=== PATIENT | female | born 1950 | race Caucasian/White ===

== ENCOUNTER → 2016-07-13 | Outpatient (CLI) | payer MEDICARE ==
--- NOTE | 2016-07-13 12:05 | REPMRS ---
Patient History The patient states she has not had a clinical breast exam in over a year. Patient is postmenopausal. Family history of premenopausal breast cancer in mother at age 50. Taking unspecified hormones for 32 years. Digital Woman Screen Mammo: July 13, 2016 - Exam #: [id number] Bilateral CC and MLO view(s) were taken. Technologist: Belia Jolley, Technologist Prior study comparison: July 14, 2015, digital woman screen mammo performed at [facility]. December 15, 2013, digital woman screen mammo performed at [facility]. December 11, 2012, digital woman screen mammo performed at [facility]. FINDINGS: There are scattered fibroglandular densities. There has been no change in the appearance of the mammogram from the prior studies. There is a mild amount of scattered fibroglandular density which is fairly symmetric. There is no interval development of dominant mass, architectural distortion, or clustered microcalcification suggestive of malignancy. ASSESSMENT: BI-RADS/ACR category 1 mammogram. Negative. Recommendation Routine screening mammogram in 1 year (for women over age 40). This mammogram was interpreted with the aid of an FDA-approved computer-aided dectection system. Electronically Signed By: Noe Burnett MD 07/13/16 [id number]
== END ==
LOC: M WHC 11:08
PROVIDERS: ATTEND Family Medicine
DX: Z12.31 Encounter for screening mammogram for malignant neoplasm of breast (principal); Z80.3 Family history of malignant neoplasm of breast; Z78.0 Asymptomatic menopausal state

== ENCOUNTER → 2016-08-15 | Outpatient (REF) | payer MEDICARE | LOC: M LAB REF 17:20 | PROVIDERS: ATTEND Family Medicine | DX: Z01.89 Encounter for other specified special examinations (principal) ==

== ENCOUNTER → 2016-12-18 | Outpatient (REF) | payer MEDICARE | LOC: M LAB REF 13:52 | PROVIDERS: ATTEND Family Medicine | DX: E78.5 Hyperlipidemia, unspecified (principal) ==

== ENCOUNTER → 2017-11-01 | Outpatient (REF) | payer MEDICARE ==
[2017-11-02 08:06] LABS: LDL DIRECT 111 mg/dL (0-99)
== END ==
LOC: M LAB REF 14:16
DX: E78.5 Hyperlipidemia, unspecified (principal)
CPT/HCPCS: 83721

== ENCOUNTER → 2018-03-07 | Outpatient (REF) | payer MEDICARE ==
[2018-03-07 14:45] LABS: URIC ACID 4.1 MG/DL (2.6-6.0)
== END ==
LOC: M LAB REF 13:48
DX: M10.9 Gout, unspecified (principal)
CPT/HCPCS: 84550

== ENCOUNTER → 2018-04-18 | Outpatient (CLI) | payer MEDICARE | LOC: M WHC 14:11 | DX: Z13.820 Encounter for screening for osteoporosis (principal); Z12.31 Encounter for screening mammogram for malignant neoplasm of breast; Z80.3 Family history of malignant neoplasm of breast; Z78.0 Asymptomatic menopausal state | CPT/HCPCS: 77067 ==

== ENCOUNTER → 2018-07-31 | Outpatient (REF) | payer MEDICARE ==
[2018-08-01 08:07] LABS: LDL DIRECT 132 mg/dL (0-99)
== END ==
LOC: M LAB REF 12:01
PROVIDERS: ATTEND Family Medicine
DX: E11.65 Type 2 diabetes mellitus with hyperglycemia (principal); E11.51 Type 2 diabetes mellitus with diabetic peripheral angiopathy without gangrene; E78.5 Hyperlipidemia, unspecified

== ENCOUNTER 2018-10-17 09:17 | Day surgery (SDC) | payer MEDICARE ==
[~2018-10-17] VITALS: Ht 154.9 cm; Wt 87.1 kg
[~2018-10-17 09:17] MED LIST: ALBU17IN2 INH; BUPR15TA PO; CLAR10CA3 PO; ESTR625TA PO; FLUT22IN INH; FURO20TA2 PO; HUMA100I3 SC; HYDR-2807 PO; INDO50CA PO; KLOR10TA76 PO; LANTINJ4 SC; LIDO5DIS41 TD; LISI10TA4 PO; MAGN64TASA PO; METO1TAB33 PO; MOME50SP; NS 1,000 ML IV ONE; SLOWTAB2 PO; SPIR1CAP INH; VITA50005 PO; VITA500T17 PO; XALA0.007 OU; ZETI10TA30 PO
[2018-10-17] MEDS ORDERED: PROPOFOL 200 MG/20 ML VIAL As Ordered ONE ×2 (10:21→10:23)
--- NOTE | 2018-10-17 10:30 | ROOR ---
Patient Name: Michelle Landon Procedure Date: 10/17/2018 9:57 AM Date of : 1950 Age: 68 Room: [facility] Gender: Female Note Status: Finalized Procedure: Colonoscopy Indications: Screening for colorectal malignant neoplasm Providers: Shayne BILLINGS MD Referring MD: Mike Montiel MD Requesting Provider: Medicines: Monitored Anesthesia Care Complications: No immediate complications. Procedure: Pre-Anesthesia Assessment: - The heart rate, respiratory rate, oxygen saturations, blood pressure, adequacy of pulmonary ventilation, and response to care were monitored throughout the procedure. The Colonoscope was introduced through the anus and advanced to the terminal ileum, with identification of the appendiceal orifice and IC valve. The colonoscopy was performed without difficulty. The patient tolerated the procedure well. The quality of the bowel preparation was good. Findings: The perianal and digital rectal examinations were normal. A 4 mm polyp was found in the sigmoid colon. The polyp was sessile. The polyp was removed with a cold snare. Resection and retrieval were complete. Multiple medium-mouthed diverticula were found in the sigmoid colon. There was evidence of diverticular spasm. Small Internal Hemorrhoids. The exam was otherwise without abnormality on direct and retroflexion views. Impression: - One 4 mm polyp in the sigmoid colon, removed with a cold snare. Resected and retrieved. - Diverticulosis in the sigmoid colon. There was evidence of diverticular spasm. - Small Internal Hemorrhoids. - The examination was otherwise normal on direct and retroflexion views. Recommendation: - Repeat colonoscopy in 5 years for surveillance. Shayne Billings MD Shayne BILLINGS MD 10/17/2018 10:30:21 AM Electronically signed by Shayne BILLINGS MD Number of Addenda: 0 Note Initiated On: 10/17/2018 9:57 AM Estimated Blood Loss: Estimated blood loss: none.
[2018-10-17 10:50] VITALS: BP 136/79
== END 2018-10-17 11:45 | disposition home or self-care (01) ==
LOC: M OPP 09:17
PROVIDERS: ATTEND Internal Medicine Gastroenterology
DX: D12.5 Benign neoplasm of sigmoid colon (principal); K57.30 Diverticulosis of large intestine without perforation or abscess without bleeding; K64.8 Other hemorrhoids; Z12.11 Encounter for screening for malignant neoplasm of colon

== ENCOUNTER → 2019-11-27 | Outpatient (REF) | payer MEDICARE ==
[~2019-11-27] MED LIST changes: -ALBU17IN2 INH; -INDO50CA PO; +INDO50CA91 PO; -NS 1,000 ML IV ONE; +PROV108A INH; +ZETI10TA16 PO; -ZETI10TA30 PO
== END ==
LOC: M LAB REF 12:22
PROVIDERS: ATTEND Family Medicine
DX: R10.9 Unspecified abdominal pain (principal); I12.9 Hypertensive chronic kidney disease with stage 1 through stage 4 chronic kidney disease, or unspecified chronic kidney disease

== ENCOUNTER → 2019-12-11 | Outpatient (REF) | payer MEDICARE ==
[~2019-12-11] MED LIST changes: +MAGN400T3 PO; +OMEG10002 PO; +POTA1TAB21; +ZYLO300T6
[2019-12-11 16:50] LABS: APPEARANCE, URINE CLOUDY (CLEAR); BACTERIA, URINE AUTO 1+ (NEGATIVE); BILIRUBIN, URINE AUTO NEGATIVE (NEGATIVE); BLOOD, URINE BLOOD 1+ (NEGATIVE); COLOR, URINE YELLOW (YELLOW); GLUCOSE, URINE (UA) AUTO NEGATIVE (NEGATIVE); KETONE, URINE AUTO NEGATIVE (NEGATIVE); LEUKOCYTE ESTERASE, URINE AUTO 3+ (NEGATIVE); MUCUS, URINE SMALL (NEGATIVE); NITRITE, URINE AUTO NEGATIVE (NEGATIVE); PROTEIN, URINE AUTO NEGATIVE (NEGATIVE); RBC, URINE AUTO 6 /HPF (0-3); SPECIFIC GRAVITY URINE AUTO 1.014 (1.002-1.035); SQUAMOUS EPITHELIAL CELL UR AU 5 /HPF (0-6); UROBILINOGEN, URINE AUTO 0.2 mg/dL (0.0-2.0); WBC, URINE AUTO TNTC /HPF (0-3)
== END ==
LOC: M LAB REF 16:07
PROVIDERS: ATTEND Family Medicine
DX: N18.4 Chronic kidney disease, stage 4 (severe) (principal); R60.9 Edema, unspecified

== ENCOUNTER 2019-12-16 13:40 | Emergency (ER) | payer MEDICARE ==
[~2019-12-16] VITALS: Ht 154.9 cm; Wt 86.0 kg
[~2019-12-16 13:40] MED LIST changes: -MAGN400T3 PO; -OMEG10002 PO; -POTA1TAB21; -ZYLO300T6
[2019-12-16] MEDS ORDERED: OMEG10002 PO (13:56)
[2019-12-16] MEDS ORDERED: ZYLO300T6 (13:56)
[2019-12-16] MEDS ORDERED: MAGN400T3 PO (13:56)
[2019-12-16] MEDS ORDERED: POTA1TAB21 (13:56)
[2019-12-16 14:35] LABS: BASO # 0.1 10^3/uL (0.0-0.2); BASO % 0.8 % (0.0-1.0); EOS # 0.3 10^3/uL (0.0-0.5); EOS % 2.9 % (0.0-3.0); HEMATOCRIT 40.2 % (36.0-47.0); HEMOGLOBIN 13.3 g/dl (12.0-15.5); LYMPH # 2.9 10^3/uL (1.5-5.0); LYMPH % 32.9 % (24.0-44.0); MEAN CORPUSCULAR HEMOGLOBIN 30.9 pg (27.0-33.0); MEAN CORPUSCULAR HGB CONC 33.1 g/dl (32.0-36.5); MEAN CORPUSCULAR VOLUME 93.5 fl (80.0-96.0); MONO # 0.7 10^3/uL (0.0-0.8); MONO % 8.2 % (0.0-5.0); NEUTROPHILS # 4.9 10^3/uL (1.5-8.5); NEUTROPHILS % 55.1 % (36.0-66.0); PLATELET COUNT, AUTOMATED 203 10^3/uL (150-450); WHITE BLOOD COUNT 8.8 10^3/uL (4.0-10.0)
--- NOTE | 2019-12-16 15:41 | REP ---
CT ABDOMEN PELVIS WITHOUT IV OR ORAL CONTRAST: HISTORY: Lap band surgical history. Abdominal wall erosion. Comparison CT study June 05, 2008. 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 Bowel gas pattern is unremarkable. On axial CT images, the lung bases are essentially clear with minimal linear fibrosis on the right. A lap band is seen in place in the left upper quadrant. No hepatic or splenic focal lesion is seen. No abnormalities noted in the gallbladder or the pancreas. Normal adrenal glands are seen bilaterally. There is mild subcutaneous edema in the anterior abdominal wall predominately to the left of midline. The lap band reservoir access device is in the anterior abdominal subcutaneous fat just to the right of midline. There is no evidence of free intraperitoneal air or fluid. No abnormal fluid collection is seen. Small and large bowel loops are unremarkable the appendix is not well seen but there is no inflammatory change to suggest appendicitis. Uterus is surgically absent. IMPRESSION: Lap band device left upper quadrant appears in good position. There is no evidence of free air or abnormal fluid collection. No acute intra-abdominal abnormality. There is some edema of the anterior abdominal wall. Electronically Signed by Ramy Burnett MD 12/17/2019 08:10 A
[2019-12-16 16:12] VITALS: BP 158/70
== END 2019-12-16 16:19 | disposition home or self-care (01) ==
LOC: M ED 13:40
DX: S31.109A Unspecified open wound of abdominal wall, unspecified quadrant without penetration into peritoneal cavity, initial encounter (principal); K95.09 Other complications of gastric band procedure; Z79.4 Long term (current) use of insulin; Z79.51 Long term (current) use of inhaled steroids; Z79.899 Other long term (current) drug therapy; Z88.2 Allergy status to sulfonamides; Z88.8 Allergy status to other drugs, medicaments and biological substances

== ENCOUNTER 2019-12-26 14:52 | Emergency (ER) | payer MEDICARE ==
[~2019-12-26] VITALS: Ht 154.9 cm; Wt 85.3 kg
[~2019-12-26 14:52] MED LIST changes: +MAGN400T3 PO; +OMEG10002 PO; +POTA1TAB21; +ZYLO300T6
[2019-12-26] MEDS ORDERED: GASTROGRAFIN SOLUTION 30ML (Q9963) As Ordered ONE (15:27)
[2019-12-26] MEDS: GASTROGRAFIN SOLUTION 30ML PO SCH ×2 (15:48→16:17)
[2019-12-26 16:09] LABS: BASO # 0.1 10^3/uL (0.0-0.2); BASO % 0.9 % (0.0-1.0); EOS # 0.3 10^3/uL (0.0-0.5); EOS % 2.9 % (0.0-3.0); HEMATOCRIT 40.7 % (36.0-47.0); LYMPH # 3.3 10^3/uL (1.5-5.0); LYMPH % 36.7 % (24.0-44.0); MEAN CORPUSCULAR HEMOGLOBIN 31.1 pg (27.0-33.0); MEAN CORPUSCULAR HGB CONC 34.4 g/dl (32.0-36.5); MEAN CORPUSCULAR VOLUME 90.4 fl (80.0-96.0); MONO # 0.6 10^3/uL (0.0-0.8); MONO % 6.1 % (0.0-5.0); NEUTROPHILS # 4.8 10^3/uL (1.5-8.5); NEUTROPHILS % 53.1 % (36.0-66.0); PLATELET COUNT, AUTOMATED 187 10^3/uL (150-450)
[2019-12-26 16:20] LABS: ALBUMIN 3.7 GM/DL (3.2-5.2); ALT/SGPT 68 U/L (12-78); BILIRUBIN,DIRECT < 0.1 MG/DL (0.0-0.2); BILIRUBIN,TOTAL 0.3 MG/DL (0.2-1.0); BLOOD UREA NITROGEN 40 MG/DL (7-18); CALCIUM LEVEL 9.9 MG/DL (8.8-10.2); CARBON DIOXIDE LEVEL 26 MEQ/L (21-32); CHLORIDE LEVEL 100 MEQ/L (98-107); CK-MB VALUE MASS 10.1 NG/ML (<3.6); CPK CREATINE PHOSPHOKINASE 349 U/L (26-192); CREATININE FOR GFR 1.52 MG/DL (0.55-1.30); GLOMERULAR FILTRATION RATE 35.9 (>39); GLUCOSE, FASTING 300 MG/DL (70-100); LIPASE 359 U/L (73-393); MB/CK RELATIVE INDEX 2.89 (< OR =4); SODIUM LEVEL 134 MEQ/L (136-145); TOTAL PROTEIN 7.3 GM/DL (6.4-8.2); TROPONIN I < 0.02 NG/ML (< 0.10)
[2019-12-26 16:21] LABS: INR 1.1; PROTHROMBIN TIME 13.9 SECONDS (11.8-14.0)
[2019-12-26 16:22] LABS: PARTIAL THROMBOPLASTIN TIME 33.8 SECONDS (25.0-38.4)
[2019-12-26] MEDS ORDERED: NS 500 ML IV ONE (16:30)
[2019-12-26] MEDS ORDERED: ISOVUE-370 76% 100ML VIAL As Ordered ONE (17:25)
--- NOTE | 2019-12-26 18:05 | REPVR ---
PROCEDURE INFORMATION: Exam: CT Abdomen And Pelvis With Contrast Exam date and time: 12/26/2019 5:43 PM Age: 69 years old Clinical indication: Abdominal pain; Generalized; Additional info: S/P lap band with band coming through abdominal wall TECHNIQUE: Imaging protocol: Computed tomography of the abdomen and pelvis with intravenous contrast. Radiation optimization: All CT scans at this facility use at least one of these dose optimization techniques: automated exposure control; mA and/or kV adjustment per patient size (includes targeted exams where dose is matched to clinical indication); or iterative reconstruction. Contrast material: ISOVUE 370; Contrast volume: 100 ml; Contrast route: INTRAVENOUS (IV); COMPARISON: CT ABD PELVIS W/O CONTRAST 12/16/2019 2:55 PM FINDINGS: Lungs: Bilateral noncalcified pulmonary parenchymal nodules measuring up to 6 mm likely postinflammatory. Liver: Examination of the liver demonstrates a lobular surface contour, and enlargement of the left and caudate lobes, findings which may be consistent with cirrhosis in the appropriate clinical setting. Hepatic steatosis. Gallbladder and bile ducts: Normal. No calcified stones. No ductal dilation. Pancreas: Normal. No ductal dilation. Spleen: Normal. No splenomegaly. Adrenals: There is bilateral adrenal hyperplasia. Kidneys and ureters: Normal. No hydronephrosis. Stomach and bowel: Status post lap banding. There is increased feces throughout the colon consistent with constipation. Appendix: No evidence of appendicitis. Intraperitoneal space: Unremarkable. No free air. No significant fluid collection. Vasculature: The aorta demonstrates mild atherosclerotic calcification. Lymph nodes: Unremarkable. No enlarged lymph nodes. Bladder: Unremarkable as visualized. Reproductive: There has been a hysterectomy. Bones/joints: Moderate to severe central spinal stenosis at L2-L3, L3-L4, and L4-L5. Soft tissues: [place] device located in the right side of the abdomen within the subcutaneous fat of the anterior abdominal wall with tubing coursing through the right upper quadrant the to the lap band. Inflammatory changes demonstrated in the soft tissues of the anterior abdominal wall centered to the right of midline associated with skin thickening. Clinical correlation to exclude infection suggested. IMPRESSION: 1. Bilateral noncalcified pulmonary parenchymal nodules measuring up to 6 mm likely postinflammatory. For patients at low risk (minimal or absent history of smoking and of other known risk factors), no routine follow-up is indicated. For patients at high risk (history of smoking or of other known risk factors), consider optional CT at 12 months. (Matias et al., Fleischner Society, 2017) 2. Examination of the liver demonstrates a lobular surface contour, and enlargement of the left and caudate lobes, findings which may be consistent with cirrhosis in the appropriate clinical setting. Hepatic steatosis. 3. Status post lap banding. 4. There is bilateral adrenal hyperplasia. 5. Inflammatory changes demonstrated in the soft tissues of the anterior abdominal wall centered to the right of midline associated with skin thickening. Clinical correlation to exclude infection suggested. 6. There is increased feces throughout the colon consistent with constipation. 7. There has been a hysterectomy. Electronically signed by: Devon Conde On 12/26/2019 18:05:27 PM
[2019-12-26 19:04] LABS: NT-PRO BNP 63 PG/ML (<125)
[2019-12-26] MEDS ORDERED: AUGM875T28 PO (20:04)
[2019-12-26 21:23] VITALS: BP 136/73
[2019-12-26] MEDS ORDERED: COLA100C5 PO (21:36)
[2019-12-26] MEDS ORDERED: AUGMENTIN 875 MG TAB PO ONE (21:45)
--- NOTE | 2019-12-31 09:32 | ED PDOC ---
Post-Departure Follow-Up ct abd/p faxed to [facility] for fu Josseline Brown MD Dec 31, 2019 09:32
== END 2019-12-26 21:57 | disposition home or self-care (01) ==
LOC: M ED 14:52
DX: K95.89 Other complications of other bariatric procedure (principal); K76.0 Fatty (change of) liver, not elsewhere classified; R91.8 Other nonspecific abnormal finding of lung field; E27.8 Other specified disorders of adrenal gland; E11.9 Type 2 diabetes mellitus without complications; I10 Essential (primary) hypertension; E78.5 Hyperlipidemia, unspecified; K21.9 Gastro-esophageal reflux disease without esophagitis; Z79.4 Long term (current) use of insulin; Z79.51 Long term (current) use of inhaled steroids; Z79.899 Other long term (current) drug therapy; Z87.442 Personal history of urinary calculi; Z87.891 Personal history of nicotine dependence; Z88.2 Allergy status to sulfonamides; Z88.8 Allergy status to other drugs, medicaments and biological substances; Z98.84 Bariatric surgery status
CPT/HCPCS: 74177; 80048; 80076; 81001; 82550; 82553; 83605; 83690; 83880; 84484; 85025; 85610; 85730; 87040; 87088; 87186; 99284; Q9967

== ENCOUNTER → 2020-02-16 | Outpatient (REF) | payer MEDICARE ==
[~2020-02-16] MED LIST changes: +AUGM875T28 PO; +COLA100C5 PO; -HYDR-2807 PO; +HYDR-4433 PO
== END ==
LOC: M SFHCLUC 11:18
PROVIDERS: ATTEND Nurse Practitioner Family
DX: R30.0 Dysuria (principal)

== ENCOUNTER → 2020-03-17 | Outpatient (REF) | payer MEDICARE | LOC: M LAB REF 16:02 | PROVIDERS: ATTEND Family Medicine | DX: N39.0 Urinary tract infection, site not specified (principal) ==

== ENCOUNTER → 2020-06-07 | Outpatient (CLI) | payer MEDICARE | LOC: M LABSMTC 11:31 | PROVIDERS: ATTEND Pediatrics | DX: Z20.828 Contact with and (suspected) exposure to other viral communicable diseases (principal) ==

== ENCOUNTER 2020-09-19 15:20 | Inpatient (IN) | payer MEDICARE ==
[2020-09-19] VITALS (13 sets, daily range): BP systolic 153–184; BP diastolic 71–80
[~2020-09-19] VITALS: Ht 157.5 cm; Wt 84.4 kg
[2020-09-19] MEDS: HumaLOG INSULIN (NovoLOG) PER UNIT SC SCH ×4 (07:30→23:00)
[~2020-09-19 15:20] MED LIST changes: +LISI10TA22 PO; -LISI10TA4 PO; -MOME50SP; +MOME50SP NARES; -POTA1TAB21; +POTA1TAB21 PO; -ZYLO300T6; +ZYLO300T6 PO
[2020-09-19 16:02] LABS: BASO % 0.2 % (0.0-1.0); HEMATOCRIT 47.3 % (36.0-47.0); HEMOGLOBIN 15.7 g/dl (12.0-15.5); LYMPH # 1.8 10^3/uL (1.5-5.0); LYMPH % 8.7 % (24.0-44.0); MEAN CORPUSCULAR HEMOGLOBIN 29.3 pg (27.0-33.0); MEAN CORPUSCULAR HGB CONC 33.2 g/dl (32.0-36.5); MEAN CORPUSCULAR VOLUME 88.4 fl (80.0-96.0); MONO # 1.4 10^3/uL (0.0-0.8); MONO % 6.9 % (2.0-8.0); NEUTROPHILS # 17.3 10^3/uL (1.5-8.5); NEUTROPHILS % 83.3 % (36.0-66.0); PLATELET COUNT, AUTOMATED 255 10^3/uL (150-450); RED BLOOD COUNT 5.35 10^6/uL (4.00-5.40); WHITE BLOOD COUNT 20.7 10^3/uL (4.0-10.0)
[2020-09-19] MEDS ORDERED: NS 1,000 ML IV ONE ×2 (16:20→18:15)
[2020-09-19] MEDS: HYDROMORPHONE HCL 0.5 MG/ 0.5 ML SYRINGE (J1170 PER 1) IV PRN ×2 (16:24→17:00)
[2020-09-19] MEDS ORDERED: PANTOPRAZOLE 40MG VIAL (C9113 PER 1) IV ONE (16:30)
[2020-09-19] MEDS ORDERED: ISOVUE-370 76% 100ML VIAL As Ordered ONE (16:31)
--- NOTE | 2020-09-19 17:42 | REP ---
INDICATION: abdominal pain, coffee ground emesis. COMPARISON: Abdomen pelvis CT studies dated 12/26/2019 and 12/16/2019. TECHNIQUE: Abdomen and pelvis CT with IV and bowel contrast. FINDINGS: The visualized lung dawson are unremarkable. There is a lap band surrounding the gastroesophageal junction as previously. However, the subcutaneous reservoir this lab band that was present previously is no longer identified. The proximal tip of the lap band catheter is intraperitoneal along the right lateral abdominal wall just inferior to the tip of the liver. There is herniation of intraperitoneal fat through the previous lap band entrance site. The hernia measures 2.3 cm in diameter. The peritoneal defect measures 7 mm in diameter. There is a small volume of free fluid surrounding the lateral margin of the liver as an interval change. The stomach is distended with fluid and there is an air-fluid level in the stomach. There are no hepatic masses or nodules. There is no biliary duct dilatation. The gallbladder is distended but otherwise unremarkable. There is no pericholecystic fluid. No cholelithiasis. Up There is focal phlegmon medial to the descending duodenum and inferior to the pancreatic head. Within the zone of phlegmon there appears to be some of the opacified bowel contents and a few tiny air bubbles. This may represent duodenal perforation, possibly perforated ulcer. There is no pneumoperitoneum otherwise. There are a few distended small bowel loops, possibly focal ileus. There is no evidence of bowel obstruction. Is no colonic distention. There is wall thickening of the descending colon. This is compatible with inflammatory versus infectious colitis in the appropriate clinical setting. The spleen and pancreas are otherwise unremarkable. The adrenals and kidneys are unremarkable. The abdominal aorta is unremarkable except for calcified atheroma. There is no periaortic adenopathy or mass. Pelvis: There is no free fluid. The bladder is unremarkable. There is a hysterectomy. The vaginal cuff and adnexa are unremarkable. The bladder is unremarkable except for a tiny air bubble along the anterior wall. IMPRESSION: There is a large phlegmon measuring approximately 5.7 cm in diameter medial to the descending duodenum and inferior to the pancreatic head containing opacified bowel content and a few tiny air bubbles. This may represent duodenal perforation, possibly perforation of a duodenal ulcer. There is no pneumoperitoneum otherwise. There is a small volume of free fluid surrounding the lateral margin of the liver. The stomach is distended with fluid with and containing a large fluid level. There findings concerning the lap band as discussed in detail above. The reservoir is no longer identified. The proximal tip of the catheter is intraperitoneal along the lateral abdominal wall. There is a fat containing hernia through the original lap band ostomy site. There are a few dilated small bowel loops, possibly focal ileus. No evidence of bowel obstruction. There is a tiny air bubble long the anterior wall of the bladder, possibly from recent catheterization. <Electronically signed by Bear Leach > 09/19/20 [id number]
[2020-09-19 17:47] LABS: ALBUMIN 3.2 GM/DL (3.2-5.2); BILIRUBIN,DIRECT 0.2 MG/DL (0.0-0.2); BILIRUBIN,TOTAL 0.5 MG/DL (0.2-1.0); CALCIUM LEVEL 8.7 MG/DL (8.8-10.2); CREATININE FOR GFR 1.52 MG/DL (0.55-1.30); GLOMERULAR FILTRATION RATE 35.9 (>39); POTASSIUM SERUM 4.8 MEQ/L (3.5-5.1); TOTAL PROTEIN 6.2 GM/DL (6.4-8.2)
[2020-09-19] MEDS ORDERED: HYDROMORPHONE HCL 0.5 MG/ 0.5 ML SYRINGE (J1170 PER 1) IV PRN (18:15)
[2020-09-19] MEDS ORDERED: HumuLIN R (REGULAR) INSULIN (NovoLIN R) **100U/ML** PER UNIT IV ONE (18:20)
[2020-09-19] MEDS ORDERED: LIDO5DIS41 TD (18:46)
[2020-09-19] MEDS ORDERED: VITA50005 PO (18:46)
[2020-09-19] MEDS ORDERED: ESTR3TA PO (18:46)
[2020-09-19] MEDS ORDERED: propofoL 200 MG/20 ML VIAL As Ordered ONE (18:54)
[2020-09-19] MEDS ORDERED: ROCURONIUM BROMIDE 50 MG/5 ML VIAL As Ordered ONE (18:54)
[2020-09-19] MEDS ORDERED: LIDOCAINE 2% 100MG/5ML SDV (FOR ANES.) As Ordered ONE (18:54)
[2020-09-19] MEDS ORDERED: fentaNYL 250 MCG/5 ML INJECTION (J3010) As Ordered ONE (18:54)
[2020-09-19] MEDS ORDERED: MIDAZOLAM INJ 2MG/2ML VIAL (J2250 PER 1MG) As Ordered ONE (18:54)
[2020-09-19] MEDS ORDERED: BUPIVACAINE/EPIN 0.25% 30 ML VIAL As Ordered ONE (19:00)
[2020-09-19 19:02] LABS: RSV AMPLIFICATION NEGATIVE (NEGATIVE)
--- NOTE | 2020-09-19 19:37 | ECGEPIP ---
[facility] - ED Test Date: 2020-09-19 Pat Name: MARISOL COBOS Department: Room: - Gender: Female Presentation Manager: CARLA : 1950 Requested By: SHAYNE Lyons Order Number: [id number] Reading MD: Shayne Gomes Measurements Intervals [place] Rate: 111 P: 76 CO: 178 QRS: -57 QRSD: 120 T: 93 QT: 338 QTc: 459 Interpretive Statements Sinus tachycardia Left axis deviation Left ventricular hypertrophy with QRS widening and repolarization abnormality Possible Anteroseptal infarct , age undetermined Comparison tracing not on file Electronically Signed on 09-19-2020 19:37:32 EDT by Shayne Gomes
[2020-09-19] MEDS ORDERED: UNASYN 3 GM VIAL As Ordered ONE (19:41)
[2020-09-19] MEDS ORDERED: FLUTICASONE HFA 220 MCG 12 GM INHALER (FLOVENT) INH PRN (20:00)
--- NOTE | 2020-09-19 20:01 | REPVR ---
PROCEDURE INFORMATION: Exam: XR Chest Exam date and time: 09/19/2020 6:23 PM Age: 69 years old Clinical indication: Pre-operative exam; Respiratory screening exam; Additional info: Preop TECHNIQUE: Imaging protocol: XR of the chest Views: 1 view. COMPARISON: No relevant prior studies available. FINDINGS: Lungs: Unremarkable. No consolidation. Pleural spaces: Unremarkable. No pleural effusion. No pneumothorax. Heart/Mediastinum: Unremarkable. No cardiomegaly. Bones/joints: The spine demonstrates moderate degenerative changes. IMPRESSION: No acute findings. Electronically signed by: Devon Conde On 09/19/2020 20:01:29 PM
[2020-09-19] MEDS ORDERED: SUCCINYLCHOLINE 100 MG/5 ML SYRINGE (J0330) As Ordered ONE (20:14)
[2020-09-19] MEDS ORDERED: diphenhydrAMINE 50MG/ML VIAL (J1200) As Ordered ONE (20:15)
[2020-09-19] MEDS ORDERED: SUGAMMADEX SODIUM 500 MG/5 ML VIAL (BRIDION) As Ordered ONE (20:15)
[2020-09-19] MEDS ORDERED: KETOROLAC 60MG 2ML VIAL As Ordered ONE (20:15)
[2020-09-19] MEDS ORDERED: ACETAMINOPHEN 1000MG 100ML IV BTL (OFIRMEV) (J0131 PER 10MG) As Ordered ONE (20:15)
[2020-09-19] MEDS ORDERED: ONDANSETRON 4MG/2ML VIAL As Ordered ONE (20:15)
[2020-09-19] MEDS ORDERED: ESMOLOL INJ 100MG/10ML VIAL As Ordered ONE (20:21)
[2020-09-19] MEDS ORDERED: HumaLOG INSULIN (NovoLOG) PER UNIT SC SCH (21:00)
[2020-09-19] MEDS ORDERED: FUROSEMIDE 20 MG TAB PO SCH (21:00)
[2020-09-19] MEDS: buPROPion **SR TABLET** (ZYBAN) 150MG PO SCH (21:00)
[2020-09-19] MEDS: LABETALOL 100MG/20ML VIAL IV SCH ×13 (21:13→22:30)
[2020-09-19] MEDS ORDERED: ALBUTEROL 90 MCG/ACT 8GM HFA INHALER INH SCH (21:15)
[2020-09-19] MEDS ORDERED: DEXTROSE 50% 50 ML SYRINGE IV PRN ×2 (21:15→23:00)
[2020-09-19] MEDS ORDERED: PIPERACILLIN/TAZOBACTAM SOD 3.375 GM in D5W MINI-BAG PLUS 50 ML IV SCH (21:15)
[2020-09-19] MEDS ORDERED: GLUCOSE 4GM CHEW TABLET PO PRN ×2 (21:15→23:00)
[2020-09-19] MEDS ORDERED: GLUCAGON INJ 1MG VIAL SC PRN ×2 (21:15→23:00)
[2020-09-19] MEDS ORDERED: fentaNYL 100 MCG/2 ML INJECTION (J3010) As Ordered ONE (21:20)
[2020-09-19] MEDS ORDERED: LABETALOL 100MG/20ML VIAL As Ordered ONE (21:20)
[2020-09-19] MEDS ORDERED: METOPROLOL 5 MG/5 ML VIAL IV STA (21:21)
[2020-09-19] MEDS: fentaNYL 100 MCG/2 ML INJECTION (J3010) IV PRN ×4 (21:22→22:51)
[2020-09-19] MEDS ORDERED: LR 1,000 ML IV SCH (21:30)
[2020-09-19] MEDS ORDERED: fentaNYL 100 MCG/2 ML INJECTION (J3010) IV PRN (21:30)
[2020-09-19] MEDS ORDERED: oxyCODONE 5MG TAB PO PRN (21:30)
[2020-09-19] MEDS ORDERED: METOPROLOL 5 MG/5 ML VIAL IV PRN (22:40)
--- NOTE | 2020-09-19 22:53 | HPE ---
HISTORY AND PHYSICAL DATE OF ADMISSION: 09/19/2020 ADMITTING DIAGNOSIS: Abdomen pain. HISTORY OF PRESENT ILLNESS: This is a 70-year-old female, who presented with history of abdominal pain that started yesterday afternoon. Pain got progressively worse overnight into this morning. She came into the emergency room for evaluation. She was having some slight nausea, no emesis. No bowel movements in a couple of days. On examination, she had an elevated white count, as well as CT findings consistent with phlegmon surrounding the duodenum with a couple of small air bubbles within it, questionable perforated duodenal ulcer. Because of this, I was called to evaluate. She denied ever having any problems like this in the past. She has had a history of a lap band that was dislodged a few years ago and the subcu port had been removed, but all the rest of the band of the tubing had been left in place. She has not had any other problems since that procedure. She denies any other changes. No changes to diet or medications recently. No changes in activity. She has never had problems with acid reflux or heartburn in the past, but says that she did have some last evening for the first time ever. She denies being on any medications for those, other than she used to take occasional Zantac. She denies drug, alcohol or tobacco usage. No caffeine. No [id number] medications. PAST MEDICAL HISTORY: 1. Hypertension. 2. Diabetes. 3. Chronic obstructive pulmonary disease (COPD). PAST SURGICAL HISTORY: Hysterectomy, lap band procedure, removal of lap band subcutaneous port, carpal tunnel. ALLERGIES: SULFA, FENOFIBRATE, PHENAZOPYRIDINE, PSEUDOPHEDRINE, ROSUVASTATIN HOME MEDICATIONS: Please see med rec REVIEW OF SYSTEMS: For positives and negatives, as stated in history of present illness. SOCIAL HISTORY: Denies drugs, alcohol or tobacco abuse. FAMILY HISTORY: Noncontributory. PHYSICAL EXAMINATION: Alert and oriented times 3, in no acute distress. Vitals: Temperature 98.6, pulse 112, respirations 26, blood pressure 135/92, pulse oximetry 98% on room air. HEENT: Pupils equal, round and reactive to light and accommodation. Heart: S1, S2 regular rate and rhythm. Lungs: Clear to auscultation bilaterally. Abdomen: Soft, tender to palpation in the upper abdomen with low, guarding and rigidity. Extremities: No clubbing, cyanosis or edema. LABORATORY: White count 20.7, hemoglobin 15.7, platelets 255. Lactic acid 3.5. Glucose 439. IMAGING: CT abdomen and pelvis shows a large phlegmon measuring approximately 5.7 cm in diameter medial to the descending duodenum and inferior to the pancreatic head containing opacified bowel content and a few tiny air bubbles; it may represent duodenal perforation, possibly perforation of duodenal ulcer. There is no pneumoperitoneum otherwise. There is small bowel and free fluid surrounding the lateral margin of the liver. The stomach is distended with fluid containing a large fluid bubble. ASSESSMENT AND PLAN: The patient is a 69-year-old female with a history of a lap band procedure, as well as what sounds to be an infected subcutaneous port that was subsequently removed. She presents today with severe abdominal pain with signs of phlegmon next to the duodenum and the pancreas, a couple of air bubbles concerning for contained perforation versus perforated duodenal ulcer. Recommendation at this time is to proceed with exploratory laparoscopy done robotically with washout of the abdomen and possible oversewing over this duodenal ulcer. Risks and benefits of the procedure are not limited to, but included bleeding, infection, hernias, damage to surrounding structures and need for further surgery were discussed in detail with the patient. Informed consent was obtained and procedure was planned. Postoperative, she will be kept in the hospital on IV fluids and antibiotics, strict NPO with NG tube in place until this process resolves. I warned her that due to the severe inflammation in the area she may be at high risk, greater than 50% chance of needing a second surgery during her hospitalization. She understands and signed consent and procedure was planned urgently.
[2020-09-19] MEDS ORDERED: niCARdipine 40MG IN 200ML NACL IV BAG As Ordered ONE (22:55)
[2020-09-19] MEDS ORDERED: LEVEMIR (INSULIN DETEMIR) 1 UNITS/0.01ML SC SCH (23:00)
--- NOTE | 2020-09-19 23:31 | HPEPDOC ---
[facility] Medical History & Physical Date of Admission Sep 19, 2020 Date of Service: Sep 19, 2020 Primary Care Physician: NICOLE TINAJERO M.D. Attending Physician: LOGAN RAI DO History and Physical TIME OF SERVICE: 1045pm REASON FOR CONSULT: Medical co-management CC: vomiting blood HISTORY OF PRESENT ILLNESS: This 69 yr old F had a lap gastric bypass 8 yrs ago with revision to remove an infected port about 8 months ago. Today she presented w c/o vomiting blood and 10/10 in severity sharp constant abdominal pain; due to suspicion that she may have a perforated duodenal ulcer she underwent ex robotic laparoscopy and was found to have an intra-abdominal abscess surrounding lap band procedure materials along with adhesions. Post-operatively she was found to have accele rated HTN with an SBP in the 200s. At the time of my evaluation the patient was lucid, and c/o some abdominal pain. She denied having any chest pain, dyspnea, dizziness or back pain. She last took her medications yesterday. PACU staff reported that the pt had previously been confused and had asked them to move the roof. REVIEW OF SYSTEMS: 12-point review of systems negative except as listed in HPI PAST MEDICAL/ SURGICAL HISTORY: IDDM CKD3 Essential HTN DLP COPD/Asthma Glaucoma KAREN not complaint w CPAP Vision impairment uses glasses OA / Debility uses cane/ walker Gout Class 2 obestiy s/p lap gastric bypass 8 yrs ago w revision 8 months ago Vitamin D deficiency Bilateral carpel tunnel surgery Hysterectomy SOCIAL HISTORY: She is a former smoker, from her , lives alone and has meals on wheels FAMILY HISTORY: Father of PNA, mother as a result of breast cancer, sister had laryngeal cancer, brother had stomach cancer, daughter has anorexia/bulimia ALLERGIES: Please see below. HOME MEDICATIONS: Please see below. PHYSICAL EXAMINATION: Vital Signs Date Time Temp Pulse Resp B/P (MAP) Pulse Ox O2 Delivery O2 Flow Rate FiO2 09/19/20 15:29 135/92 (106) 09/19/20 15:35 113 98 09/19/20 15:37 98.6 26 Room Air 09/19/20 21:20 4 .GENERAL APPEARANCE: well nourished well developed/ NAD HEENT: EOMI / NC in place CARDIOVASCULAR: RRR/NMRG LUNGS: CTAB on RA ABDOMEN: obese / post surgical drains w serrosanginous fluid in place NEUROLOGICAL: speech not dysarthric PSYCHIATRIC: alert, able to answer questions and follow simple commands LABORATORY DATA: 09/19/20 15:39 09/19/20 16:57 Immature Granulocyte % (Auto) 0.9, Neutrophils (%) (Auto) 83.3H, Lymphocytes (%) (Auto) 8.7L, Monocytes (%) (Auto) 6.9, Eosinophils (%) (Auto) 0.0, Basophils (%) (Auto) 0.2, Neutrophils # (Auto) 17.3H, Lymphocytes # (Auto) 1.8, Monocytes # (Auto) 1.4H, Eosinophils # (Auto) 0.0, Basophils # (Auto) 0.0, Nucleated Red Blood Cells % (auto) 0.0, Lactic Acid Level 3.5*H 09/19/20 15:45: POC Glucose (Misc Panel) 481H, POC Sodium (Misc Panel) 133L, POC Potassium (Misc Panel) 4.8, POC Chloride (Misc Panel) 94L, POC Total CO2 (Misc Panel) 30.0H, POC Blood Urea Nitrogen (Misc Panel 39H, POC Ionized Calcium (Misc Panel) 4.5, POC Creatinine (Misc Panel) 1.4H, POC Hematocrit (Misc Panel) 50.0 09/19/20 16:57: Anion Gap 9, Glomerular Filtration Rate 35.9L, Calcium Level 8.7L, Total Bilirubin 0.5, Direct Bilirubin 0.2, Aspartate Amino Transf (AST/SGOT) 43H, Alanine Aminotransferase (ALT/SGPT) 51, Alkaline Phosphatase 89, Total Protein 6.2L, Albumin 3.2, Albumin/Globulin Ratio 1.1L, Lipase 5612H 09/19/20 18:29: Bedside Glucose (Misc Panel) 372H 09/19/20 21:10: Bedside Glucose (Misc Panel) 302H 09/19/20 22:54: Bedside Glucose (Misc Panel) 264H IMAGING: CT abd/pelvis IMPRESSION: There is a large phlegmon measuring approximately 5.7 cm in diameter medial to the descending duodenum and inferior to the pancreatic head containing opacified bowel content and a few tiny air bubbles. This may represent duodenal perforation, possibly perforation of a duodenal ulcer. There is no pneumoperitoneum otherwise. There is a small volume of free fluid surroun ding the lateral margin of the liver.The stomach is distended with fluid with and containing a large fluid level. There findings concerning the lap band as discussed in detail above. The reservoir is no longer identified. The proximal tip of the catheter is intraperitoneal along the lateral abdominal wall. There is a fat containing hernia through the original lap band ostomy site. There are a few dilated small bowel loops, possibly focal ileus. No evidence of bowel obstruction. There is a tiny air bubble long the anterior wall of the bladder, possibly from recent catheterization. Chest xray IMPRESSION: No acute findings. MICROBIOLOGY: Coronavirus (COVID-19)(PCR) NEGATIVE, Influenza Type A (RT-PCR) NEGATIVE, Influenza Type B (RT-PCR) NEGATIVE, Respiratory Syncytial Virus (PCR) NEGATIVE ASSESSMENT: is a 69 yr old w a hx of lap band procedure that was revised 8 months ago, IDDM, CKD3, HTN, COPD/Asthma, Gout, & obesity who underwent ex robotic laparoscopy and was found to have an intra-abdominal abscess surrounding lap band procedure materials; we were consulted for medical co-management. PLAN: 1. Sepsis 2/2 Intraabdominal abscess Abx and IVF per 2 Acute pancreatitis NPO & pain meds per 3 Hypertensive Urgency Her BP didnt improve despite IV Nicardipine, IV metoprolol and pain meds Will transfer to ICU for Nicardipine drip / agree w continuing Lisinopril for now & will f/u BMP in the morning / check troponin 4 Uncontrolled IDDM Agree w SSI, FSBS and holding long acting insulin until she is able to eat / f/u A1C 5 Encephalopathy Had resolved at the time of my visit. May have been due sedatives, pain or HTN encephalopathy Will order neurochecks, c/w pain meds & treat HTN 6 COPD/Asthma Agree w albuterol PRN 7 CKD3 f/u BMP DVT px per Primary team Thank you for consulting us, we will continue to follow the patient with you Dispo: home after at least 2 midnights stay Late entry 300am 8 Elevated troponin likely 2/2 accelerated HTN We will order telemetry, continue to trend troponins, repeat an EKG, check lipids and an Echo Home Medications Scheduled Albuterol Sulfate (Proventil Hfa) 108 Mcg/Act Aer, 2 MCG INH Q4DP Allopurinol (Zyloprim) 300 Mg Tablet, 300 MG PO DAILY Amoxicillin/Potassium Clav (Augmentin 875-125 Tablet) 1 Each Tablet, 1 TAB PO BID Bupropion HCl (Wellbutrin Sr) 150 Mg Tabcr, 150 MG PO BID Conjugated Estrogens (Premarin) 0.3 Mg Tablet, 0.3 MG PO Q3RD Cyanocobalamin (Vitamin B-12) (Vitamin B-12) 500 Mcg Tab, 500 MCG PO DAILY Ergocalciferol (Vitamin D2) (Vitamin D2) 50,000 Units Cap, 50,000 UNITS PO 1XWK SUNDAYS Ezetimibe (Zetia) 10 Mg Tab, 10 MG PO DAILY Furosemide (Furosemide) 20 Mg Tab, 40 MG PO BID Hydrocodone/Acetaminophen (Hydrocodone-Acetamin 10-300 mg) 1 Tab Tab, 1 TAB PO Q6HP Insulin Glargine,Hum.rec.anlog (Lantus Solostar) 100 Unit/Ml Inj, 60 UNITS SC BID Insulin Lispro (Humalog) 100 Unit/Ml Inj, 1 DOSE SC TID sliding scale with meals L.acidoph/L.bulg/B.bif/S.therm (Elizabeth-Bid Caplet) 1 Each Tablet, 1 EA PO BIDWM Lisinopril (Lisinopril) 10 Mg Tab, 10 MG PO DAILY Lisinopril (Lisinopril) 10 Mg Tablet, 10 MG PO BID Loratadine (Claritin) 10 Mg Cap, 10 MG PO DAILY Mometasone Furoate Monohydrate (Nasonex) 120 [place]/17 Gm Naspr, 2 SPRAY NARES DAILY [place]-3/Dha/Epa/Fish Oil (Fish Oil 1,000 mg Softgel) 1 Each Capsule, 1 GM PO BID Potassium Chloride (Potassium Chloride) 8 Meq Tablet.er, 8 MEQ PO DAILY Scheduled PRN Fluticasone Propionate (Flovent Hfa) 220 Mcg/Act Aer, 2 PUFFS INH BID PRN for SHORTNESS OF BREATH Lidocaine (Lidoderm) 5% Adh..patch, 1 PATCH TD DAILY PRN for PAIN APPLY TO RIGHT KNEE Allergies Coded Allergies: phenazopyridine (Verified Allergy, Unknown, hives, 10/03/18) Sulfa (Sulfonamide Antibiotics) (Verified Adverse Reaction, Unknown, nausea/vomiting, 10/17/18) fenofibrate (Verified Adverse Reaction, Unknown, myalgia, 10/17/18) pseudoephedrine (Verified Adverse Reaction, Unknown, nausea/vomiting, 10/17/18) rosuvastatin (Verified Adverse Reaction, Unknown, myalgia, 10/17/18) A-FIB/CHADSVASC A-FIB History Current/History of A-Fib/PAF?: No Current PO Anticoag Therapy: No RICHARD WHITE MD Sep 19, 2020 23:31
[2020-09-20] VITALS (62 sets, daily range): BP systolic 127–200; BP diastolic 57–81
[2020-09-20] MEDS: PIPERACILLIN/TAZOBACTAM SOD 2.25 GM in D5W MINI-BAG PLUS 50 ML IV SCH ×5 (00:52→22:52)
[2020-09-20] MEDS: NS 1,000 ML IV SCH ×4 (00:53→20:41)
[2020-09-20] MEDS: niCARdipine IV 40 MG in IV 1 EA IV SCH ×3 (01:00→17:00)
[2020-09-20] MEDS: FLUCONAZOLE 200 MG in IV 1 EA IV SCH ×2 (02:04→23:58)
[2020-09-20] MEDS: HumaLOG INSULIN (NovoLOG) PER UNIT SC SCH ×6 (03:10→23:58)
[2020-09-20] MEDS: ONDANSETRON 4MG/2ML VIAL IV PRN ×3 (03:25→22:11)
[2020-09-20] MEDS: MORPHINE 2 MG/ML 1ML VIAL (J2270) IV PRN ×5 (03:54→22:14)
[2020-09-20 05:11] LABS: HEMATOCRIT 42.1 % (36.0-47.0); HEMOGLOBIN 13.8 g/dl (12.0-15.5); MEAN CORPUSCULAR HEMOGLOBIN 29.6 pg (27.0-33.0); MEAN CORPUSCULAR HGB CONC 32.8 g/dl (32.0-36.5); MEAN CORPUSCULAR VOLUME 90.1 fl (80.0-96.0); PLATELET COUNT, AUTOMATED 161 10^3/uL (150-450); RED BLOOD COUNT 4.67 10^6/uL (4.00-5.40); WHITE BLOOD COUNT 14.2 10^3/uL (4.0-10.0)
[2020-09-20 05:33] LABS: ALBUMIN 2.7 GM/DL (3.2-5.2); BILIRUBIN,TOTAL 0.6 MG/DL (0.2-1.0); CHOLESTEROL RISK RATIO 2.4 (<5); CREATININE FOR GFR 1.3 MG/DL (0.55-1.30); POTASSIUM SERUM 4.2 MEQ/L (3.5-5.1); TOTAL PROTEIN 6.2 GM/DL (6.4-8.2); TROPONIN I 0.1 NG/ML (< 0.10)
[2020-09-20 05:55] LABS: HEMOGLOBIN A1c 7.4 %
[2020-09-20] MEDS ORDERED: HumaLOG INSULIN (NovoLOG) PER UNIT SC SCH ×2 (07:30→21:00)
[2020-09-20] MEDS: KETOROLAC 30 MG/ML 1ML VIAL IV PRN ×2 (07:43→17:14)
--- NOTE | 2020-09-20 07:46 | RO ---
OPERATIVE NOTE DATE OF OPERATION: 09/19/2020 PREOPERATIVE DIAGNOSIS: Perforated duodenal ulcer. POSTOPERATIVE DIAGNOSIS: Perforated duodenal ulcer that is contained along with phlegmon surrounding tubing from previous Lap-Band. PROCEDURE: Robotic-assisted exploratory laparoscopy with abdominal washout, takedown of adhesions, evacuation of phlegmon along with removal of large portion of Lap-Band tubing. SURGEON: Bear Garcia DO PIE BAKER: None. ANESTHESIA: General. EBL: 15. COMPLICATIONS: None. INDICATIONS FOR PROCEDURE: The patient is a 69-year-old female with history of Lap-Band, presents with severe abdominal pain, found to have what appears to be either a contained versus open perforation of a duodenal ulcer with large phlegmon. Recommendation made to proceed with robotic washout and possible repair. Risks, benefits of the procedure not limited to but including bleeding, infection, hernia formation, damage to surrounding structures, need for further surgery discussed in detail with the patient, informed consent was obtained, procedure was planned. DESCRIPTION OF PROCEDURE: The patient was brought back to operating room 7, after sedation the patient's abdomen was sterilely prepped and draped with Chlorhexidine. Time out was done to confirm proper patient, proper procedure. Following that an 8 mm incision was made in left upper quadrant, Veress needle inserted and the abdomen was insufflated with 15 mmHg. Veress needle was removed and 8 mm Optiview port was used to gain access to the abdomen. Once the abdomen was entered there was a ventral hernia identified in upper midline as well as adhesions surrounding this area. Three more ports were placed across the abdomen horizontally just above the umbilicus. Robot was then connected to the ports and docked. From the console I was able to reduce the hernia and then dissect through the adhesions along the anterior abdominal wall. Once that was completed I was able to identify a small phlegmon with the tubing from the Lap-Band within it. Large amount of purulent fluid was drained from this area. Once I drained it out I removed about 6 cm segment of the Lap-Band tubing that was within this cavity. Once that was completed I examined the liver edge, followed the stomach back underneath the liver medially. The entire area encompassing the duodenum, pylorus, gallbladder and subhepatic space was all heavily scarred together and all contained. There were no signs of purulent fluid or gastric contents anywhere inside the abdomen. Because of that I decided to washout the rest of the abdomen and washout the cavity where this purulent fluid was. I left in a 19-[place] Shaw drain underneath this area brought out through the right lateral port site and decided to leave the rest of the scar tissue and adhesions in place for now. Once that was completed the abdomen was desufflated, ports were removed. Skin incisions were closed with 4-0 Vicryl subcuticular sutures. Drain was sutured in place with 2-0 silk. The abdomen was cleaned and dried. Steri-Strips and 4 x 4 tape applied. This ended the procedure. The patient will return to recovery room and will monitor in the hospital for the next couple of days with strict NG tube output. If she continues to have pain will repeat CT in a couple days and possibly undergo EGD as well to see if she would benefit from IR drain placement into this phlegmon versus needing reoperation. However, since her perforation appears to be well contained at this time I did not feel it was necessary to dissect any further at this time.
--- NOTE | 2020-09-20 08:45 | IPN ---
PROGRESS NOTE DATE: 09/20/2020 SUBJECTIVE: Michelle is seen in the ICU. The Hospitalist group is in consultation. The patient has a large intraabdominal abscess, had a perforated duodenal ulcer, contained along with a phlegmon surrounding tubing from previous lap band. Currently in the ICU, blood pressure has been elevated and they have been addressing this overnight. She has Type 2 diabetes which looks like it is actually under fairly good control. Hemoglobin A1c is 7.4%. She denies any chest pain or shortness of breath. She just has abdominal pain. OBJECTIVE: VITAL SIGNS: Blood pressure 167/72, pulse 81, 93% O2 saturation. HEENT: Unremarkable. LUNGS: Clear. HEART: Regular rate and rhythm. There is a 1/6 systolic ejection murmur. ABDOMEN: Tender and dressed. EXTREMITIES: There is trace peripheral edema. LABORATORY DATA: Sodium 140, potassium 4.2, BUN 35, creatinine 1.3. Glucose 224. Troponin was 0.16, repeat was 0.1. White count 14.2, down from 20.7 on admission, hemoglobin 13.8, platelets 161,000. Blood sugars are in the 200 range. IMPRESSION: 1. Intraabdominal abscess, postop day #1. Dr. Garcia is the surgeon. 2. Diabetes, continue sliding scale insulin, will do this q. 6 hours. Her blood sugar control as an outpatient is considered to be acceptable with a hemoglobin A1c of 7.4%. She is not on any basal insulin, this could be restarted once she has some p.o. intake. 3. Hyperlipidemia, patient is on Zetia as an outpatient which could be restarted on discharge. 4. History of gout, on allopurinol 300 mg daily, which could be restarted on discharge. 5. History of depression. She is on Wellbutrin SR 150 mg b.i.d. This was less likely to cause abstinence syndrome with SSRI or SNRI but would restart that as soon as possible when she is taking p.o. 6. Hypertension. This is her major medical problem at this point. He is currently on a Nicardipine drip. Will order some p.r.n. hydralazine. Goal of systolic blood pressure is less than 160. 7. Chronic kidney disease. Her GFR is at baseline, it looks like a baseline creatinine back 12/19 is around 1.5. She is currently receiving both normal saline and Lasix which is counterproductive. Will stop the Lasix. Continue the normal saline. She is also receiving Ketorolac for pain control and I would use further doses of this with caution and will need to keep a close eye on her renal function. I am increasing her Lisinopril to 10 mg b.i.d. and adding hydralazine for control of her blood pressure.
[2020-09-20] MEDS ORDERED: allopurinoL 300 MG TAB PO SCH (09:00)
[2020-09-20] MEDS ORDERED: EZETIMIBE 10 MG TAB (ZETIA) PO SCH (09:00)
[2020-09-20] MEDS ORDERED: LEVEMIR (INSULIN DETEMIR) 1 UNITS/0.01ML SC SCH (09:00)
[2020-09-20] MEDS ORDERED: LIDOCAINE 5% (LIDODERM) PATCH TD PRN (09:00)
[2020-09-20] MEDS: hydrALAZINE 20MG/ML 1ML VIAL (J0360 PER 20MG) IV SCH ×3 (09:08→20:06)
[2020-09-20] MEDS: ENOXAPARIN 40MG/0.4ML SYRINGE (J1650 PER 10MG) SC SCH (09:12)
[2020-09-20] MEDS: PANTOPRAZOLE 40MG VIAL (C9113 PER 1) IV SCH ×2 (09:12→20:41)
[2020-09-20] MEDS: FLUTICASONE PROP 0.05% NASAL SPRAY 16 GM (FLONASE) NARES SCH (09:13)
--- NOTE | 2020-09-20 11:07 | IPNPDOC ---
Text Note Date of Service The patient was seen on 09/20/20. NOTE Gen. surgery. Dr. Garcia The patient is a 69-year-old female with history of lap band procedure and history of infected subcutaneous port which was subsequently removed, presented with severe abdominal pain and signs of phlegmon next to the duodenum and the pancreas, now status post robotic exploratory laparoscopy with abdominal washout, takedown of adhesions, evacuation of phlegmon and removal of large portion of lap band tubing as per Dr. Garcia 09/19/20. This morning, the patient is resting in bed currently having echocardiogram completed. He does report some improvement in abdominal discomfort compared with yesterday but states she is still having pain in the upper part of the abdomen. NG tube is in place. Afebrile. Heart rate 78, blood pressure 174/71, 92% on room air. General. Awake and alert, no acute distress. S1-S2 regular rate and rhythm Lungs are clear to auscultation anteriorly Abdomen mildly distended but soft, tenderness is noted upper abdomen, surgical incisions C/D/I, VAMSI drain with serosanguineous drainage noted. NGT 125ml today. VAMSI drain 20o ml 09/19. White blood cell count 14.2 which is decreased from 20.7. Lipase 3298, decreased from 5612 on admission. Hgb 13.8. A/P Perforated ulcer contained along with phlegmon surrounding tubing from previous lap band, status post robotic-assisted exploratory laparoscopy with abdominal washout and evacuation of phlegmon with removal of lap band tubing as per Dr. Garcia 09/19/20. The patient is afebrile, Leukocytosis downtrending. NPO/NGT in place. IVF 125cc/hr IV Zosyn/Fluconazole. Incisions clean dry and intact. VAMSI drain in place. Monitor VS,Fishbone, I+O VS, Fishbone, I+O Laboratory Tests 09/19/20 15:39 09/19/20 16:57 09/20/20 04:51 Vital Signs Date Time Temp Pulse Resp B/P (MAP) Pulse Ox O2 Delivery O2 Flow Rate FiO2 09/20/20 10:00 77 20 94 Room Air 09/20/20 09:50 154/67 09/20/20 08:00 99.1 09/19/20 23:40 2 I&O- Last 24 Hours up to 6 AM 09/20/20 06:00 Intake Total 4241 ml Output Total 1170 ml Balance 3071 ml Dunia Baker Sep 20, 2020 11:07
[2020-09-20] MEDS: buPROPion **SR TABLET** (ZYBAN) 150MG PO SCH ×2 (11:20→20:07)
--- NOTE | 2020-09-20 19:18 | ECGEPIP ---
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
[2020-09-20] MEDS: **NOTE PATIENT COMMENT** MISC XX SCH (21:24)
[2020-09-21] VITALS (29 sets, daily range): BP systolic 120–204; BP diastolic 56–80
[2020-09-21] MEDS: niCARdipine IV 40 MG in IV 1 EA IV SCH ×2 (00:59→09:00)
[2020-09-21] MEDS: hydrALAZINE 20MG/ML 1ML VIAL (J0360 PER 20MG) IV SCH ×4 (02:13→20:39)
[2020-09-21 04:25] LABS: HEMATOCRIT 38.7 % (36.0-47.0); HEMOGLOBIN 12.8 g/dl (12.0-15.5); MEAN CORPUSCULAR HEMOGLOBIN 29.9 pg (27.0-33.0); MEAN CORPUSCULAR HGB CONC 33.1 g/dl (32.0-36.5); MEAN CORPUSCULAR VOLUME 90.4 fl (80.0-96.0); PLATELET COUNT, AUTOMATED 140 10^3/uL (150-450); RED BLOOD COUNT 4.28 10^6/uL (4.00-5.40)
[2020-09-21 04:53] LABS: ALBUMIN 2.4 GM/DL (3.2-5.2); BILIRUBIN,TOTAL 0.7 MG/DL (0.2-1.0); CALCIUM LEVEL 7.8 MG/DL (8.8-10.2); CREATININE FOR GFR 1.17 MG/DL (0.55-1.30); GLOMERULAR FILTRATION RATE 48.5 (>39); MAGNESIUM LEVEL 2.2 MG/DL (1.8-2.4); POTASSIUM SERUM 3.7 MEQ/L (3.5-5.1); TOTAL PROTEIN 5.4 GM/DL (6.4-8.2)
[2020-09-21] MEDS: MORPHINE 2 MG/ML 1ML VIAL (J2270) IV PRN ×4 (05:07→20:39)
[2020-09-21] MEDS: PIPERACILLIN/TAZOBACTAM SOD 2.25 GM in D5W MINI-BAG PLUS 50 ML IV SCH ×4 (05:38→23:11)
[2020-09-21] MEDS: HumaLOG INSULIN (NovoLOG) PER UNIT SC SCH ×3 (05:46→17:50)
[2020-09-21] MEDS: NS 1,000 ML IV SCH (07:18)
[2020-09-21 07:40] LABS: C REACTIVE PROTEIN QUANTITATIV 27.7 MG/DL (0.00-0.30)
[2020-09-21] MEDS: KETOROLAC 30 MG/ML 1ML VIAL IV PRN ×2 (07:42→18:08)
[2020-09-21] MEDS: buPROPion **SR TABLET** (ZYBAN) 150MG PO SCH ×2 (09:00→20:40)
[2020-09-21 09:18] LABS: C REACTIVE PROTEIN QUANTITATIV 4.82 MG/DL (0.00-0.30)
[2020-09-21] MEDS: FLUTICASONE PROP 0.05% NASAL SPRAY 16 GM (FLONASE) NARES SCH (09:26)
[2020-09-21] MEDS: PANTOPRAZOLE 40MG VIAL (C9113 PER 1) IV SCH ×2 (09:26→20:40)
[2020-09-21] MEDS: ENOXAPARIN 40MG/0.4ML SYRINGE (J1650 PER 10MG) SC SCH (09:27)
[2020-09-21] MEDS: GASTROGRAFIN SOLUTION 30ML PO SCH ×2 (10:49→11:29)
--- NOTE | 2020-09-21 11:12 | ECHO ---
DATE OF PROCEDURE: 09/20/2020 Age: 69 Gender: Female Height: 155 cm Weight: 94 kg REFERRING PHYSICIAN: Nicole Ochoa MD. INDICATION: Sepsis. MEASUREMENTS: IVS 1.3 cm LV 3.8 cm LVPW 1.3 cm LA 3.8 cm Aorta 2.6 cm RV 3.1 cm IVC 1.0 cm Mitral E wave velocity 84 A wave 115 E prime septal 6.0 E prime lateral 7.4 FINDINGS: This study is of rather poor technical quality. Patient is in sinus rhythm with wide QRS complex. Left ventricle is normal size and overall probably has normal contractility based on very limited views. I cannot estimate the actual ejection fraction, but it is probably going to be normal or near normal. Right ventricle appears to have normal size. Both atria appear normal. Aortic valve was poorly visualized, but based on limited views, I do not appreciate any obvious abnormalities. Same applies for mitral and tricuspid valve. Pulmonic valve appears normal. No pericardial effusion is noted. Inferior vena cava is of normal size. Aortic root is normal. Aortic arch and abdominal aorta were not well seen. Doppler interrogation reveals no significant aortic disease. There is trace mitral and tricuspid insufficiency. Unfortunately quality of TR jet was not sufficient to estimate pulmonary artery pressure. Mitral inflow pattern and tissue Doppler imaging of mitral annulus revealed grade 1 diastolic dysfunction. CONCLUSIONS: 1. Study is of rather limited technical quality, underlying sinus rhythm with wide QRS complex. 2. Normal LV size with mild LVH and overall likely normal LV systolic function. Grade 1 diastolic dysfunction. 3. No significant valvular disease. 4. Likely normal or possibly even low central venous pressure. Unable to estimate pulmonary artery pressure. MTDD
[2020-09-21] MEDS ORDERED: LABETALOL 100MG/20ML VIAL IV STA (11:16)
--- NOTE | 2020-09-21 12:07 | IPNPDOC ---
Text Note Date of Service The patient was seen on 09/21/20. NOTE Subjective: Patient is a 69-year-old female with a PMHx of Gastric bypass (8 years ago; s/p Revision to remove infected port 8 months ago), who presented to the emergency room with complaints of vomiting blood and 10 out of 10 in severity, sharp, consistent abdominal pain. There is a suspicion of a perforated duodenal ulcer and patient underwent exploratory robotic laparoscopy and was found to have an intra-abdominal abscess surrounding her lap band procedure. Postoperatively, patient was found to have significantly elevated blood pressure and hospitalist service was consulted for assistance in the management of her BP. Patient was seen and examined at the bedside. Patient denies any nausea or vomiting. He has an NG tube that is still in place. Denies any chest pain, shortness breath or palpitations. Reports some abdominal discomfort. Has not had any bowel movements. Has a Leon catheter in place. Objective: Vitals (See below) General: Lying in bed, appears comfortable, AAOx3 HEENT: NC, AT CVS: +S1S2 Lungs: Fair air entry b/l, mild crackles appreciated at bases Abdomen: Soft, ND, tenderness appreciated epigastrium. Hypoactive bowel sounds Extremities: - Edema, - Calf tenderness Imaging: CT abdomen / pelvis 09/19: There is a large phlegmon measuring approximately 5.7 cm in diameter medial to the descending duodenum and inferior to the pancreatic head containing opacified bowel content and a few tiny air bubbles. This may represent duodenal perforation, possibly perforation of a duodenal ulcer. There is no pneumoperitoneum otherwise. There is a small volume of free fluid surrounding the lateral margin of the liver. The stomach is distended with fluid with and containing a large fluid level. There findings concerning the lap band as discussed in detail above. The reservoir is no longer identified. The proximal tip of the catheter is intraperitoneal along the lateral abdominal wall. There is a fat containing hernia through the original lap band ostomy site. There are a few dilated small bowel loops, possibly focal ileus. No evidence of bowel obstruction. There is a tiny air bubble long the anterior wall of the bladder, possibly from recent catheterization. CXR 09/19: No acute findings. Assessment and plan: Intra-abdominal abscess - Currently patient still reported some epigastric tenderness - Patient is hemodynamically stable and afebrile - Leukocytosis and CRPs have worsened today - s/p drainage (POD#2) - c/w Fluconazole / Zosyn - Currently being managed by primary surgical team HTN - BP remains elevated - s/p Nicardipine drip - c/w Hydralazine and Lisinopril - Will start Labetalol - Will stop IV fluids DM2 - c/w ISS DLP - Zetia on hold (re: NPO) Gout - Allopurinol on hold Depression - c/w Bupropion CKD3 - Renal function is currently better than baseline - Will avoid nephrotoxic medications; will stop Ketorolac - Lasix was discontinued initially - Will stop IV fluids Chronic back pain - c/w Lidocaine patch GI prophylaxis - c/w Protonix DVT prophylaxis - c/w Lovenox Disposition: - Awaiting clinical improvement Griselda LUZ I+O Griselda LUZ I+O Laboratory Tests 09/21/20 04:13 Vital Signs Date Time Temp Pulse Resp B/P (MAP) Pulse Ox O2 Delivery O2 Flow Rate FiO2 09/21/20 11:31 175/74 09/21/20 06:00 97 18 Room Air 09/21/20 04:00 98.8 09/21/20 00:00 97 09/19/20 23:40 2 I&O- Last 24 Hours up to 6 AM 09/21/20 06:00 Intake Total 3070 ml Output Total 2875 ml Balance 195 ml KALPANA GUO MD Sep 21, 2020 12:07
[2020-09-21] MEDS ORDERED: ISOVUE-370 76% 100ML VIAL As Ordered ONE (12:46)
--- NOTE | 2020-09-21 13:24 | IPNPDOC ---
Text Note Date of Service The patient was seen on 09/21/20. NOTE No acute events overnight. She is still in the same pain. NG output has decre ased and no changes to the drain output. She is no longer requiring IF drip for her HTN. VSSAF NAD abd - soft, distended, slight tenderness epigastric only, no rebound or guarding labs - below A) 69y/o female s/p RA abd washout with evacuation of an abscess and portion of her lap band tubing. P) NGT to LIS IVF abx ambulate d/c albrecht repeat CT encourage IS Mykel Garcia DO VS,Jasonbone, I+O VS, Jonge, I+O Laboratory Tests 09/21/20 04:13 Vital Signs Date Time Temp Pulse Resp B/P (MAP) Pulse Ox O2 Delivery O2 Flow Rate FiO2 09/21/20 11:31 175/74 09/21/20 06:00 97 18 Room Air 09/21/20 04:00 98.8 09/21/20 00:00 97 09/19/20 23:40 2 I&O- Last 24 Hours up to 6 AM 09/21/20 06:00 Intake Total 3070 ml Output Total 2875 ml Balance 195 ml LOGAN GARCIA DO Sep 21, 2020 13:24
--- NOTE | 2020-09-21 14:30 | REP ---
INDICATION: evaluate for duodenal obstruction vs. perforation. COMPARISON: Abdomen and pelvis CT dated 09/19/[address] dated 12/26/2019. TECHNIQUE: Abdomen pelvis CT with IV and bowel contrast. FINDINGS: There has been interim placement of an upper abdominal drainage 2 lateral to the liver and extending along the anterior peritoneal wall. The known lap band and tubing are again identified unchanged from the previous study. Additionally, there is now a nasogastric tube with the tip in the stomach in satisfactory position. The large amount of fluid noted in the stomach previously is no longer present. There is now intraluminal contrast in the stomach and the stomach is relatively collapsed. Intraluminal contrast scan be seen in the duodenal loop. There is significant wall thickening of the 2nd 3rd and 4th portions of the duodenal loop compatible with inflammation. There is phlegmon medial to the duodenal loop interposed between the loop and pancreatic head. There is opaque material within the area of phlegmon suggestive of duodenal perforation, possibly micro perforation. No focal fluid collection is identified to suggest abscess. Intraluminal bowel contrast can be seen within the duodenal loop although the lumen is narrowed as a consequence of wall thickening, however, the contrast passes through the duodenal loop into small bowel loops indicating there is no duodenal obstruction. There is no pneumoperitoneum. The ascites identified lateral to the liver previously is decreased in volume likely a consequence of the drainage tube There is no small bowel or large bowel distention to suggest obstruction. The visualized lung dawson not demonstrate small bilateral pleural effusions versus pleural thickening as an interval change. The liver, gallbladder, pancreas and spleen are unchanged. The adrenals, kidneys and abdominal aorta are unchanged. Pelvis: The min the bladder appears to have decreased urine volume. There again is an air bubble anteriorly in the bladder, possibly from catheterization. There is a small volume of ascites in the pelvis that was not present previously. IMPRESSION: Phlegmon is again identified interposed between the duodenal loop and pancreas. I suspect there is a small volume of bowel contrast within the phlegmon suggestive of perforation or microperforation. There is no fluid collection within the phlegmon to suggest abscess. There is marked wall thickening of the entire duodenal loop with consequent luminal narrowing. However, the bowel contrast can be seen traversing the duodenum into more distal small bowel loops indicating there is no duodenal obstruction. There is a nasogastric tube and upper abdominal surgical drainage tube as changes from the prior study of 09/19/2020. There is no change in the lap band from the prior study. <Electronically signed by Bear Leach > 09/21/20 [id number]
[2020-09-21] MEDS ORDERED: LIDOCAINE 1% MDV 20ML VIAL As Ordered ONE (15:34)
[2020-09-21] MEDS: ONDANSETRON 4MG/2ML VIAL IV PRN (16:46)
[2020-09-21] MEDS ORDERED: SODIUM CHLORIDE 0.9% INJ 10 ML SYR IV PRN (17:55)
[2020-09-21] MEDS ORDERED: AMINO AC/ELECTROLYTE/DEX/CALC 2,000 ML IV SCH (18:00)
[2020-09-21] MEDS ORDERED: FAT EMULSION IV 20% 500 ML IV SCH (18:00)
[2020-09-21] MEDS: SODIUM CHLORIDE 0.9% INJ 10 ML SYR IV SCH (18:08)
--- NOTE | 2020-09-21 18:13 | REP ---
INDICATION: TPN. COMPARISON: None. TECHNIQUE: The procedure was performed under the direct supervision of Dr. Morin. The risks and benefits of the procedure were explained to the patient and informed consent was obtained. The left basilic vein was localized using ultrasound guidance. The skin was prepped and draped in a sterile fashion. 2% lidocaine was used as a local anesthetic. Using ultrasound guidance the basilic vein was cannulated and a 0.018 guidewire was inserted and advanced to the SVC using fluoroscopic guidance. The needle was removed and a 4.5 Cypriot dilator and peel-away sheath was inserted over the guide wire. A 4.5 Cypriot dual lumen catheter was cut to length of 46 cm. The dilator was removed and the catheter was inserted over the guide wire with the tip ending in the SVC. The peel-away sheath was removed and the catheter was flushed with heparinized saline as per Hospital protocol. The catheter was affixed to the skin and a sterile dressing was applied. The patient tolerated the procedure well and there were no immediate complications. 0.4 minutes of fluoro time was utilized for this procedure. FINDINGS: None IMPRESSION: PICC line insertion left basilic vein with the tip ending in the SVC. <Electronically signed by Yousif Cooper > 09/21/20 [id number] <Electronically signed by Bear Morin > 09/21/20 1815
[2020-09-21] MEDS: LABETALOL 100MG/20ML VIAL IV SCH (20:38)
[2020-09-21] MEDS: **NOTE PATIENT COMMENT** MISC XX SCH (21:19)
[2020-09-22] VITALS (13 sets, daily range): BP systolic 124–187; BP diastolic 56–84
[2020-09-22] MEDS: HumaLOG INSULIN (NovoLOG) PER UNIT SC SCH ×4 (00:01→18:23)
[2020-09-22] MEDS: FLUCONAZOLE 200 MG in IV 1 EA IV SCH (00:01)
[2020-09-22] MEDS: hydrALAZINE 20MG/ML 1ML VIAL (J0360 PER 20MG) IV SCH ×4 (01:13→21:34)
[2020-09-22] MEDS: MORPHINE 2 MG/ML 1ML VIAL (J2270) IV PRN ×3 (01:13→16:58)
[2020-09-22] MEDS: PIPERACILLIN/TAZOBACTAM SOD 2.25 GM in D5W MINI-BAG PLUS 50 ML IV SCH ×4 (05:04→22:36)
[2020-09-22 05:31] LABS: HEMATOCRIT 36.8 % (36.0-47.0); HEMOGLOBIN 11.9 g/dl (12.0-15.5); MEAN CORPUSCULAR HGB CONC 32.3 g/dl (32.0-36.5); MEAN CORPUSCULAR VOLUME 92.7 fl (80.0-96.0); PLATELET COUNT, AUTOMATED 161 10^3/uL (150-450); RED BLOOD COUNT 3.97 10^6/uL (4.00-5.40); WHITE BLOOD COUNT 17.3 10^3/uL (4.0-10.0)
[2020-09-22] MEDS: SODIUM CHLORIDE 0.9% INJ 10 ML SYR IV SCH ×2 (06:00→18:49)
[2020-09-22 06:03] LABS: ALBUMIN 2.1 GM/DL (3.2-5.2); BILIRUBIN,TOTAL 0.5 MG/DL (0.2-1.0); CALCIUM LEVEL 8.1 MG/DL (8.8-10.2); CREATININE FOR GFR 1.2 MG/DL (0.55-1.30); GLOMERULAR FILTRATION RATE 47.1 (>39); MAGNESIUM LEVEL 2.5 MG/DL (1.8-2.4); POTASSIUM SERUM 3.6 MEQ/L (3.5-5.1); TOTAL PROTEIN 6.1 GM/DL (6.4-8.2)
[2020-09-22] MEDS: KETOROLAC 30 MG/ML 1ML VIAL IV PRN ×2 (06:08→21:32)
[2020-09-22 08:36] LABS: C REACTIVE PROTEIN QUANTITATIV 17.2 MG/DL (0.00-0.30)
[2020-09-22] MEDS: buPROPion **SR TABLET** (ZYBAN) 150MG PO SCH ×2 (08:39→21:45)
[2020-09-22] MEDS: PANTOPRAZOLE 40MG VIAL (C9113 PER 1) IV SCH ×2 (08:48→21:31)
[2020-09-22] MEDS: ENOXAPARIN 40MG/0.4ML SYRINGE (J1650 PER 10MG) SC SCH (08:49)
[2020-09-22] MEDS: FLUTICASONE PROP 0.05% NASAL SPRAY 16 GM (FLONASE) NARES SCH (09:10)
--- NOTE | 2020-09-22 10:00 | IPNPDOC ---
Text Note Date of Service The patient was seen on 09/22/20. NOTE Subjective: Patient is a 69-year-old female with a PMHx of Gastric bypass (8 years ago; s/p Revision to remove infected port 8 months ago), who presented to the emergency room with complaints of vomiting blood and 10 out of 10 in severity, sharp, consistent abdominal pain. There is a suspicion of a perforated duodenal ulcer and patient underwent exploratory robotic laparoscopy and was found to have an intra-abdominal abscess surrounding her lap band procedure. Postoperatively, patient was found to have significantly elevated blood pressure and hospitalist service was consulted for assistance in the management of her BP. Patient was seen and examined at the bedside. Patient reports that her abdominal pain better. NG tube is still in place. Denies any chest pain, shortness breath, palpitations, has not passed gas or had any bowel movements. Leon catheter is in place. Objective: Vitals (See below) General: Lying in bed, appears comfortable, AAOx3 HEENT: NC, AT CVS: +S1S2 Lungs: Fair air entry b/l, faint crackles appreciated at bases Abdomen: Abdomen remains soft, no distention, tenderness epigastrium is still appreciated. Bowel sounds are had some improvement this morning Extremities: Lower extremities do not reveal any significant pitting edema Imaging: CT abdomen / pelvis 09/19: There is a large phlegmon measuring approximately 5.7 cm in diameter medial to the descending duodenum and inferior to the pancreatic head containing opacified bowel content and a few tiny air bubbles. This may represent duodenal perforation, possibly perforation of a duodenal ulcer. There is no pneumoperitoneum otherwise. There is a small volume of free fluid surrounding the lateral margin of the liver. The stomach is distended with fluid with and containing a large fluid level. There findings concerning the lap band as discussed in detail above. The reservoir is no longer identified. The proximal tip of the catheter is intraperitoneal along the lateral abdominal wall. There is a fat containing hernia through the original lap band ostomy site. There are a few dilated small bowel loops, possibly focal ileus. No evidence of bowel obstruction. There is a tiny air bubble long the anterior wall of the bladder, possibly from recent catheterization. CXR 09/19: No acute findings. Assessment and plan: Intra-abdominal abscess - Currently patient still reported some epigastric tenderness - Patient is hemodynamically stable and afebrile - Leukocytosis and CRPs trending down - s/p drainage (POD#3) - c/w Fluconazole / Zosyn - c/w Adjusted pain medications - Currently being managed by primary surgical team HTN - possibly some component 2/2 pain - BP remains elevated; however improved - s/p Nicardipine drip - c/w Hydralazine, Labetalol and Lisinopril - c/w adjusted pain control medications - s/p IV fluids DM2 - c/w ISS DLP - Zetia on hold (re: NPO) Gout - Allopurinol on hold Depression - c/w Bupropion CKD3 - Renal function is currently better than baseline - Baseline of 1.2-1.3 - Will avoid nephrotoxic medications - Lasix was discontinued initially - s/p IV fluids Chronic back pain - c/w Lidocaine patch GI prophylaxis - c/w Protonix DVT prophylaxis - c/w Lovenox Disposition: - Awaiting clinical improvement - Downgrade to PCU VS,Griselda, I+O VS, Jonge, I+O Laboratory Tests 09/22/20 05:05 Vital Signs Date Time Temp Pulse Resp B/P (MAP) Pulse Ox O2 Delivery O2 Flow Rate FiO2 09/22/20 09:00 81 170/81 (110) 09/22/20 08:59 18 09/22/20 08:00 98.7 96 Room Air 09/19/20 23:40 2 I&O- Last 24 Hours up to 6 AM 09/22/20 05:59 Intake Total 2565 ml Output Total 2530 ml Balance 35 ml KALPANA GUO MD Sep 22, 2020 10:00
[2020-09-22] MEDS: LABETALOL 100MG/20ML VIAL IV SCH ×2 (10:53→22:37)
[2020-09-22] MEDS: LEVEMIR (INSULIN DETEMIR) 1 UNITS/0.01ML SC SCH ×2 (13:58→21:34)
[2020-09-22] MEDS ORDERED: FAT EMULSION IV 20% 500 ML IV SCH (18:00)
[2020-09-22] MEDS ORDERED: AMINO AC/ELECTROLYTE/DEX/CALC 2,000 ML IV SCH (18:00)
[2020-09-22] MEDS: **NOTE PATIENT COMMENT** MISC XX SCH (21:35)
--- NOTE | 2020-09-22 21:49 | IPNPDOC ---
Text Note Date of Service The patient was seen on 09/22/20. NOTE No acute events overnight. Pain is slightly improved. NG output has decreased and no changes to the drain output. She has good urine output and is up ambulating. VSSAF NAD abd - soft, distended, slight tenderness epigastric only, no rebound or guarding, drain is serosanguinous labs - below A) 69y/o female s/p RA abd washout with evacuation of an abscess and portion of her lap band tubing. infected lap band P) NGT to LIS IVF abx ambulate TPN encourage IS Mykel Garcia DO VS,Fishbone, I+O VS, Fishbone, I+O Laboratory Tests 09/22/20 05:05 Vital Signs Date Time Temp Pulse Resp B/P (MAP) Pulse Ox O2 Delivery O2 Flow Rate FiO2 09/22/20 17:08 18 09/22/20 16:58 Room Air 09/22/20 16:13 124/84 (97) 09/22/20 16:08 97.5 81 95 09/19/20 23:40 2 I&O- Last 24 Hours up to 6 AM 09/22/20 06:00 Intake Total 2325 ml Output Total 2060 ml Balance 265 ml LOGAN GARCIA DO Sep 22, 2020 21:49
[2020-09-23] VITALS (7 sets, daily range): BP systolic 144–192; BP diastolic 72–98
[2020-09-23] MEDS: FLUCONAZOLE 200 MG in IV 1 EA IV SCH (00:11)
[2020-09-23] MEDS: HumaLOG INSULIN (NovoLOG) PER UNIT SC SCH ×4 (00:11→18:29)
[2020-09-23] MEDS: hydrALAZINE 20MG/ML 1ML VIAL (J0360 PER 20MG) IV SCH ×4 (02:55→21:16)
[2020-09-23] MEDS: PIPERACILLIN/TAZOBACTAM SOD 2.25 GM in D5W MINI-BAG PLUS 50 ML IV SCH ×4 (05:42→23:13)
[2020-09-23] MEDS: SODIUM CHLORIDE 0.9% INJ 10 ML SYR IV SCH ×2 (05:42→17:39)
[2020-09-23] MEDS: MORPHINE 2 MG/ML 1ML VIAL (J2270) IV PRN ×3 (05:52→17:40)
[2020-09-23 05:57] LABS: HEMATOCRIT 36.8 % (36.0-47.0); HEMOGLOBIN 12.1 g/dl (12.0-15.5); MEAN CORPUSCULAR HEMOGLOBIN 29.7 pg (27.0-33.0); MEAN CORPUSCULAR HGB CONC 32.9 g/dl (32.0-36.5); MEAN CORPUSCULAR VOLUME 90.4 fl (80.0-96.0); PLATELET COUNT, AUTOMATED 157 10^3/uL (150-450); RED BLOOD COUNT 4.07 10^6/uL (4.00-5.40); WHITE BLOOD COUNT 13.1 10^3/uL (4.0-10.0)
[2020-09-23 06:20] LABS: ALBUMIN 2.1 GM/DL (3.2-5.2); ALT/SGPT 30 U/L (12-78); BILIRUBIN,TOTAL 0.8 MG/DL (0.2-1.0); BLOOD UREA NITROGEN 29 MG/DL (7-18); CALCIUM LEVEL 8.1 MG/DL (8.8-10.2); CARBON DIOXIDE LEVEL 28 MEQ/L (21-32); CHLORIDE LEVEL 107 MEQ/L (98-107); CREATININE FOR GFR 0.97 MG/DL (0.55-1.30); GLOMERULAR FILTRATION RATE > 60.0 (>39); GLUCOSE, FASTING 356 MG/DL (70-100); MAGNESIUM LEVEL 2.4 MG/DL (1.8-2.4); POTASSIUM SERUM 3.8 MEQ/L (3.5-5.1); SODIUM LEVEL 141 MEQ/L (136-145); TOTAL PROTEIN 5.4 GM/DL (6.4-8.2)
[2020-09-23] MEDS ORDERED: FUROSEMIDE 40MG/4ML VIAL (J1940) IV ONE (08:55)
[2020-09-23] MEDS: buPROPion **SR TABLET** (ZYBAN) 150MG PO SCH ×2 (09:00→21:00)
--- NOTE | 2020-09-23 09:05 | IPNPDOC ---
Text Note Date of Service The patient was seen on 09/23/20. NOTE Subjective: Patient is a 69-year-old female with a PMHx of Gastric bypass (8 years ago; s/p Revision to remove infected port 8 months ago), who presented to the emergency room with complaints of vomiting blood and 10 out of 10 in severity, sharp, consistent abdominal pain. There is a suspicion of a perforated duodenal ulcer and patient underwent exploratory robotic laparoscopy and was found to have an intra-abdominal abscess surrounding her lap band procedure. Postoperatively, patient was found to have significantly elevated blood pressure and hospitalist service was consulted for assistance in the management of her BP. Patient was seen and examined at the bedside. Currently patient reports that her abdominal pain is doing better. Denies any nausea, vomiting. Has not had any bowel movements. Leon catheter is been discontinued. Patient denies any chest pain, shortness breath or palpitations. Does report that her hands and legs are puffy. Objective: Vitals (See below) General: Patient is laying in bed, appears to be comfortable without any acute distress, is awake, alert and oriented 3 HEENT: NC, AT CVS: +S1S2 Lungs: There appears to be fair air entry bilaterally, mild crackles at bases Abdomen: Abdomen remains soft, nondistended with some tenderness around the epigastrium is still appreciated, however, significantly improved compared to yesterday Extremities: Trace lower extremity edema Imaging: CT abdomen / pelvis 09/19: There is a large phlegmon measuring approximately 5.7 cm in diameter medial to the descending duodenum and inferior to the pancreatic head containing opacified bowel content and a few tiny air bubbles. This may represent duodenal perforation, possibly perforation of a duodenal ulcer. There is no pneumoperitoneum otherwise. There is a small volume of free fluid surrounding the lateral margin of the liver. The stomach is distended with fluid with and containing a large fluid level. There findings concerning the lap band as discussed in detail above. The reservoir is no longer identified. The proximal tip of the catheter is intr aperitoneal along the lateral abdominal wall. There is a fat containing hernia through the original lap band ostomy site. There are a few dilated small bowel loops, possibly focal ileus. No evidence of bowel obstruction. There is a tiny air bubble long the anterior wall of the bladder, possibly from recent catheterization. CXR 09/19: No acute findings. CT Abdomen / pelvis 09/21: Phlegmon is again identified interposed between the duodenal loop and pancreas. I suspect there is a small volume of bowel contrast within the phlegmon suggestive of perforation or microperforation. There is no fluid collection within the phlegmon to suggest abscess. There is marked wall thickening of the entire duodenal loop with consequent luminal narrowing. However, the bowel contrast can be seen traversing the duodenum into more distal small bowel loops indicating there is no duodenal obstruction. There is a nasogastric tube and upper abdominal surgical drainage tube as changes from the prior study of 09/19/2020.There is no change in the lap band from the prior study. Assessment and plan: Intra-abdominal abscess - Improvement in epigastric tenderness noted - Patient is hemodynamically stable and afebrile - Leukocytosis continues to improve - Imaging noted above - s/p drainage (POD#4) - c/w Fluconazole / Zosyn - c/w Adjusted pain medications - Currently being managed by primary surgical team HTN - possibly some component 2/2 pain - BP has improved significantly over the last 24 hours - s/p Nicardipine drip - c/w Hydralazine, Labetalol and Lisinopril - c/w adjusted pain control medications - s/p IV fluids - Will give Furosemide 40 IV x 1 dose DM2 - c/w ISS DLP - Zetia on hold (re: NPO) Gout - Allopurinol on hold Depression - c/w Bupropion CKD3 - Renal function still remains better than baseline - Baseline of 1.2-1.3 - Will avoid nephrotoxic medications - s/p IV fluids Chronic back pain - c/w Lidocaine patch GI prophylaxis - c/w Protonix DVT prophylaxis - c/w Lovenox Disposition: - Awaiting clinical improvement; anticipate prolonged antibiotic course VS,Fishbone, I+O VS, Fishbone, I+O Laboratory Tests 09/23/20 05:19 Vital Signs Date Time Temp Pulse Resp B/P (MAP) Pulse Ox O2 Delivery O2 Flow Rate FiO2 09/23/20 07:14 97.3 75 20 178/72 (107) 94 Room Air 09/19/20 23:40 2 I&O- Last 24 Hours up to 6 AM 09/23/20 06:00 Intake Total 4430 ml Output Total 4695 ml Balance -265 ml KALPANA GUO MD Sep 23, 2020 09:05
[2020-09-23] MEDS: PANTOPRAZOLE 40MG VIAL (C9113 PER 1) IV SCH ×2 (09:30→23:13)
[2020-09-23] MEDS: LEVEMIR (INSULIN DETEMIR) 1 UNITS/0.01ML SC SCH ×2 (09:30→23:14)
[2020-09-23] MEDS: LABETALOL 100MG/20ML VIAL IV SCH ×2 (09:31→23:15)
[2020-09-23] MEDS: ENOXAPARIN 40MG/0.4ML SYRINGE (J1650 PER 10MG) SC SCH (09:32)
[2020-09-23] MEDS: FLUTICASONE PROP 0.05% NASAL SPRAY 16 GM (FLONASE) NARES SCH (09:32)
--- NOTE | 2020-09-23 12:14 | IPNPDOC ---
Text Note Date of Service The patient was seen on 09/23/20. NOTE General Surgery Dr Garcia The pt is sitting on EOB, reports some improvement in her pain. NG output 700ml clear liquid (she is having ice and water), and alicia drain 120ml. She has good urine output and is up ambulating in the room. VSSAF NAD NGT in place abd soft, still distended, still some TTP epigastric and left upper abdomen, no rebound or guarding, alicia drain is serosanguinous WBC 13.1, decreased Hgb 12.1 A/P 69y/o female s/p RA abd washout with evacuation of an abscess and portion of her lap band tubing. infected lap band. The pt is reviewed and examined as per Dr Garcia. Continue NGT to LIS Continue IVF Continue abx Encourage ambulation Continue TPN encourage IS Monitor VS,Fishbone, I+O VS, Fishbone, I+O Laboratory Tests 09/23/20 05:19 Vital Signs Date Time Temp Pulse Resp B/P (MAP) Pulse Ox O2 Delivery O2 Flow Rate FiO2 09/23/20 11:59 18 Room Air 09/23/20 11:36 96.9 73 148/98 (115) 96 09/19/20 23:40 2 I&O- Last 24 Hours up to 6 AM 09/23/20 06:00 Intake Total 4430 ml Output Total 4695 ml Balance -265 ml Dunia Baker Sep 23, 2020 12:14
[2020-09-23] MEDS ORDERED: LABETALOL 100MG/20ML VIAL IV STA (17:14)
[2020-09-23] MEDS ORDERED: FAT EMULSION IV 20% 500 ML IV SCH (18:00)
[2020-09-23] MEDS ORDERED: AMINO AC/ELECTROLYTE/DEX/CALC 2,000 ML IV SCH (18:00)
[2020-09-23] MEDS: **NOTE PATIENT COMMENT** MISC XX SCH (21:00)
[2020-09-23] MEDS: KETOROLAC 30 MG/ML 1ML VIAL IV PRN (21:16)
[2020-09-24] VITALS: BP 158/70
[2020-09-24] MEDS: FLUCONAZOLE 200 MG in IV 1 EA IV SCH (00:32)
[2020-09-24] MEDS: HumaLOG INSULIN (NovoLOG) PER UNIT SC SCH ×4 (00:33→18:34)
[2020-09-24] MEDS: hydrALAZINE 20MG/ML 1ML VIAL (J0360 PER 20MG) IV SCH ×4 (02:00→20:34)
[2020-09-24 04:00] VITALS: BP 165/90
[2020-09-24] MEDS: PIPERACILLIN/TAZOBACTAM SOD 2.25 GM in D5W MINI-BAG PLUS 50 ML IV SCH ×4 (04:43→22:39)
[2020-09-24] MEDS: MORPHINE 2 MG/ML 1ML VIAL (J2270) IV PRN ×3 (04:43→20:36)
[2020-09-24 05:28] LABS: HEMOGLOBIN 11.9 g/dl (12.0-15.5); MEAN CORPUSCULAR HEMOGLOBIN 29.6 pg (27.0-33.0); MEAN CORPUSCULAR HGB CONC 33.1 g/dl (32.0-36.5); MEAN CORPUSCULAR VOLUME 89.6 fl (80.0-96.0); PLATELET COUNT, AUTOMATED 152 10^3/uL (150-450); RED BLOOD COUNT 4.02 10^6/uL (4.00-5.40); WHITE BLOOD COUNT 9.9 10^3/uL (4.0-10.0)
[2020-09-24 05:50] LABS: ALBUMIN 2.1 GM/DL (3.2-5.2); CALCIUM LEVEL 7.9 MG/DL (8.8-10.2); CREATININE FOR GFR 1.05 MG/DL (0.55-1.30); MAGNESIUM LEVEL 2.1 MG/DL (1.8-2.4); POTASSIUM SERUM 3.3 MEQ/L (3.5-5.1); TOTAL PROTEIN 5.3 GM/DL (6.4-8.2)
[2020-09-24] MEDS: SODIUM CHLORIDE 0.9% INJ 10 ML SYR IV SCH ×2 (06:20→18:35)
[2020-09-24] MEDS ORDERED: FUROSEMIDE 40MG/4ML VIAL (J1940) IV ONE ×2 (07:00→17:45)
[2020-09-24 08:00] VITALS: BP 190/90
[2020-09-24] MEDS: KCL 20MEQ IN 100ML SWI (KRUN) 20 MEQ in IV 1 EA IV SCH ×4 (08:38→11:19)
[2020-09-24] MEDS: buPROPion **SR TABLET** (ZYBAN) 150MG PO SCH ×2 (08:39→20:37)
[2020-09-24] MEDS: LEVEMIR (INSULIN DETEMIR) 1 UNITS/0.01ML SC SCH ×2 (08:40→20:34)
[2020-09-24] MEDS: PANTOPRAZOLE 40MG VIAL (C9113 PER 1) IV SCH ×2 (08:40→20:35)
[2020-09-24] MEDS: ENOXAPARIN 40MG/0.4ML SYRINGE (J1650 PER 10MG) SC SCH (08:40)
[2020-09-24] MEDS: FLUTICASONE PROP 0.05% NASAL SPRAY 16 GM (FLONASE) NARES SCH (08:41)
[2020-09-24] MEDS: LABETALOL 100MG/20ML VIAL IV SCH ×2 (08:41→20:35)
--- NOTE | 2020-09-24 10:03 | IPNPDOC ---
Text Note Date of Service The patient was seen on 09/24/20. NOTE Subjective: Patient is a 69-year-old female with a PMHx of Gastric bypass (8 years ago; s/p Revision to remove infected port 8 months ago), who presented to the emergency room with complaints of vomiting blood and 10 out of 10 in severity, sharp, consistent abdominal pain. There is a suspicion of a perforated duodenal ulcer and patient underwent exploratory robotic laparoscopy and was found to have an intra-abdominal abscess surrounding her lap band procedure. Postoperatively, patient was found to have significantly elevated blood pressure and hospitalist service was consulted for assistance in the management of her BP. Patient was seen and examined at the bedside. She is laying in bed, appears to be comfortable, denies any nausea, vomiting, reports some abdominal discomfort. Denies any chest pain, shortness breath, palpitations. Reports that her swelling has improved but not resolved. Objective: Vitals (See below) General: Laying in bed, comfortable, awake, alert, oriented 3 HEENT: NC, AT CVS: +S1S2 Lungs: Very faint crackles, no appreciable wheezing or rhonchi Abdomen: Postsurgical changes noted. Left upper quadrant tenderness and epigastric tenderness Extremities: Trace lower extremity edema, 1+ pitting edema bilateral upper extremities Imaging: CT abdomen / pelvis 09/19: There is a large phlegmon measuring approximately 5.7 cm in diameter medial to the descending duodenum and inferior to the pancreatic head containing opacified bowel content and a few tiny air bubbles. This may represent duodenal perforation, possibly perforation of a duodenal ulcer. There is no pneumoperitoneum otherwise. There is a small volume of free fluid surrounding the lateral margin of the liver. The stomach is distended with fluid with and containing a large fluid level. There findings concerning the lap band as discussed in detail above. The reservoir is no longer identified. The proximal tip of the catheter is intraperitoneal along the lateral abdominal wall. There is a fat containing hernia through the original lap band ostomy site. There are a few dilated small bowel loops, possibly focal ileus. No evidence of bowel obstruction. There is a tiny air bubble long the anterior wall of the bladder, possibly from recent catheterization. CXR 09/19: No acute findings. CT Abdomen / pelvis 09/21: Phlegmon is again identified interposed between the duodenal loop and pancreas. I suspect there is a small volume of bowel contrast within the phlegmon suggestive of perforation or microperforation. There is no fluid collection within the phlegmon to suggest abscess. There is marked wall thickening of the entire duodenal loop with consequent luminal narrowing. However, the bowel contrast can be seen traversing the duodenum into more distal small bowel loops indicating there is no duodenal obstruction. There is a nasogastric tube and upper abdominal surgical drainage tube as changes from the prior study of 09/19/2020.There is no change in the lap band from the prior study. Assessment and plan: Intra-abdominal abscess - Abdominal tenderness noted. Again - Patient remains afebrile - Leukocytosis normalized - Imaging noted above - s/p drainage (POD#5) - c/w Fluconazole / Zosyn - c/w Adjusted pain medications - Currently on TPN - Currently being managed by primary surgical team HTN - possibly some component 2/2 pain - BP has been fluctuating - s/p Nicardipine drip - c/w Hydralazine, Labetalol and Lisinopril - c/w adjusted pain control medications - s/p IV fluids - c/w Furosemide; will likely provide additional dose this afternoon DM2 - c/w ISS DLP - Zetia on hold (re: NPO) Gout - Allopurinol on hold Depression - c/w Bupropion CKD3 - Creatinine remained stable that her baseline - Baseline of 1.2-1.3 - Will avoid nephrotoxic medications - s/p IV fluids Chronic back pain - c/w Lidocaine patch GI prophylaxis - c/w Protonix DVT prophylaxis - c/w Lovenox Disposition: - Awaiting clinical improvement; anticipate prolonged antibiotic course VS,Griselda, I+O VS, Griselda, I+O Laboratory Tests 09/24/20 05:00 Vital Signs Date Time Temp Pulse Resp B/P (MAP) Pulse Ox O2 Delivery O2 Flow Rate FiO2 09/24/20 09:08 18 09/24/20 08:39 190/90 09/24/20 08:00 98.0 78 95 Room Air 09/19/20 23:40 2 I&O- Last 24 Hours up to 6 AM 09/24/20 05:59 Intake Total 6168 ml Output Total 4470 ml Balance 1698 ml KALPANA GUO MD Sep 24, 2020 10:03
--- NOTE | 2020-09-24 10:21 | IPNPDOC ---
Text Note Date of Service The patient was seen on 09/24/20. NOTE General Surgery Dr Garcia The pt is resting in bed, still having discomfort across the upper abdomen, about the same. NG output 4050 but the patient is drinking a lot of liquids. Alicia drain 20ml. Continues to have good urine output. Reports no BM. Has been out of bed in the room. VSSAF NAD, resting in bed NGT in place. MMM Abdomen soft, still with some distention, still with tenderness to palpation epigastric and across upper abdomen, no rebound or guarding, alicia drain is serosanguinous. WBC 9.9, down trending. Hgb 11.9, stable. Platelets 152. Serum creatinine 1.05 with GFR 55. A/P 69y/o female s/p RA abd washout with evacuation of an abscess and portion of her lap band tubing. infected lap band. The pt is reviewed and examined as per Dr Garcia this morning. Plan to continue with current measures over the weekend with tentative plan for upper GI on Sunday to reevaluate for any perforation. Continue NGT to LIS Continue TPN Continue IV Zosyn/fluconazole Encourage OOB/ambulation Encourage IS Continue to monitor. VS,Fishbone, I+O VS, Fishbone, I+O Laboratory Tests 09/24/20 05:00 Vital Signs Date Time Temp Pulse Resp B/P (MAP) Pulse Ox O2 Delivery O2 Flow Rate FiO2 09/24/20 09:08 18 09/24/20 08:39 190/90 09/24/20 08:00 98.0 78 95 Room Air 09/19/20 23:40 2 I&O- Last 24 Hours up to 6 AM 09/24/20 06:00 Intake Total 4608 ml Output Total 3420 ml Balance 1188 ml Dunia Baker Sep 24, 2020 10:21
[2020-09-24 12:00] VITALS: BP 152/67
[2020-09-24] MEDS: KETOROLAC 30 MG/ML 1ML VIAL IV PRN (13:09)
[2020-09-24 16:00] VITALS: BP 170/76
[2020-09-24] MEDS ORDERED: [UNRECOGNIZED DRUG - MIXTURE] IV SCH ×4 (18:00)
[2020-09-24] MEDS ORDERED: FAT EMULSION IV 20% 500 ML IV SCH (18:00)
[2020-09-24 20:00] VITALS: BP 150/70
[2020-09-24] MEDS: **NOTE PATIENT COMMENT** MISC XX SCH (20:37)
[2020-09-25] VITALS: BP 170/94
[2020-09-25] MEDS: FLUCONAZOLE 200 MG in IV 1 EA IV SCH ×2 (00:30→23:58)
[2020-09-25] MEDS: HumaLOG INSULIN (NovoLOG) PER UNIT SC SCH ×5 (00:30→23:58)
[2020-09-25] MEDS: MORPHINE 2 MG/ML 1ML VIAL (J2270) IV PRN ×4 (00:31→20:29)
[2020-09-25] MEDS: KETOROLAC 30 MG/ML 1ML VIAL IV PRN ×2 (02:22→23:07)
[2020-09-25] MEDS: hydrALAZINE 20MG/ML 1ML VIAL (J0360 PER 20MG) IV SCH ×4 (02:22→20:28)
[2020-09-25 04:00] VITALS: BP 166/64
[2020-09-25 05:05] LABS: HEMOGLOBIN 11.8 g/dl (12.0-15.5); MEAN CORPUSCULAR HEMOGLOBIN 29.2 pg (27.0-33.0); MEAN CORPUSCULAR HGB CONC 32.8 g/dl (32.0-36.5); MEAN CORPUSCULAR VOLUME 89.1 fl (80.0-96.0); PLATELET COUNT, AUTOMATED 163 10^3/uL (150-450); RED BLOOD COUNT 4.04 10^6/uL (4.00-5.40); WHITE BLOOD COUNT 9.9 10^3/uL (4.0-10.0)
[2020-09-25] MEDS: PIPERACILLIN/TAZOBACTAM SOD 2.25 GM in D5W MINI-BAG PLUS 50 ML IV SCH ×4 (05:11→23:07)
[2020-09-25 05:40] LABS: ALBUMIN 2.2 GM/DL (3.2-5.2); BILIRUBIN,TOTAL 0.9 MG/DL (0.2-1.0); CALCIUM LEVEL 8.2 MG/DL (8.8-10.2); GLOMERULAR FILTRATION RATE 58.2 (>39); MAGNESIUM LEVEL 1.9 MG/DL (1.8-2.4); POTASSIUM SERUM 3.5 MEQ/L (3.5-5.1); TOTAL PROTEIN 5.6 GM/DL (6.4-8.2)
[2020-09-25] MEDS: SODIUM CHLORIDE 0.9% INJ 10 ML SYR IV SCH ×2 (06:25→18:27)
[2020-09-25 08:00] VITALS: BP 160/68
[2020-09-25] MEDS: ENOXAPARIN 40MG/0.4ML SYRINGE (J1650 PER 10MG) SC SCH (09:53)
[2020-09-25] MEDS: PANTOPRAZOLE 40MG VIAL (C9113 PER 1) IV SCH ×2 (09:54→20:28)
[2020-09-25] MEDS: LABETALOL 100MG/20ML VIAL IV SCH ×2 (09:54→20:29)
[2020-09-25] MEDS: FUROSEMIDE 40MG/4ML VIAL (J1940) IV SCH (09:54)
[2020-09-25] MEDS: buPROPion **SR TABLET** (ZYBAN) 150MG PO SCH ×2 (09:55→20:28)
[2020-09-25] MEDS: FLUTICASONE PROP 0.05% NASAL SPRAY 16 GM (FLONASE) NARES SCH (09:56)
[2020-09-25] MEDS: LEVEMIR (INSULIN DETEMIR) 1 UNITS/0.01ML SC SCH ×2 (09:56→20:30)
--- NOTE | 2020-09-25 10:06 | IPNPDOC ---
Text Note Date of Service The patient was seen on 09/25/20. NOTE Subjective: Patient is a 69-year-old female with a PMHx of Gastric bypass (8 years ago; s/p Revision to remove infected port 8 months ago), who presented to the emergency room with complaints of vomiting blood and 10 out of 10 in severity, sharp, consistent abdominal pain. There is a suspicion of a perforated duodenal ulcer and patient underwent exploratory robotic laparoscopy and was found to have an intra-abdominal abscess surrounding her lap band procedure. Postoperatively, patient was found to have significantly elevated blood pressure and hospitalist service was consulted for assistance in the management of her BP. Patient was seen and examined at the bedside. Patient reports that she is still experiencing some abdominal pain. Denies any nausea or vomiting. Has not recently chest pain, shortness breath or palpitations. Denies any urinary discomfort. Reports that her swelling of her arms and legs has improved. Objective: Vitals (See below) General: Patient is laying flat in bed, does not appear to be in any distress. Appears comfortable, is awake, alert and oriented 3 HEENT: NC, AT CVS: +S1S2 Lungs: Auscultation does not reveal any rhonchi, crackles or wheezing Abdomen: Tenderness at epigastrium noted. No significant distention post surgical changes Extremities: Extremities do not reveal any significant pitting edema Imaging: CT abdomen / pelvis 09/19: There is a large phlegmon measuring approximately 5.7 cm in diameter medial to the descending duodenum and inferior to the pancreatic head containing opacified bowel content and a few tiny air bubbles. This may represent duodenal perforation, possibly perforation of a duodenal ulcer. There is no pneumoperitoneum otherwise. There is a small volume of free fluid surrounding the lateral margin of the liver. The stomach is distended with fluid with and containing a large fluid level. There findings concerning the lap band as discussed in detail above. The reservoir is no longer identified. The proximal tip of the catheter is intraperitoneal along the lateral abdominal wall. There is a fat containing hernia through the original lap band ostomy site. There are a few dilated small bowel loops, possibly focal ileus. No evidence of bowel obstruction. There is a tiny air bubble long the anterior wall of the bladder, possibly from recent catheterization. CXR 09/19: No acute findings. CT Abdomen / pelvis 09/21: Phlegmon is again identified interposed between the duodenal loop and pancreas. I suspect there is a small volume of bowel contrast within the phlegmon suggestive of perforation or microperforation. There is no fluid collection within the phlegmon to suggest abscess. There is marked wall thickening of the entire duodenal loop with consequent luminal narrowing. However, the bowel contrast can be seen traversing the duodenum into more distal small bowel loops indicating there is no duodenal obstruction. There is a nasogastric tube and upper abdominal surgical drainage tube as changes from the prior study of 09/19/2020.There is no change in the lap band from the prior study. Assessment and plan: Intra-abdominal abscess - Afebrile / hemodynamically stable - s/p Leukocytosis - Imaging noted above - s/p drainage (POD#6) - c/w Fluconazole / Zosyn - c/w Adjusted pain medications - c/w TPN - Currently being managed by primary surgical team; plan for repeat imaging on Sunday and possible advancement of diet at that time HTN - possibly some component 2/2 pain - BP improved - s/p Nicardipine drip - c/w Hydralazine, Labetalol and Lisinopril - c/w adjusted pain control medications - s/p IV fluids - c/w Furosemide; has been diuresing appropriately DM2 - c/w ISS DLP - Zetia on hold (re: NPO) Gout - Allopurinol on hold Depression - c/w Bupropion CKD3 - Creatinine remains stable at this time; baseline of 1.2-1.3 - Will avoid nephrotoxic medications - s/p IV fluids Chronic back pain - c/w Lidocaine patch GI prophylaxis - c/w Protonix DVT prophylaxis - c/w Lovenox Disposition: - Awaiting clinical improvement; anticipate prolonged antibiotic course - Anticipate additional imaging Sunday VS,Fishbone, I+O VS, Fishbone, I+O Laboratory Tests 09/25/20 04:52 Vital Signs Date Time Temp Pulse Resp B/P (MAP) Pulse Ox O2 Delivery O2 Flow Rate FiO2 09/25/20 09:55 160/68 09/25/20 09:54 75 09/25/20 08:00 97.4 18 96 Room Air 09/19/20 23:40 2 I&O- Last 24 Hours up to 6 AM 09/25/20 06:00 Intake Total 2340 ml Output Total 2920 ml Balance -580 ml GUO,VIJESH MD Sep 25, 2020 10:06
[2020-09-25 12:00] VITALS: BP 120/60
[2020-09-25 16:00] VITALS: BP 160/78
--- NOTE | 2020-09-25 18:16 | IPN ---
PROGRESS NOTE DATE: 09/25/2020 HISTORY: The patient was admitted 6 days ago and underwent laparoscopy for possible perforated duodenal ulcer. She was found to have infection of a remnant of a lap band device that had been implanted some years ago. She had infection involved the end of the residual tubing from the infusion port, which had been removed some time earlier. She has remained nothing by mouth (n.p.o.) on total parenteral nutrition (TPN) since surgery. She remains on antibiotics. She has been allowed to continue drinking water and taking ice chips around her NG tube. OBJECTIVE: Vital signs: The patient has been afebrile over the past 24 hours. Her pulse is in the 60s and 70s and her blood pressure is good. Her room air oxygen saturation is normal. Intake and output shows that yesterday she had 1980 recorded in with 3400 recorded out. 2600 of that was urine with 800 of NG output. She has a Shaw drain that has put out 20 ml. PHYSICAL EXAMINATION: The patient is lying quietly and comfortably in her bed. She denies any significant abdominal tenderness at rest. She complains primarily of back discomfort, which is a chronic problem. Skin is warm and dry. Heart examination reveals a regular rate and rhythm. The lungs are clear. The abdomen is obese, but soft. She has several small incisions with Steri-Strips in place. The drain is noted on the right and has a minimal amount of pink fluid in the tubing. She does have active bowel sounds. LABORATORY STUDIES: Today show a white count of 10, which is stable from yesterday. Hemoglobin is 12, hematocrit 36 and the platelet count is 163,000. Chemistry profile shows normal electrolytes with BUN of 26, creatinine 1 and a glucose of 347. Total protein is 5.6 with a albumin of 2.2. IMPRESSION: The patient is doing well, now 6 days postop from laparoscopy and removal of a small portion of infected tubing from a prior lap band. She has been drinking a lot of water, most of which comes back through the NG tube we think. I reviewed her CT scan from the . The radiologist had suggested the presence of some contrast outside the lumen of the duodenum and I would disagree with this interpretation after looking at the CT scan from the and . I believe that he has marked areas where the contrast is within the lumen of the duodenum, though it is collapsed at this point. PLAN: The patient's NG tube will be clamped as a trial for 6 hours and we will then check her residual. If she tolerates the clamping, I will take her NG tube out. If the NG tube is removed, will put her on some liquids and stop her total parenteral nutrition (TPN)
[2020-09-25 20:00] VITALS: BP 140/65
[2020-09-25] MEDS: **NOTE PATIENT COMMENT** MISC XX SCH (20:30)
[2020-09-26] VITALS: BP 138/65
[2020-09-26] MEDS: hydrALAZINE 20MG/ML 1ML VIAL (J0360 PER 20MG) IV SCH (01:16)
[2020-09-26 04:00] VITALS: BP 117/57
[2020-09-26] MEDS: PIPERACILLIN/TAZOBACTAM SOD 2.25 GM in D5W MINI-BAG PLUS 50 ML IV SCH ×4 (04:49→23:23)
[2020-09-26 05:55] LABS: BASO # 0.1 10^3/uL (0.0-0.2); BASO % 0.7 % (0.0-1.0); EOS # 0.4 10^3/uL (0.0-0.5); EOS % 4.2 % (0.0-3.0); HEMOGLOBIN 11.2 g/dl (12.0-15.5); LYMPH # 2.3 10^3/uL (1.5-5.0); LYMPH % 24.8 % (24.0-44.0); MEAN CORPUSCULAR HEMOGLOBIN 29.3 pg (27.0-33.0); MEAN CORPUSCULAR HGB CONC 32.9 g/dl (32.0-36.5); MONO # 1.2 10^3/uL (0.0-0.8); MONO % 13.1 % (2.0-8.0); NEUTROPHILS # 5.1 10^3/uL (1.5-8.5); NEUTROPHILS % 55.5 % (36.0-66.0); PLATELET COUNT, AUTOMATED 180 10^3/uL (150-450); RED BLOOD COUNT 3.82 10^6/uL (4.00-5.40); WHITE BLOOD COUNT 9.2 10^3/uL (4.0-10.0)
[2020-09-26] MEDS: HumaLOG INSULIN (NovoLOG) PER UNIT SC SCH ×4 (06:00→23:35)
[2020-09-26 06:05] LABS: ALBUMIN 2.2 GM/DL (3.2-5.2); ALT/SGPT 53 U/L (12-78); BLOOD UREA NITROGEN 27 MG/DL (7-18); CARBON DIOXIDE LEVEL 31 MEQ/L (21-32); CHLORIDE LEVEL 104 MEQ/L (98-107); CREATININE FOR GFR 0.96 MG/DL (0.55-1.30); GLOMERULAR FILTRATION RATE > 60.0 (>39); GLUCOSE, FASTING 108 MG/DL (70-100); POTASSIUM SERUM 3.2 MEQ/L (3.5-5.1); SODIUM LEVEL 141 MEQ/L (136-145); TOTAL PROTEIN 5.5 GM/DL (6.4-8.2)
[2020-09-26] MEDS: SODIUM CHLORIDE 0.9% INJ 10 ML SYR IV SCH ×2 (06:19→18:03)
[2020-09-26 08:00] VITALS: BP 161/66
[2020-09-26] MEDS ORDERED: POTASSIUM CHLORIDE 10 MEQ SR TABLET PO ONE (08:00)
[2020-09-26] MEDS: PANTOPRAZOLE 40MG VIAL (C9113 PER 1) IV SCH ×2 (08:49→21:11)
[2020-09-26] MEDS: ENOXAPARIN 40MG/0.4ML SYRINGE (J1650 PER 10MG) SC SCH (08:49)
[2020-09-26] MEDS: FUROSEMIDE 40MG/4ML VIAL (J1940) IV SCH ×2 (08:49→21:11)
[2020-09-26] MEDS: buPROPion **SR TABLET** (ZYBAN) 150MG PO SCH ×2 (08:50→21:08)
[2020-09-26] MEDS: **hydrALAZINE HCL** 25 MG TAB PO SCH ×3 (08:50→21:10)
[2020-09-26] MEDS: LABETALOL 100MG/20ML VIAL IV SCH ×2 (08:51→21:54)
[2020-09-26] MEDS: FLUTICASONE PROP 0.05% NASAL SPRAY 16 GM (FLONASE) NARES SCH (08:51)
[2020-09-26] MEDS: LEVEMIR (INSULIN DETEMIR) 1 UNITS/0.01ML SC SCH ×2 (08:51→21:36)
[2020-09-26] MEDS: OMEGA-3 1000MG CAPSULE PO SCH ×2 (09:00→21:00)
--- NOTE | 2020-09-26 09:00 | IPNPDOC ---
Text Note Date of Service The patient was seen on 09/26/20. NOTE Subjective: Patient is a 69-year-old female with a PMHx of Gastric bypass (8 years ago; s/p Revision to remove infected port 8 months ago), who presented to the emergency room with complaints of vomiting blood and 10 out of 10 in severity, sharp, consistent abdominal pain. There is a suspicion of a perforated duodenal ulcer and patient underwent exploratory robotic laparoscopy and was found to have an intra-abdominal abscess surrounding her lap band procedure. Postoperatively, patient was found to have significantly elevated blood pressure and hospitalist service was consulted for assistance in the management of her BP. Patient was seen and examined at the bedside. Patient reports that her abdominal pain has improved, but not present at rest. Patient reports mostly back pain is a chronic issue. Denies any chest pain, shortness breath, palpitations. Her NG tube was removed and reports that she has been tolerating a clear liquid diet. Reports that she has been passing gas. Has not yet had any bowel movements. Denies any urinary discomfort. Objective: Vitals (See below) General: Patient is laying in bed comfortably. Does not appear to be in any acute distress, is awake, alert and oriented to person, place and time HEENT: NC, AT CVS: +S1S2 Lungs: Air entry is fair bilaterally without any rhonchi, crackles or wheezing Abdomen: Postsurgical changes (s/p laparoscopy), nondistended. Mild tenderness at epigastrium, however, is improved compared to yesterday Extremities: Again, this morning, there does not appear to be any significant pitting edema Imaging: CT abdomen / pelvis 09/19: There is a large phlegmon measuring approximately 5.7 cm in diameter medial to the descending duodenum and inferior to the pancreatic head containing opacified bowel content and a few tiny air bubbles. This may represent duodenal perforation, possibly perforation of a duodenal ulcer. There is no pneumoperitoneum otherwise. There is a small volume of free fluid surrounding the lateral margin of the liver. The stomach is distended with fluid with and containing a large fluid level. There findings concerning the lap band as discussed in detail above. The reservoir is no longer identified. The proximal tip of the catheter is intraperitoneal along the lateral abdominal wall. There is a fat containing hernia through the original lap band ostomy site. There are a few dilated small bowel loops, possibly focal ileus. No evidence of bowel obstruction. There is a tiny air bubble long the anterior wall of the bladder, possibly from recent catheterization. CXR 09/19: No acute findings. CT Abdomen / pelvis 09/21: Phlegmon is again identified interposed between the duodenal loop and pancreas. I suspect there is a small volume of bowel contrast within the phlegmon suggestive of perforation or microperforation. There is no fluid collection within the phlegmon to suggest abscess. There is marked wall thickening of the entire duodenal loop with consequent luminal narrowing. However, the bowel contrast can be seen traversing the duodenum into more distal small bowel loops indicating there is no duodenal obstruction. There is a nasogastric tube and upper abdominal surgical drainage tube as changes from the prior study of 09/19/2020.There is no change in the lap band from the prior study. Assessment and plan: Intra-abdominal abscess - Afebrile / hemodynamically stable - s/p Leukocytosis / CRP improving - Imaging noted above - s/p Exploratory laparoscopy with abdominal washout, takedown of adhesions, evacuation of phlegmon, removal of large portion of Lap-Band tubing (POD#7) - c/w Fluconazole / Zosyn - c/w Adjusted pain medications - s/p TPN; patient has been started on a clear liquid diet yesterday - has been tolerating this well - Currently being managed by primary surgical team; plan for repeat imaging on Sunday and possible advancement of diet at that time HTN - BP improved - s/p Nicardipine drip - c/w Lisinopril PO - Will change Hydralazine to PO today - Will c/w Furosemide IV (will increase to BID) and Labetalol IV (with specific hold parameters) - s/p IV fluids DM2 - c/w ISS DLP - Will resume Zetia and Schriever 3 fatty acids Gout - Will resume Allopurinol Depression - c/w Bupropion CKD3 - Creatinine remains stable at this time; baseline of 1.2-1.3 - Will avoid nephrotoxic medications - s/p IV fluids Chronic back pain - c/w Lidocaine patch GI prophylaxis - c/w Protonix DVT prophylaxis - c/w Lovenox Disposition: - Patient's diet has been advanced - Transitioning IV BP medications to PO VS,Fishbone, I+O VS, Fishbone, I+O Laboratory Tests 09/26/20 05:16 Vital Signs Date Time Temp Pulse Resp B/P (MAP) Pulse Ox O2 Delivery O2 Flow Rate FiO2 09/26/20 08:00 97.1 67 18 161/66 (97) 95 Room Air I&O- Last 24 Hours up to 6 AM 09/26/20 06:00 Intake Total 700 ml Output Total 1915 ml Balance -1215 ml KALPANA GUO MD Sep 26, 2020 09:00
[2020-09-26] MEDS: EZETIMIBE 10 MG TAB (ZETIA) PO SCH (11:32)
[2020-09-26] MEDS: allopurinoL 300 MG TAB PO SCH (11:32)
[2020-09-26 12:00] VITALS: BP 162/68
[2020-09-26] MEDS: MORPHINE 2 MG/ML 1ML VIAL (J2270) IV PRN ×2 (12:56→21:12)
[2020-09-26 16:00] VITALS: BP 150/70
[2020-09-26 20:00] VITALS: BP 154/76
[2020-09-26] MEDS: **NOTE PATIENT COMMENT** MISC XX SCH (21:00)
[2020-09-27] VITALS: BP 153/68
[2020-09-27] MEDS: FLUCONAZOLE 200 MG in IV 1 EA IV SCH (00:56)
[2020-09-27 04:00] VITALS: BP 150/94
--- NOTE | 2020-09-27 05:00 | IPN ---
PROGRESS NOTE DATE: 09/26/2020 SUBJECTIVE: The patient is now postop #7 from a laparoscopic exploration for some inflammation along the medial aspect of the duodenum adjacent to the pancreas. She was started on some clear liquids yesterday. She was advanced to full liquids this morning. She reports some soreness in the abdomen particularly in the area where her drain is. She has had no nausea or vomiting. She tolerated removal of her NG-tube yesterday evening after a trial of clamping. She reports having had two bowel movements and is passing some gas. Vital signs shows that she has been afebrile over the past 24 hours. Pulse is in the 60s and 70s. Blood pressure is good. Intake and output showed that yesterday she had 1340 in with 2200 out. She had only 15 ml out of her Shaw drain. Her urine output has been good today as well. OBJECTIVE: Patient is alert, oriented and very pleased today that she could drink fluids. She denies any particular pain at rest but will occasionally have sharp pains on the right with movement. Heart exam shows a regular rhythm. The lungs are clear. The abdomen is obese but soft. Her incisions all appear to be healing well. She has some tenderness on the right around her drain site but no significant tenderness on the left. LABORATORY DATA: Laboratory studies today shows a white count of 9, hemoglobin of 11, hematocrit 34 and a platelet count of 180,000. Differential count shows 56% neutrophils, 25% lymphocytes and 13% monocytes. Chemistry profile shows a sodium of 141, potassium of 3.2, chloride 104, CO2 of 31, BUN 27, creatinine 0.96, and a glucose of 108. Liver function tests are normal. She had a C-reactive protein today of 6.16 which is down from 17 on the . IMPRESSION: The patient is doing very well and tolerating full liquids now without any evidence of any worsening of her condition to suggest a duodenal leak. PLAN: She will remain on full liquids today. Her TPN was stopped last evening. We will recheck her labs in the morning. I will keep her NPO after midnight in case Dr. Garcia would care to do any further studies in the morning.
[2020-09-27] MEDS: PIPERACILLIN/TAZOBACTAM SOD 2.25 GM in D5W MINI-BAG PLUS 50 ML IV SCH ×4 (05:58→23:52)
[2020-09-27] MEDS: HumaLOG INSULIN (NovoLOG) PER UNIT SC SCH ×3 (06:00→18:00)
[2020-09-27] MEDS: **hydrALAZINE HCL** 25 MG TAB PO SCH ×3 (06:00→21:12)
[2020-09-27] MEDS: MORPHINE 2 MG/ML 1ML VIAL (J2270) IV PRN (06:14)
[2020-09-27] MEDS: SODIUM CHLORIDE 0.9% INJ 10 ML SYR IV SCH ×2 (06:15→18:42)
[2020-09-27 07:26] VITALS: BP 152/70
[2020-09-27 07:37] LABS: BASO # 0.1 10^3/uL (0.0-0.2); BASO % 0.6 % (0.0-1.0); EOS # 0.4 10^3/uL (0.0-0.5); EOS % 4.2 % (0.0-3.0); HEMATOCRIT 33.3 % (36.0-47.0); HEMOGLOBIN 10.9 g/dl (12.0-15.5); LYMPH # 2.3 10^3/uL (1.5-5.0); LYMPH % 27.3 % (24.0-44.0); MEAN CORPUSCULAR HEMOGLOBIN 29.5 pg (27.0-33.0); MEAN CORPUSCULAR HGB CONC 32.7 g/dl (32.0-36.5); MEAN CORPUSCULAR VOLUME 90.2 fl (80.0-96.0); MONO # 1.2 10^3/uL (0.0-0.8); MONO % 13.7 % (2.0-8.0); NEUTROPHILS # 4.4 10^3/uL (1.5-8.5); NEUTROPHILS % 52.3 % (36.0-66.0); PLATELET COUNT, AUTOMATED 178 10^3/uL (150-450); RED BLOOD COUNT 3.69 10^6/uL (4.00-5.40); WHITE BLOOD COUNT 8.4 10^3/uL (4.0-10.0)
[2020-09-27 08:03] LABS: ALBUMIN 2.3 GM/DL (3.2-5.2); ALT/SGPT 102 U/L (12-78); BILIRUBIN,TOTAL 1.1 MG/DL (0.2-1.0); BLOOD UREA NITROGEN 24 MG/DL (7-18); C REACTIVE PROTEIN QUANTITATIV 4.81 MG/DL (0.00-0.30); CALCIUM LEVEL 7.9 MG/DL (8.8-10.2); CARBON DIOXIDE LEVEL 32 MEQ/L (21-32); CHLORIDE LEVEL 104 MEQ/L (98-107); CREATININE FOR GFR 0.97 MG/DL (0.55-1.30); GLOMERULAR FILTRATION RATE > 60.0 (>39); GLUCOSE, FASTING 129 MG/DL (70-100); MAGNESIUM LEVEL 1.9 MG/DL (1.8-2.4); POTASSIUM SERUM 3.5 MEQ/L (3.5-5.1); SODIUM LEVEL 140 MEQ/L (136-145); TOTAL PROTEIN 5.6 GM/DL (6.4-8.2)
[2020-09-27] MEDS ORDERED: GASTROGRAFIN SOLUTION 30ML (Q9963) As Ordered ONE (08:42)
[2020-09-27] MEDS: LEVEMIR (INSULIN DETEMIR) 1 UNITS/0.01ML SC SCH ×2 (09:00→21:12)
--- NOTE | 2020-09-27 09:06 | IPNPDOC ---
Text Note Date of Service The patient was seen on 09/27/20. NOTE General Surgery Dr Garcia The pt is sitting on the side of the bed and states she is feeling much better. Denies abdominal pain. NG tube was removed over the weekend. She was advanced to full liquids on 09/26 which she states she tolerated. VSSAF NAD, sitting up on side of bed. MMM Abdomen soft, VAMSI drain in place with 20 mL drainage yesterday. Labs with No leukocytosis A/P 69y/o female s/p RA abd washout with evacuation of an abscess and portion of her lap band tubing. infected lap band. NGT was removed over the weekend. The pt is reviewed and examined as per Dr Garcia this morning. Dr. Garcia has discussed with the patient that the plan is to request UGI this a.m. to reevaluate for any stricture or perforation, imaging pending at this time. Continue IV Zosyn/fluconazole Encourage OOB/ambulation Encourage IS Continue to monitor. VS,Fishbone, I+O VS, Fishbone, I+O Laboratory Tests 09/27/20 07:09 Vital Signs Date Time Temp Pulse Resp B/P (MAP) Pulse Ox O2 Delivery O2 Flow Rate FiO2 09/27/20 07:26 97.0 68 18 152/70 (97) 96 Room Air I&O- Last 24 Hours up to 6 AM 09/27/20 05:59 Intake Total 500 ml Output Total 2300 ml Balance -1800 ml Dunia Baker Sep 27, 2020 09:06
[2020-09-27] MEDS: PANTOPRAZOLE 40MG VIAL (C9113 PER 1) IV SCH ×2 (09:39→21:11)
[2020-09-27] MEDS: FUROSEMIDE 40MG/4ML VIAL (J1940) IV SCH (09:39)
[2020-09-27] MEDS: OMEGA-3 1000MG CAPSULE PO SCH ×2 (09:40→21:13)
[2020-09-27] MEDS: ENOXAPARIN 40MG/0.4ML SYRINGE (J1650 PER 10MG) SC SCH (09:40)
[2020-09-27] MEDS: EZETIMIBE 10 MG TAB (ZETIA) PO SCH (09:40)
[2020-09-27] MEDS: buPROPion **SR TABLET** (ZYBAN) 150MG PO SCH ×2 (09:40→21:12)
[2020-09-27] MEDS: allopurinoL 300 MG TAB PO SCH (09:40)
[2020-09-27] MEDS: FLUTICASONE PROP 0.05% NASAL SPRAY 16 GM (FLONASE) NARES SCH (09:41)
--- NOTE | 2020-09-27 10:08 | IPNPDOC ---
Text Note Date of Service The patient was seen on 09/27/20. NOTE Subjective: Patient was seen and examined this morning at bedside. She states her pain is about the same as yesterday. She reports tolerating a full liquids diet last night. She is currently NPO for upper GI series this morning per surgery. She reports she did have a BM last night which was followed by an episode of diarrhea. Denies nausea and vomiting. Objective: VITAL SIGNS: see below GENERAL: Alert, comfortable, in no acute distress HEENT: Normocephalic, atraumatic, sclera anicteric, moist mucous membranes CARDIOVASCULAR: Regular rate and rhythm, normal S1 and S2. No murmurs, rubs, or gallops RESPIRATORY: Clear to auscultation bilaterally with equal air entry bilaterally. No wheezing, rhonchi, or rales. ABDOMEN: Soft, nondistended, bowel sounds present, tender to palpation over the epigastric area EXTREMITIES: No cyanosis or edema. Pulses 2+/4 in bilateral upper and lower extremities NEUROLOGIC: No focal deficits appreciated PSYCHIATRIC: Mood and affect appropriate Assessment/Plan: 69-year-old female with a PMHx of Gastric bypass (8 years ago; s/p Revision to remove infected port 8 months ago), who presented to the emergency room with complaints of vomiting blood and 10 out of 10 in severity, sharp, consistent abdominal pain. There is a suspicion of a perforated duodenal ulcer and patient underwent exploratory robotic laparoscopy and was found to have an intra-abdominal abscess surrounding her lap band procedure. Postoperatively, patient was found to have significantly elevated blood pressure and hospitalist service was consulted for assistance in the management of her BP. # Intra-abdominal abscess - Afebrile / hemodynamically stable - s/p Leukocytosis / CRP improving - Imaging noted above - s/p Exploratory laparoscopy with abdominal washout, takedown of adhesions, evacuation of phlegmon, removal of large portion of Lap-Band tubing (POD#8) - continue Fluconazole / Zosyn per surgery - continue adjusted pain medications - s/p TPN; patient has been tolerating clear liquid diet - Currently being managed by primary surgical team; plan for repeat imaging today and possible advancement of diet at that time # HTN - BP improved - s/p Nicardipine drip and IV labetalol. s/p IV fluids - continue Lisinopril, furosemide, and hydralazine PO # DM2 - continue ISS ACHS, consistent carb when diet is advanced # DLP - continue Zetia and Butner 3 fatty acids # Gout - continue Allopurinol # Depression - continue Bupropion # CKD3 - Creatinine remains stable at this time; baseline of 1.2-1.3 - Avoid nephrotoxic medications - s/p IV fluids # Chronic back pain - continue Lidocaine patch # GI prophylaxis - continue Protonix # DVT prophylaxis: [place] Lovenox Disposition: pending advancement of diet per surgery VS,Fishbone, I+O VS, Fishbone, I+O Laboratory Tests 09/27/20 07:09 Vital Signs Date Time Temp Pulse Resp B/P (MAP) Pulse Ox O2 Delivery O2 Flow Rate FiO2 09/27/20 09:40 152/70 09/27/20 07:26 97.0 68 18 96 Room Air I&O- Last 24 Hours up to 6 AM 09/27/20 05:59 Intake Total 500 ml Output Total 2300 ml Balance -1800 ml GME ATTESTATION GME ATTESTATION My faculty preceptor for this patient encounter was physically present during the encounter and was fully available. All aspects of the patient interview, examination, medical decision making process, and medical care plan development were reviewed and approved by the faculty preceptor. The faculty preceptor is aware and concurs with the plan as stated in the body of this note and will attest to such by his/her cosignature. ATTENDING NOTE I, Latasha Guo, have independently examined this patient and performed my own physical exam, as well as reviewed the documentation and edited where necessary. I have discussed in detail with the resident / student the findings and plan of treatment as documented by the resident / student and edited their note. I agree with their findings and treatment plan and have edited their documentation. I will continue to follow the patient during this hospital stay. OMAR BURNETT D.O. Sep 27, 2020 10:08 LATASHA GUO MD Sep 27, 2020 12:08
[2020-09-27 11:49] VITALS: BP 142/72
--- NOTE | 2020-09-27 11:56 | REP ---
INDICATION: duodenal obstruction. COMPARISON: None. TECHNIQUE: The procedure was performed under the direct supervision of Dr. Burnett. The images were reviewed with . Liquid barium was administered in the right lateral recumbent position. 3.1 minutes of fluoro time was utilized for this procedure. FINDINGS: The oral and pharyngeal stages of deglutition are unremarkable. Esophageal transport is prompt and efficient and there is no esophagitis, stricture, mucosal ring or hiatal hernia. There is free flow of contrast through the LAP band. The stomach is grossly normal. The rugal folds are smooth and regular. There is no evidence of gastritis neoplasm or ulcer disease. In the post bulbar duodenum there are thickened folds. There is no evidence of obstruction, narrowing or extravasation. IMPRESSION: In the post bulbar duodenum there are thickened folds. There is no evidence of obstruction, narrowing or extravasation. <Electronically signed by Yousif Cooper > 09/27/20 0990 <Electronically signed by Noe Burnett > 09/27/20 [id number]
[2020-09-27] MEDS ORDERED: AUGM875T28 PO (14:26)
[2020-09-27] MEDS ORDERED: LISI10TA22 PO (14:48)
--- NOTE | 2020-09-27 14:50 | DS.PDOC ---
Discharge Summary General Date of Admission Sep 19, 2020 at 21:11 Date of Discharge 09/27/20 Discharge Summary Gen. surgery. Dr. Garcia. PROCEDURES PERFORMED DURING STAY: s/p RA abd washout with evacuation of an abscess and portion of her lap band tubing. ADMITTING DIAGNOSES: Infected lap band/s/p RA abd washout with evacuation of an abscess and portion of her lap band tubing. Hypertension DM 2 Dyslipidemia Bout Depression CK 83 Chronic back pain Obesity. BMI 34.6 DISCHARGE DIAGNOSES: Infected lap band/s/p RA abd washout with evacuation of an abscess and portion of her lap band tubing. Hypertension DM 2 Dyslipidemia Bout Depression CK 83 Chronic back pain Obesity. BMI 34.6 HISTORY OF PRESENT ILLNESS: The patient is a 69-year-old female who presented 09/19/20 with history of abdominal pain progressively worsening. HOSPITAL COURSE:The patient is a 69-year-old female who presented 09/19/20 with history of abdominal pain progressively worsening. CT scan in the emergency room was consistent with phlegmon surrounding the duodenum and a few small air bubbles. Gen. surgery was consulted. The patient was found to have an infected lap band and underwent RA abd washout with evacuation of an abscess and portion of her lap band tubing as per Dr. Garcia 09/20/20. The patient was continued not linda by mouth with NG tube until 09/25/20. NG tube was removed and the patient was advanced to clear liquid diet. The patient was then advanced 09/26 for liquid diet. The patient was treated with IV Zosyn since admission 09/19. The patient's chronic medical conditions were managed as per hospitalist during her admission, her blood pressure was noted to be elevated during admission, antihypertensives were adjusted. Currently she is on lisinopril 10 mg by mouth twice a day. Patient was reviewed and examined as per Dr. Garcia this morning, 09/27/20. Plan was to request upper GI study to reevaluate and assess for any stricture or perforation. Imaging is reviewed by Dr. Garcia. There was no evidence of obstruction, narrowing or extravasation. The patient was felt stable for discharge to continue with oral antibiotics as an outpatient. It was also discussed with the patient that she should follow-up with Dr. Silveira who originally placed the patient's lap band for further recommendations and nadeen hankins. Plan to remove VAMSI drain prior to her discharge today. DISCHARGE MEDICATIONS: Please see below. ALLERGIES: Please see below. PHYSICAL EXAMINATION ON DISCHARGE: VITAL SIGNS: Please see below. GENERAL: No acute distress sitting on the side effects. HEENT: MMM CARDIOVASCULAR EXAMINATION: S1-S2 regular rate rhythm RESPIRATORY EXAMINATION: Clear to auscultation ABDOMINAL EXAMINATION: Soft, dressings C/D/I . EXTREMITIES: No edema NEUROLOGICAL EXAMINATION: No Focal deficits PSYCHIATRIC EXAMINATION: Pleasant and cooperative LABORATORY DATA: Please see below. IMAGING: CT abdomen/pelvis 09/19/20 IMPRESSION: There is a large phlegmon measuring approximately 5.7 cm in diameter medial to t he descending duodenum and inferior to the pancreatic head containing opacified bowel content and a few tiny air bubbles. This may represent duodenal perforation, possibly perforation of a duodenal ulcer. There is no pneumoperitoneum otherwise. There is a small volume of free fluid surrounding the lateral margin of the liver. The stomach is distended with fluid with and containing a large fluid level. There findings concerning the lap band as discussed in detail above. The reservoir is no longer identified. The proximal tip of the catheter is intraperitoneal along the lateral abdominal wall. There is a fat containing hernia through the original lap band ostomy site. There are a few dilated small bowel loops, possibly focal ileus. No evidence of bowel obstruction. There is a tiny air bubble long the anterior wall of the bladder, possibly from recent catheterization. <Electronically signed by Bear Leach > 09/19/20 UGI. IMPRESSION: In the post bulbar duodenum there are thickened folds. There is no evidence of obstruction, narrowing or extravasation. <Electronically signed by Yousif Cooper > 09/27/20 0921 DISCHARGE INSTRUCTIONS: Discharge home Discontinue VAMSI drain prior to discharge ACTIVITY: As tolerated. The lifting greater than 20 pounds Okay to shower. No bath for 5 days Call office with any questions DIET: Regular Follow-up with Dr. Garcia in 2 weeks Follow-up with Dr. Silveira in 5-7 days Follow-up with PCP in 1-2 weeks for continued management of hypertension. Lis inopril adjusted to 10 mg by mouth twice a day during admission. The patient will be discharged on a course of oral antibiotics, Augmentin 875 mg by mouth twice a day for an additional 7 days to complete 14 days total. ITEMS TO FOLLOWUP ON ON OUTPATIENT: 1. Patient should follow-up with Dr. Silveira to discuss lap band DISCHARGE CONDITION: Stable. TIME SPENT ON DISCHARGE: Greater than 30 minutes. Vital Signs/I&Os Vital Signs Date Time Temp Pulse Resp B/P (MAP) Pulse Ox O2 Delivery O2 Flow Rate FiO2 09/27/20 11:49 97.0 70 18 142/72 (95) 98 Room Air I&O- Last 24 Hours up to 6 AM 09/27/20 06:00 Intake Total 500 ml Output Total 2320 ml Balance -1820 ml Laboratory Data Labs 24H Laboratory Tests 2 09/26/20 17:25: Bedside Glucose (Misc Panel) 336H 09/26/20 21:03: Bedside Glucose (Misc Panel) 276H 09/26/20 23:26: Bedside Glucose (Misc Panel) 228H 09/27/20 05:56: Bedside Glucose (Misc Panel) 119H 09/27/20 07:09: Immature Granulocyte % (Auto) 1.9, Neutrophils (%) (Auto) 52.3, Lymphocytes (%) (Auto) 27.3, Monocytes (%) (Auto) 13.7H, Eosinophils (%) (Auto) 4.2H, Basophils (%) (Auto) 0.6, Neutrophils # (Auto) 4.4, Lymphocytes # (Auto) 2.3, Monocytes # (Auto) 1.2H, Eosinophils # (Auto) 0.4, Basophils # (Auto) 0.1, Nucleated Red Blood Cells % (auto) 0.0, Anion Gap 4L, Glomerular Filtration Rate > 60.0, Calcium Level 7.9L, Magnesium Level 1.9, Total Bilirubin 1.1H, Aspartate Amino Transf (AST/SGOT) 70H, Alanine Aminotransferase (ALT/SGPT) 102H, Alkaline Phosphatase 87, C-Reactive Protein, Quantitative 4.81H, Total Protein 5.6L, Albumin 2.3L, Albumin/Globulin Ratio 0.7L 09/27/20 13:12: Bedside Glucose (Misc Panel) 183H CBC/BMP Laboratory Tests 09/27/20 07:09 FSBS Laboratory Tests Test 09/26/20 17:25 09/26/20 21:03 09/26/20 23:26 09/27/20 05:56 Range/Units Bedside Glucose (Misc Panel) 336 276 228 119 83-110 MG/DL Test 09/27/20 13:12 Range/Units Bedside Glucose (Misc Panel) 183 83-110 MG/DL Discharge Medications Scheduled Albuterol Sulfate (Proventil Hfa) 108 Mcg/Act Aer, 2 MCG INH Q4DP, (Reported) Allopurinol (Zyloprim) 300 Mg Tablet, 300 MG PO DAILY, (Reported) Amoxicillin/Potassium Clav (Augmentin 875-125 Tablet) 1 Each Tablet, 1 TAB PO BID Bupropion HCl (Wellbutrin Sr) 150 Mg Tabcr, 150 MG PO BID, (Reported) Conjugated Estrogens (Premarin) 0.3 Mg Tablet, 0.3 MG PO Q3RD, (Reported) Cyanocobalamin (Vitamin B-12) (Vitamin B-12) 500 Mcg Tab, 500 MCG PO DAILY, (Reported) Ergocalciferol (Vitamin D2) (Vitamin D2) 50,000 Units Cap, 50,000 UNITS PO 1XWK, (Reported) SUNDAYS Ezetimibe (Zetia) 10 Mg Tab, 10 MG PO DAILY, (Reported) Furosemide (Furosemide) 20 Mg Tab, 40 MG PO BID, (Reported) Hydrocodone/Acetaminophen (Hydrocodone-Acetamin 10-300 mg) 1 Tab Tab, 1 TAB PO Q6HP, (Reported) Insulin Glargine,Hum.rec.anlog (Lantus Solostar) 100 Unit/Ml Inj, 60 UNITS SC BID, (Reported) Insulin Lispro (Humalog) 100 Unit/Ml Inj, 1 DOSE SC TID, (Reported) sliding scale with meals Lisinopril (Lisinopril) 10 Mg Tab, 10 MG PO DAILY, (Reported) Lisinopril (Lisinopril) 10 Mg Tablet, 10 MG PO BID Loratadine (Claritin) 10 Mg Cap, 10 MG PO DAILY, (Reported) Mometasone Furoate Monohydrate (Nasonex) 120 [place]/17 Gm Naspr, 2 SPRAY NARES DAILY, (Reported) [place]-3/Dha/Epa/Fish Oil (Fish Oil 1,000 mg Softgel) 1 Each Capsule, 1 GM PO BID, (Reported) Potassium Chloride (Potassium Chloride) 8 Meq Tablet.er, 8 MEQ PO DAILY, (Reported) Scheduled PRN Fluticasone Propionate (Flovent Hfa) 220 Mcg/Act Aer, 2 PUFFS INH BID PRN for SHORTNESS OF BREATH, (Reported) Lidocaine (Lidoderm) 5% Adh..patch, 1 PATCH TD DAILY PRN for PAIN, (Reported) APPLY TO RIGHT KNEE Allergies Coded Allergies: phenazopyridine (Verified Allergy, Unknown, hives, 10/03/18) Sulfa (Sulfonamide Antibiotics) (Verified Adverse Reaction, Unknown, nausea/vomiting, 10/17/18) fenofibrate (Verified Adverse Reaction, Unknown, myalgia, 10/17/18) pseudoephedrine (Verified Adverse Reaction, Unknown, nausea/vomiting, 09/30 02/17) rosuvastatin (Verified Adverse Reaction, Unknown, myalgia, 10/17/18) Dunia Baker Sep 27, 2020 14:45
[2020-09-27 16:15] VITALS: BP 144/74
[2020-09-27] MEDS: FUROSEMIDE 40 MG TAB PO SCH (17:00)
[2020-09-27 20:00] VITALS: BP 145/75
[2020-09-27] MEDS ORDERED: RAMELTEON 8 MG TAB (ROZEREM) PO SCH ×2 (21:00)
[2020-09-27] MEDS: **NOTE PATIENT COMMENT** MISC XX SCH (21:13)
[2020-09-28] VITALS: BP 151/62
[2020-09-28] MEDS: FLUCONAZOLE 200 MG in IV 1 EA IV SCH (01:04)
[2020-09-28 04:00] VITALS: BP 160/82
[2020-09-28] MEDS: PIPERACILLIN/TAZOBACTAM SOD 2.25 GM in D5W MINI-BAG PLUS 50 ML IV SCH ×2 (06:13→10:42)
[2020-09-28] MEDS: **hydrALAZINE HCL** 25 MG TAB PO SCH (06:13)
[2020-09-28] MEDS: SODIUM CHLORIDE 0.9% INJ 10 ML SYR IV SCH (06:13)
[2020-09-28] MEDS: MORPHINE 2 MG/ML 1ML VIAL (J2270) IV PRN (06:38)
[2020-09-28 07:21] LABS: HEMATOCRIT 36.1 % (36.0-47.0); HEMOGLOBIN 11.8 g/dl (12.0-15.5); MEAN CORPUSCULAR HEMOGLOBIN 29.1 pg (27.0-33.0); MEAN CORPUSCULAR HGB CONC 32.7 g/dl (32.0-36.5); MEAN CORPUSCULAR VOLUME 88.9 fl (80.0-96.0); PLATELET COUNT, AUTOMATED 229 10^3/uL (150-450); RED BLOOD COUNT 4.06 10^6/uL (4.00-5.40); WHITE BLOOD COUNT 9.8 10^3/uL (4.0-10.0)
[2020-09-28 07:27] VITALS: BP 132/65
[2020-09-28 07:43] LABS: CALCIUM LEVEL 8.9 MG/DL (8.8-10.2); CREATININE FOR GFR 1.13 MG/DL (0.55-1.30); GLOMERULAR FILTRATION RATE 50.4 (>39); POTASSIUM SERUM 3.2 MEQ/L (3.5-5.1)
[2020-09-28 08:00] VITALS: BP 145/70
[2020-09-28] MEDS ORDERED: LACTOBACILLUS ACIDOPHILUS CAP (BACID) PO SCH (08:00)
[2020-09-28] MEDS ORDERED: POTASSIUM CHLORIDE 10 MEQ SR TABLET PO ONE (09:00)
[2020-09-28] MEDS: OMEGA-3 1000MG CAPSULE PO SCH ×2 (09:00→09:17)
[2020-09-28] MEDS: PANTOPRAZOLE 40MG VIAL (C9113 PER 1) IV SCH (09:12)
[2020-09-28] MEDS: LEVEMIR (INSULIN DETEMIR) 1 UNITS/0.01ML SC SCH (09:14)
[2020-09-28] MEDS: HumaLOG INSULIN (NovoLOG) PER UNIT SC SCH ×3 (09:15→11:55)
[2020-09-28] MEDS: ENOXAPARIN 40MG/0.4ML SYRINGE (J1650 PER 10MG) SC SCH (09:16)
[2020-09-28] MEDS: FUROSEMIDE 40 MG TAB PO SCH (09:16)
[2020-09-28 09:17] VITALS: BP 145/70
[2020-09-28] MEDS: allopurinoL 300 MG TAB PO SCH (09:18)
[2020-09-28] MEDS: buPROPion **SR TABLET** (ZYBAN) 150MG PO SCH (09:18)
[2020-09-28] MEDS: EZETIMIBE 10 MG TAB (ZETIA) PO SCH (09:18)
[2020-09-28] MEDS: FLUTICASONE PROP 0.05% NASAL SPRAY 16 GM (FLONASE) NARES SCH (09:19)
[2020-09-28] MEDS ORDERED: RISATAB3 PO (09:36)
[2020-09-28 11:12] VITALS: BP 128/74
--- NOTE | 2020-09-28 13:10 | IPNPDOC ---
Text Note Date of Service The patient was seen on 09/28/20. NOTE Subjective: Patient was seen and examined this morning at bedside. She states she is feeling well. She reports tolerating regular breakfast without nausea, vomiting, or worsening abdominal pain. She feels ready to go home. Blood pressure has been well controlled. Objective: VITAL SIGNS: see below GENERAL: Alert, comfortable, in no acute distress HEENT: Normocephalic, atraumatic, sclera anicteric, moist mucous membranes CARDIOVASCULAR: Regular rate and rhythm, normal S1 and S2. No murmurs, rubs, or gallops RESPIRATORY: Clear to auscultation bilaterally with equal air entry bilaterally. No wheezing, rhonchi, or rales. ABDOMEN: Soft, nondistended, bowel sounds present, tender to palpation over the epigastric area EXTREMITIES: No cyanosis or edema. Pulses 2+/4 in bilateral upper and lower extremities NEUROLOGIC: No focal deficits appreciated PSYCHIATRIC: Mood and affect appropriate Assessment/Plan: 69-year-old female with a PMHx of Gastric bypass (8 years ago; s/p Revision to remove infected port 8 months ago), who presented to the emergency room with complaints of vomiting blood and 10 out of 10 in severity, sharp, consistent abdominal pain. There is a suspicion of a perforated duodenal ulcer and patient underwent exploratory robotic laparoscopy and was found to have an intra-abdominal abscess surrounding her lap band procedure. Postoperatively, patient was found to have significantly elevated blood pressure and hospitalist service was consulted for assistance in the management of her BP. # Intra-abdominal abscess - s/p Exploratory laparoscopy with abdominal washout, takedown of adhesions, evacuation of phlegmon, removal of large portion of Lap-Band tubing (POD#8) - continue antibiotics per surgery. will add probiotic to help prevent diarrhea side effect. - continue adjusted pain medications - s/p TPN; patient has been tolerating regular diet - Currently being managed by primary surgical team # HTN - BP improved - s/p Nicardipine drip and IV labetalol. s/p IV fluids - continue Lisinopril, furosemide, and hydralazine PO # DM2 - continue ISS ACHS, consistent carb when diet is advanced # DLP - continue Zetia and [place] 3 fatty acids # Gout - continue Allopurinol # Depression - continue Bupropion # CKD3 - Creatinine remains stable at this time; baseline of 1.2-1.3 - Avoid nephrotoxic medications - s/p IV fluids # Chronic back pain - continue Lidocaine patch # GI prophylaxis - continue Protonix # DVT prophylaxis: SC Lovenox Disposition: pending discharge by primary service Attending Attestation: Patient independently seen and examined. I have discussed in detail with the resident / student the findings and plan of treatment as documented by the resident / student. I agree with their findings and treatment plan and have edited their documentation. I will continue to follow the patient during this hospital stay. VS,Fishbone, I+O VS, Fishbone, I+O Laboratory Tests 09/28/20 07:09 Vital Signs Date Time Temp Pulse Resp B/P (MAP) Pulse Ox O2 Delivery O2 Flow Rate FiO2 09/28/20 11:12 97.1 72 18 128/74 (92) 98 Room Air I&O- Last 24 Hours up to 6 AM 09/28/20 06:00 Intake Total 800 ml Output Total 405 ml Balance 395 ml OMAR BURNETT D.O. Sep 28, 2020 13:10 CLARE CRAFT MD Sep 29, 2020 09:20
[2020-09-28] MEDS ORDERED: HumaLOG INSULIN (NovoLOG) PER UNIT SC SCH (21:00)
== END 2020-09-28 15:45 | disposition home or self-care (01) | DRG 326 ==
LOC: M ED 15:20 → EDBD 15:20 → M SDC 19:28 → M ED INP 21:11 → M ICU 23:52 → M PCU 09-22 16:00
PROVIDERS: ADMIT Surgery; ATTEND Surgery
PROC: 0W9G40Z Drainage of Peritoneal Cavity with Drainage Device, Percutaneous Endoscopic Approach (ICD-10-PCS; 2020-09-19)
PROC: 8E0W4CZ Robotic Assisted Procedure of Trunk Region, Percutaneous Endoscopic Approach (ICD-10-PCS; 2020-09-19)
PROC: 0DW64CZ Revision of Extraluminal Device in Stomach, Percutaneous Endoscopic Approach (ICD-10-PCS; principal; 2020-09-19 18:28)
PROC: 02HV33Z Insertion of Infusion Device into Superior Vena Cava, Percutaneous Approach (ICD-10-PCS; 2020-09-21)
DX: K95.01 Infection due to gastric band procedure (principal); K65.1 Peritoneal abscess; K26.1 Acute duodenal ulcer with perforation; G93.40 Encephalopathy, unspecified; I16.0 Hypertensive urgency; N18.30 Chronic kidney disease, stage 3 unspecified; E11.9 Type 2 diabetes mellitus without complications; E66.9 Obesity, unspecified; Z68.34 Body mass index [BMI] 34.0-34.9, adult; E78.5 Hyperlipidemia, unspecified; M54.5 Low back pain; M10.9 Gout, unspecified; Z79.899 Other long term (current) drug therapy; Z79.4 Long term (current) use of insulin; Z88.2 Allergy status to sulfonamides; Z88.8 Allergy status to other drugs, medicaments and biological substances; J44.9 Chronic obstructive pulmonary disease, unspecified; F32.9 Major depressive disorder, single episode, unspecified; I12.9 Hypertensive chronic kidney disease with stage 1 through stage 4 chronic kidney disease, or unspecified chronic kidney disease

== ENCOUNTER 2020-10-01 10:16 | Inpatient (IN) | payer MEDICARE ==
[~2020-10-01] VITALS: Ht 154.9 cm; Wt 90.6 kg
[~2020-10-01 10:16] MED LIST changes: +ESTR3TA PO; +RISATAB3 PO
[2020-10-01] MEDS ORDERED: ONDANSETRON 4MG/2ML VIAL IV ONE (10:50)
[2020-10-01] MEDS ORDERED: MORPHINE 4 MG/ML 1ML VIAL/SYRINGE (J2270) IV ONE ×2 (10:50→17:45)
--- NOTE | 2020-10-01 11:32 | REP ---
INDICATION: sev upper pain, duodenal perf 09/19/20. COMPARISON: Portable chest dated 09/19/2020. TECHNIQUE: Upright PA view of the chest, upright AP abdomen, 2 supine views of the abdomen. FINDINGS: Upright AP chest: Comparison is 09/19/2020. The right costophrenic angle is effaced as an interval change suggestive of a small right pleural effusion. The remainder of the lung dawson are clear. Cardiac size is normal. The jes, mediastinum, and skeletal structures are unremarkable. There is a lap band at the gastroesophageal junction. Supine and upright abdomen: There is opaque intraluminal bowel contrast in the colonic splenic flexure, descending colon and sigmoid colon. There is no bowel distention or obstruction. There is a lap band at the gastroesophageal junction. There is no free subdiaphragmatic air. IMPRESSION: PA chest: Probable small right pleural effusion. Supine and upright abdomen: No free subdiaphragmatic air. No bowel distention or obstruction. Intraluminal bowel contrast in the distal colon. Lap band at the gastroesophageal junction. <Electronically signed by Bear Leach > 10/01/20 1126
[2020-10-01 11:45] LABS: BASO # 0.1 10^3/uL (0.0-0.2); BASO % 0.3 % (0.0-1.0); EOS # 0.1 10^3/uL (0.0-0.5); EOS % 0.3 % (0.0-3.0); HEMATOCRIT 36.7 % (36.0-47.0); LYMPH # 1.4 10^3/uL (1.5-5.0); LYMPH % 7.8 % (24.0-44.0); MEAN CORPUSCULAR HEMOGLOBIN 29.5 pg (27.0-33.0); MEAN CORPUSCULAR HGB CONC 32.7 g/dl (32.0-36.5); MEAN CORPUSCULAR VOLUME 90.2 fl (80.0-96.0); MONO # 1.2 10^3/uL (0.0-0.8); MONO % 6.8 % (2.0-8.0); NEUTROPHILS # 14.6 10^3/uL (1.5-8.5); NEUTROPHILS % 83.7 % (36.0-66.0); PLATELET COUNT, AUTOMATED 268 10^3/uL (150-450); RED BLOOD COUNT 4.07 10^6/uL (4.00-5.40); WHITE BLOOD COUNT 17.4 10^3/uL (4.0-10.0)
[2020-10-01] MEDS ORDERED: ISOVUE-370 76% 100ML VIAL As Ordered ONE (11:51)
[2020-10-01 12:15] LABS: ALBUMIN 2.7 GM/DL (3.2-5.2); BILIRUBIN,DIRECT 0.7 MG/DL (0.0-0.2); BILIRUBIN,TOTAL 1.2 MG/DL (0.2-1.0); TOTAL PROTEIN 7.4 GM/DL (6.4-8.2)
[2020-10-01] MEDS ORDERED: PIPERACILLIN/TAZOBACTAM SOD 3.375 GM in D5W MINI-BAG PLUS 50 ML IV ONE (12:15)
[2020-10-01] MEDS ORDERED: NS 1,000 ML IV ONE (12:15)
[2020-10-01 12:18] LABS: CK-MB VALUE MASS 2.2 NG/ML (<3.6); MB/CK RELATIVE INDEX 2.62 (< OR =4); TROPONIN I 0.02 NG/ML (< 0.10)
--- NOTE | 2020-10-01 12:47 | REP ---
INDICATION: severe abd pain, constip, duod perf 09/19/20. COMPARISON: 09/21/2020, 09/19/2020. TECHNIQUE: Bolus 100 mL Isovue 370 scanning through the abdomen and pelvis with coronal and sagittal reconstructions. FINDINGS: CT abdomen: The small right pleural effusion with some minor dependent atelectatic changes posterior right lower lung zone. Left base was clear. Heart size unchanged. No pericardial thickening or effusion. Some coronary calcifications are noted as well as atherosclerotic calcifications of the lower thoracic and abdominal aorta but without aneurysm or dissection. There is a lap band device again noted and unchanged. Appearance of the distal esophagus is unchanged. There is no hepatic mass or biliary dilatation. No visible hepatic cyst. There is only trace ascites adjacent to the liver posteriorly. Gallbladder is distended there is some hyperdense bile layering within. Region of the pancreatic head and duodenum shows heterogeneous density. There are no air bubbles adjacent to the duodenum. There is 1 air bubble in the duodenal bulb which is normal. Heterogeneous or phlegmonous change about the duodenum at the inferior margin of the pancreatic head is again noted but no gross perforation. Third portion the duodenum without stricture. Body and tail the pancreas grossly normal. The head shows some mild hypodensity. No biliary dilatation or calcification in the pancreatic head region. Adrenal glands unchanged. Kidneys symmetric without hydronephrosis. No splenomegaly or focal splenic lesion. Stool and gas in the right and transverse colon with the contrast in the left colon but no colitis or diverticulitis. Small bowel loops without dilatation and mostly fluid-filled. No air-fluid levels or signs of obstruction. No perienteric inflammatory change. There is been interval removal of the percutaneous abdominal drain seen 09/21/2020 prior. No periaortic, other retroperitoneal or mesenteric pathologic size nodes with a few scattered small normal nodes. The lung window review of all CT slices in the abdomen and pelvis shows no perforation or free air in today's study. Bones in the spine, their posterior elements lower ribs are unchanged. CT pelvis: Sacrum, SI joints, iliac bones, acetabulae, hips and ischia show some degenerative changes but no destructive lesion or fractures. Ureters show normal course the bladder without dilatation or stone. No bladder stone, mass or wall thickening. Distal left colon, sigmoid and rectum are without colitis or diverticulitis. Small bowel loops in the pelvis were unremarkable. There is moderate retained stool distending the cecum and right colon in the pelvis and this is seen contiguous to the mid transverse colon representing some degree of constipation. I do not see inflammatory change about the cecum or adenopathy. Appendix is not directly visualized. Uterus is absent the vaginal cuff intact no pelvic mass or adenopathy no ventral or inguinal hernia nor inguinal adenopathy. IMPRESSION: 1. Interval removal of the percutaneous abdominal drain since 09/21/2020 exam. No evidence of free air. Some improvement in the inflammatory changes about the 2nd portion of duodenum and pancreatic head. Is there any evidence for pancreatitis on laboratory results? I do not see pseudocyst, abscess, perforation or free air. 2. Trace amount of ascites about the posterior margin of the liver. No generalized ascites in the abdomen or pelvis. 3. Gallbladder mildly distended with layered hyperdense bile within. No biliary dilatation. 4. Small bowel loops unremarkable. Colon shows some constipation from cecum to mid transverse colon without stricture or mass and no evidence of colitis or diverticulitis. I do not see an appendix but there is no definite inflammatory change about the cecum. 5. No renal, ureteral or bladder stone. No hydronephrosis. <Electronically signed by Tu Kinsey > 10/01/20 0302
[2020-10-01 13:08] LABS: VENOUS BASE EXCESS 4.8 (-2.0-2.0); VENOUS HCO3 29.9 MEQ/L (23.0-27.0); VENOUS O2 SATURATION 88.1 % (60.0-80.0); VENOUS PARTIAL PRESSURE CO2 46.5 mmHg (38.0-50.0); VENOUS PARTIAL PRESSURE O2 52.4 mmHg (30.0-50.0); VENOUS PH 7.426 UNITS (7.330-7.430); VENOUS STANDARD HCO3 28.5 MEQ/L; VENOUS TOTAL CO2 31.3 MEQ/L (24.0-28.0)
[2020-10-01] MEDS ORDERED: LEVEMIR (INSULIN DETEMIR) 1 UNITS/0.01ML SC ONE (13:15)
[2020-10-01] MEDS ORDERED: AUGM875T28 PO (13:19)
[2020-10-01] MEDS ORDERED: HYDR-3713 PO (13:19)
[2020-10-01] MEDS ORDERED: DEXTROSE 50% 50 ML SYRINGE IV PRN (13:45)
[2020-10-01] MEDS ORDERED: ALBUTEROL 90 MCG/ACT 8GM HFA INHALER INH PRN (13:45)
[2020-10-01] MEDS ORDERED: GLUCAGON INJ 1MG VIAL SC PRN (13:45)
[2020-10-01] MEDS ORDERED: GLUCOSE 4GM CHEW TABLET PO PRN (13:45)
[2020-10-01] MEDS ORDERED: FLUTICASONE HFA 220 MCG 12 GM INHALER (FLOVENT) INH PRN (13:45)
[2020-10-01] MEDS ORDERED: KCL 40MEQ IN D5/0.45NS 1000ML 1,000 ML IV SCH ×2 (13:45→16:30)
[2020-10-01 13:49] LABS: RSV AMPLIFICATION NEGATIVE (NEGATIVE)
[2020-10-01] MEDS ORDERED: SIMETHICONE 80MG CHEW TAB PO PRN (14:05)
[2020-10-01] MEDS ORDERED: SENOKOT S TAB PO PRN (14:05)
[2020-10-01] MEDS ORDERED: GI COCKTAIL 50ML BTL(HYOSCYAMINE/MAALOX/LIDOCAINE VISCOUS)(1:3:1) PO PRN (14:05)
[2020-10-01] MEDS ORDERED: BISACODYL 10 MG SUPP PR PRN (14:05)
[2020-10-01 14:13] LABS: C REACTIVE PROTEIN QUANTITATIV 13.9 MG/DL (0.00-0.30)
[2020-10-01 15:05] LABS: ERYTHROCYTE SEDIMENTATION RATE 86 mm/hr (0-30)
[2020-10-01] MEDS: ACETAMINOPHEN 500 MG TAB PO SCH ×2 (16:00→21:14)
[2020-10-01] MEDS: MORPHINE 4 MG/ML 1ML VIAL/SYRINGE (J2270) IV PRN (17:36)
[2020-10-01 18:09] VITALS: BP 119/83
--- NOTE | 2020-10-01 18:21 | HPEPDOC ---
[facility] Medical History & Physical Date of Admission Oct 01, 2020 Date of Service: Oct 01, 2020 History and Physical H&P dictated job # [id number]. 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 Recently admitted September 19 to September 28 due to intra-abdominal abscess found on next laparoscopy requiring abdominal washout and removal of a large section of the LAP-BAND tubing. Patient did not have any duodenal ulcer p erforation and after treatment with IV antibiotics and 8 days inpatient stay was discharged home with Augmentin since hospital discharge, she had complained of right upper quadrant stabbing abdominal pain accompanied with diarrhea 2-3 bowel movements a day, decreased appetite without fever, chills and was found in the ER today to have a white count of 17,[address] abdomen and pelvis showing impr ovement from previous with no localized abscess. General surgeon, Dr. Londono recommended IV antibiotics, bowel rest and IV fluids and admission to the hospital service. History of intra-abdominal abscess status post exploratory laparoscopy with abdominal washout and removal of a large section of the LAP-BAND tubing with persistent abdominal pain. -Repeat CT has no intra-abdominal collection. Conservative management for the low-grade temperature, elevated white count with IV antibiotics, bowel rest IV fluids and when necessary pain medications And surgical consult. Vital Signs Vital Signs Date Time Temp Pulse Resp B/P (MAP) Pulse Ox O2 Delivery O2 Flow Rate FiO2 10/01/20 18:09 100.3 92 17 119/83 (95) 92 Room Air Laboratory Data Labs 24H Laboratory Tests 2 10/01/20 10:36: Immature Granulocyte % (Auto) 1.1, Neutrophils (%) (Auto) 83.7H, Lymphocytes (%) (Auto) 7.8L, Monocytes (%) (Auto) 6.8, Eosinophils (%) (Auto) 0.3, Basophils (%) (Auto) 0.3, Neutrophils # (Auto) 14.6H, Lymphocytes # (Auto) 1.4L, Monocytes # (Auto) 1.2H, Eosinophils # (Auto) 0.1, Basophils # (Auto) 0.1, Nucleated Red Blood Cells % (auto) 0.0, Erythrocyte Sedimentation Rate 86H, Lactic Acid Level 1.6, Total Bilirubin 1.2H, Direct Bilirubin 0.7H, Aspartate Amino Transf (AST/SGOT) 40H, Alanine Aminotransferase (ALT/SGPT) 67, Alkaline Phosphatase 138H, Total Protein 7.4, Albumin 2.7L, Albumin/Globulin Ratio 0.6L, Lipase 172 10/01/20 10:40: Total Creatine Kinase 84, Creatine Kinase MB 2.2, Creatine Kinase MB Relative Index 2.62, Troponin I 0.02, C-Reactive Protein, Quantitative 13.90H 10/01/20 11:35: POC Glucose (Misc Panel) 353H, POC Sodium (Misc Panel) 132L, POC Potassium (Misc Panel) 4.0, POC Chloride (Misc Panel) 92L, POC Total CO2 (Misc Panel) 30.0H, POC Blood Urea Nitrogen (Misc Panel 14, POC Ionized Calcium (Misc Panel) 4.4L, POC Creatinine (Misc Panel) 1.0, POC Hematocrit (Misc Panel) 38.0 10/01/20 12:48: Blood Gas Bicarbonate Standard 28.5, Venous Blood pH 7.426, Venous Blood Partial Pressure CO2 46.5, Venous Blood Partial Pressure O2 52.4H, Venous Blood Total Carbon Dioxide 31.3H, Venous Blood HCO3 29.9H, Venous Blood Oxygen Saturation 88.1H, Venous Blood Base Excess 4.8H, Coronavirus (COVID-19)(PCR) NEGATIVE, Influenza Type A (RT-PCR) NEGATIVE, Influenza Type B (RT-PCR) NEGATIVE, Respiratory Syncytial Virus (PCR) NEGATIVE 10/01/20 14:25: Procalcitonin 1.03 10/01/20 15:40: Bedside Glucose (Misc Panel) 284H CBC/BMP Laboratory Tests 10/01/20 10:36 Microbiology Microbiology 10/01/20 Blood Culture, Received Pending 10/01/20 Blood Culture, Received Pending Home Medications Scheduled Allopurinol (Zyloprim) 300 Mg Tablet, 300 MG PO DAILY Amoxicillin/Potassium Clav (Augmentin 875-125 Tablet) 1 Each Tablet, 1 TAB PO BID Bupropion HCl (Wellbutrin Sr) 150 Mg Tabcr, 150 MG PO BID Conjugated Estrogens (Premarin) 0.3 Mg Tablet, 0.3 MG PO Q3RD Cyanocobalamin (Vitamin B-12) (Vitamin B-12) 500 Mcg Tab, 500 MCG PO DAILY Ergocalciferol (Vitamin D2) (Vitamin D2) 50,000 Units Cap, 50,000 UNITS PO 1XWK SUNDAYS Ezetimibe (Zetia) 10 Mg Tab, 10 MG PO DAILY Furosemide (Furosemide) 20 Mg Tab, 40 MG PO BID Insulin Glargine,Hum.rec.anlog (Lantus Solostar) 100 Unit/Ml Inj, 48 UNITS SC BID Insulin Lispro (Humalog) 100 Unit/Ml Inj, 1 DOSE SC TID sliding scale with meals Lisinopril (Lisinopril) 10 Mg Tab, 10 MG PO DAILY Loratadine (Claritin) 10 Mg Cap, 10 MG PO DAILY Mometasone Furoate Monohydrate (Nasonex) 120 [place]/17 Gm Naspr, 2 SPRAY NARES DAILY [place]-3/Dha/Epa/Fish Oil (Fish Oil 1,000 mg Softgel) 1 Each Capsule, 1 GM PO BID Potassium Chloride (Potassium Chloride) 8 Meq Tablet.er, 8 MEQ PO DAILY Scheduled PRN Albuterol Sulfate (Proventil Hfa) 108 Mcg/Act Aer, 2 PUFF INH Q4H PRN for SOB/WHEEZING Fluticasone Propionate (Flovent Hfa) 220 Mcg/Act Aer, 2 PUFFS INH BID PRN for SHORTNESS OF BREATH Hydrocodone/Acetaminophen (Hydrocodone-Acetamin 5-325 mg) 1 Each Tablet, 1 TAB PO Q6H PRN for PAIN Lidocaine (Lidoderm) 5% Adh..patch, 1 PATCH TD DAILY PRN for PAIN APPLY TO RIGHT KNEE Allergies Coded Allergies: phenazopyridine (Verified Allergy, Unknown, hives, 10/03/18) Sulfa (Sulfonamide Antibiotics) (Verified Adverse Reaction, Unknown, nausea/vomiting, 10/17/18) fenofibrate (Verified Adverse Reaction, Unknown, myalgia, 10/17/18) pseudoephedrine (Verified Adverse Reaction, Unknown, nausea/vomiting, 10/17/18) rosuvastatin (Verified Adverse Reaction, Unknown, myalgia, 10/17/18) A-FIB/CHADSVASC A-FIB History Current/History of A-Fib/PAF?: No Current PO Anticoag Therapy: No RONIT GOODMAN MD Oct 01, 2020 18:18
[2020-10-01] MEDS: ONDANSETRON 4MG/2ML VIAL IV SCH (19:01)
[2020-10-01] MEDS: SUCRALFATE 1 GM TAB PO SCH (19:01)
[2020-10-01] MEDS: HumaLOG INSULIN (NovoLOG) PER UNIT SC SCH (19:02)
[2020-10-01] MEDS ORDERED: PANTOPRAZOLE 40MG VIAL (C9113 PER 1) IV SCH (21:00)
--- NOTE | 2020-10-01 21:10 | REPVR ---
PROCEDURE INFORMATION: Exam: MR Abdomen Without Contrast, MRCP Exam date and time: 10/01/2020 8:37 PM Age: 70 years old Clinical indication: Other: Elevated bili R/O choledocholithiasis TECHNIQUE: Imaging protocol: MR of the abdomen without contrast. Exam focused on the bile ducts and pancreatic ducts. 3D MRCP images were acquired and processed without radiologist supervision. COMPARISON: CT ABD/PEL W/IV CONTRAST ONLY 10/01/2020 11:52 AM FINDINGS: Liver: No mass. Gallbladder and bile ducts: Normal gallbladder and biliary tree. Pancreas: There is peripancreatic inflammatory stranding and fluid, consistent with acute pancreatitis. Intraperitoneal space: Scant ascites. IMPRESSION: 1. There is peripancreatic inflammatory stranding and fluid, consistent with acute pancreatitis. 2. Normal gallbladder and biliary tree. 3. Scant ascites. Electronically signed by: Devon Conde On 10/01/2020 21:11:00 PM
[2020-10-01] MEDS: PIPERACILLIN/TAZOBACTAM SOD 4.5 GM in D5W MINI-BAG PLUS 50 ML IV SCH (21:14)
[2020-10-01] MEDS: LEVEMIR (INSULIN DETEMIR) 1 UNITS/0.01ML SC SCH (21:15)
[2020-10-01 22:00] VITALS: BP 139/78
[2020-10-02] MEDS: SUCRALFATE 1 GM TAB PO SCH ×5 (00:20→20:35)
[2020-10-02] MEDS: HumaLOG INSULIN (NovoLOG) PER UNIT SC SCH ×5 (00:21→20:54)
[2020-10-02] MEDS: PIPERACILLIN/TAZOBACTAM SOD 4.5 GM in D5W MINI-BAG PLUS 50 ML IV SCH ×4 (02:39→20:35)
[2020-10-02 06:00] VITALS: BP 149/66
[2020-10-02] MEDS: ONDANSETRON 4MG/2ML VIAL IV SCH ×3 (06:00→13:15)
[2020-10-02] MEDS: oxyCODONE 5MG TAB PO PRN (06:23)
[2020-10-02 07:08] LABS: BASO # 0.1 10^3/uL (0.0-0.2); BASO % 0.4 % (0.0-1.0); EOS # 0.2 10^3/uL (0.0-0.5); HEMATOCRIT 35.6 % (36.0-47.0); HEMOGLOBIN 11.2 g/dl (12.0-15.5); LYMPH # 1.9 10^3/uL (1.5-5.0); LYMPH % 11.8 % (24.0-44.0); MEAN CORPUSCULAR HEMOGLOBIN 28.7 pg (27.0-33.0); MEAN CORPUSCULAR HGB CONC 31.5 g/dl (32.0-36.5); MEAN CORPUSCULAR VOLUME 91.3 fl (80.0-96.0); MONO # 1.3 10^3/uL (0.0-0.8); MONO % 7.9 % (2.0-8.0); NEUTROPHILS # 12.8 10^3/uL (1.5-8.5); NEUTROPHILS % 78.2 % (36.0-66.0); PLATELET COUNT, AUTOMATED 294 10^3/uL (150-450); WHITE BLOOD COUNT 16.3 10^3/uL (4.0-10.0)
[2020-10-02 07:31] LABS: CREATININE FOR GFR 1.07 MG/DL (0.55-1.30); GLOMERULAR FILTRATION RATE 53.7 (>39); POTASSIUM SERUM 4.3 MEQ/L (3.5-5.1)
[2020-10-02 07:32] LABS: ALBUMIN 2.3 GM/DL (3.2-5.2); BILIRUBIN,TOTAL 0.9 MG/DL (0.2-1.0); CALCIUM LEVEL 8.7 MG/DL (8.8-10.2); CHOLESTEROL RISK RATIO 4.688 (<5); TOTAL PROTEIN 6.3 GM/DL (6.4-8.2)
[2020-10-02] MEDS: LEVEMIR (INSULIN DETEMIR) 1 UNITS/0.01ML SC SCH ×2 (08:21→20:54)
[2020-10-02] MEDS: PANTOPRAZOLE 40MG TAB (PROTONIX) PO SCH ×2 (08:22→20:35)
[2020-10-02] MEDS: ACETAMINOPHEN 500 MG TAB PO SCH ×3 (08:22→20:35)
[2020-10-02] MEDS: CYANOCOBALAMIN 500 MCG TAB PO SCH (08:22)
[2020-10-02] MEDS: LORATADINE 10 MG TAB PO SCH (08:22)
--- NOTE | 2020-10-02 09:02 | CR.PDOC ---
General Surgery Consultation Date of Consultation 10/02/20 History and Physical CONSULT REPORT FOR: hospitalist service REASON FOR CONSULTATION: postop return after laparoscopic drainage of abscess, abdominal pain HISTORY OF PRESENT ILLNESS: Patient is a 70 F with recent hospitalization and discharge for PAST MEDICAL HISTORY: 1. . PAST SURGICAL HISTORY: INCLUDES: 1. . PREVIOUS ANESTHESIA REACTIONS: ALLERGIES: Please see below. FAMILY HISTORY: . HOME MEDICATIONS: Please see below. REVIEW OF SYSTEMS: GENERAL: [Denies chills, reports weight gain, reports feeling febrile yesterday]. HEENT: [Denies blurred vision and double vision. Denies ear symptoms. Denies hoarseness]. NECK: Denies any neck pain]. CARDIOVASCULAR: [Denies chest pain and palpitations]. MUSCULOSKELETAL: [Denies arthralgias, back pain and thrombophlebitis]. SKIN: [Denies rash]. NEUROLOGIC: [Denies headache, stroke and transient ischemic attack]. PSYCHIATRIC: [Denies anxiety and depression]. ENDOCRINE: [Denies thyroid disease]. HEMATOLOGY/ONCOLOGY: [Denies bleeding or clotting disorder]. HEART: [Denies any chest pains, palpitations, paroxysmal dyspnea, orthopnea]. PULMONARY: [Denies chronic cough, dyspnea and wheezing]. GASTROINTESTINAL: [Denies rectal bleeding, family history of colon cancer, constipation, diarrhea, dysphagia, heartburn and jaundice]. GENITOURINARY: [Denies dysuria, frequency, hematuria and nocturia]. ENDOCRINE: [Denies polydipsia, polyphagia, polyuria, heat or cold intolerance]. INFECTIOUS: [Denies any recent upper respiratory tract infection, UTI, need for use of antibiotics]. NUTRITION: [Reports good appetite]. PHYSICAL EXAMINATION: VITALS SIGNS: Please see below. GENERAL APPEARANCE:[Patient seen, laying in bed, awake, alert, and oriented. Comfortable, in no acute distress]. SKIN: [Warm and moist]. HEENT: [Normocephalic, atraumatic. [place] palpebral conjunctiva, anicteric sclerae. Lips and mucosa appear moist]. NECK: [Supple, no thyromegaly. No obvious jugular venous distention]. LUNGS: [Clear to auscultation bilaterally. No wheezing appreciated]. HEART: [No chest wall abnormalities. Regular rate and rhythm with no murmurs appreciated]. ABDOMEN: Abdomen is , soft, . [No hepatosplenomegaly. No umbilical or groin herniations, nondistended. No noticeable rebound or guarding. No grimacing with palpation. No rebound tenderness. No masses appreciated]. EXTREMITIES: [Extremities have no deformities. No edema identified] ANCILLARIES: . LABORATORY DATA: Please see below. IMAGING STUDIES: CT scan abdomen and pelvis MRI abdomen IMPRESSION AND PLAN: infection/abscess/phlegmon related to retained lap band abdominal pain Vital Signs Vital Signs Date Time Temp Pulse Resp B/P (MAP) Pulse Ox O2 Delivery O2 Flow Rate FiO2 10/02/20 08:24 149/68 10/02/20 06:53 18 Room Air 10/02/20 06:00 96.8 74 94 I&Os I&O- Last 24 Hours up to 6 AM 10/02/20 06:00 Intake Total 2120 ml Output Total 0 ml Balance 2120 ml Laboratory Data Labs 24H Laboratory Tests 2 10/01/20 10:36: Immature Granulocyte % (Auto) 1.1, Neutrophils (%) (Auto) 83.7H, Lymphocytes (%) (Auto) 7.8L, Monocytes (%) (Auto) 6.8, Eosinophils (%) (Auto) 0.3, Basophils (%) (Auto) 0.3, Neutrophils # (Auto) 14.6H, Lymphocytes # (Auto) 1.4L, Monocytes # (Auto) 1.2H, Eosinophils # (Auto) 0.1, Basophils # (Auto) 0.1, Nucleated Red Blood Cells % (auto) 0.0, Erythrocyte Sedimentation Rate 86H, Lactic Acid Level 1.6, Total Bilirubin 1.2H, Direct Bilirubin 0.7H, Aspartate Amino Transf (AST/SGOT) 40H, Alanine Aminotransferase (ALT/SGPT) 67, Alkaline Phosphatase 138H, Total Protein 7.4, Albumin 2.7L, Albumin/Globulin Ratio 0.6L, Lipase 172 10/01/20 10:40: Total Creatine Kinase 84, Creatine Kinase MB 2.2, Creatine Kinase MB Relative Index 2.62, Troponin I 0.02, C-Reactive Protein, Quantitative 13.90H 10/01/20 11:35: POC Glucose (Misc Panel) 353H, POC Sodium (Misc Panel) 132L, POC Potassium (Misc Panel) 4.0, POC Chloride (Misc Panel) 92L, POC Total CO2 (Misc Panel) 30.0H, POC Blood Urea Nitrogen (Misc Panel 14, POC Ionized Calcium (Misc Panel) 4.4L, POC Creatinine (Misc Panel) 1.0, POC Hematocrit (Misc Panel) 38.0 10/01/20 12:48: Blood Gas Bicarbonate Standard 28.5, Venous Blood pH 7.426, Venous Blood Partial Pressure CO2 46.5, Venous Blood Partial Pressure O2 52.4H, Venous Blood Total Carbon Dioxide 31.3H, Venous Blood HCO3 29.9H, Venous Blood Oxygen Saturation 88.1H, Venous Blood Base Excess 4.8H, Coronavirus (COVID-19)(PCR) NEGATIVE, Influenza Type A (RT-PCR) NEGATIVE, Influenza Type B (RT-PCR) NEGATIVE, Respiratory Syncytial Virus (PCR) NEGATIVE 10/01/20 14:25: Procalcitonin 1.03 10/01/20 15:40: Bedside Glucose (Misc Panel) 284H 10/01/20 18:52: Bedside Glucose (Misc Panel) 260H 10/01/20 21:04: Bedside Glucose (Misc Panel) 207H 10/01/20 23:58: Bedside Glucose (Misc Panel) 208H 10/02/20 05:55: Bedside Glucose (Misc Panel) 219H 10/02/20 06:20: Immature Granulocyte % (Auto) 0.7, Neutrophils (%) (Auto) 78.2H, Lymphocytes (%) (Auto) 11.8L, Monocytes (%) (Auto) 7.9, Eosinophils (%) (Auto) 1.0, Basophils (%) (Auto) 0.4, Neutrophils # (Auto) 12.8H, Lymphocytes # (Auto) 1.9, Monocytes # (Auto) 1.3H, Eosinophils # (Auto) 0.2, Basophils # (Auto) 0.1, Nucleated Red Blood Cells % (auto) 0.0, Anion Gap 6L, Glomerular Filtration Rate 53.7, Calcium Level 8.7L, Total Bilirubin 0.9, Aspartate Amino Transf (AST/SGOT) 24, Alanine Aminotransferase (ALT/SGPT) 46, Alkaline Phosphatase 124H, Total Protein 6.3L, Albumin 2.3L, Albumin/Globulin Ratio 0.6L, Triglycerides Level 186H, Total Cholesterol 211H, LDL Cholesterol 129H, Non-HDL Cholesterol (LDL + VLDL) 166, Total HDL Cholesterol 45, Cholesterol/HDL Ratio 4.688, Amylase Level 19L, Lipase 69L CBC/BMP Laboratory Tests 10/01/20 10:36 10/02/20 06:20 Microbiology Microbiology 10/01/20 Blood Culture, Received Pending 10/01/20 Blood Culture, Received Pending Home Medications Scheduled Allopurinol (Zyloprim) 300 Mg Tablet, 300 MG PO DAILY, (Reported) Amoxicillin/Potassium Clav (Augmentin 875-125 Tablet) 1 Each Tablet, 1 TAB PO BID, (Reported) Bupropion HCl (Wellbutrin Sr) 150 Mg Tabcr, 150 MG PO BID, (Reported) Conjugated Estrogens (Premarin) 0.3 Mg Tablet, 0.3 MG PO Q3RD, (Reported) Cyanocobalamin (Vitamin B-12) (Vitamin B-12) 500 Mcg Tab, 500 MCG PO DAILY, (Reported) Ergocalciferol (Vitamin D2) (Vitamin D2) 50,000 Units Cap, 50,000 UNITS PO 1XWK, (Reported) SUNDAYS Ezetimibe (Zetia) 10 Mg Tab, 10 MG PO DAILY, (Reported) Furosemide (Furosemide) 20 Mg Tab, 40 MG PO BID, (Reported) Insulin Glargine,Hum.rec.anlog (Lantus Solostar) 100 Unit/Ml Inj, 48 UNITS SC BID, (Reported) Insulin Lispro (Humalog) 100 Unit/Ml Inj, 1 DOSE SC TID, (Reported) sliding scale with meals Lisinopril (Lisinopril) 10 Mg Tab, 10 MG PO DAILY, (Reported) Loratadine (Claritin) 10 Mg Cap, 10 MG PO DAILY, (Reported) Mometasone Furoate Monohydrate (Nasonex) 120 [place]/17 Gm Naspr, 2 SPRAY NARES DAILY, (Reported) [place]-3/Dha/Epa/Fish Oil (Fish Oil 1,000 mg Softgel) 1 Each Capsule, 1 GM PO BID, (Reported) Potassium Chloride (Potassium Chloride) 8 Meq Tablet.er, 8 MEQ PO DAILY, (Reported) Scheduled PRN Albuterol Sulfate (Proventil Hfa) 108 Mcg/Act Aer, 2 PUFF INH Q4H PRN for SOB/WHEEZING, (Reported) Fluticasone Propionate (Flovent Hfa) 220 Mcg/Act Aer, 2 PUFFS INH BID PRN for SHORTNESS OF BREATH, (Reported) Hydrocodone/Acetaminophen (Hydrocodone-Acetamin 5-325 mg) 1 Each Tablet, 1 TAB PO Q6H PRN for PAIN, (Reported) Lidocaine (Lidoderm) 5% Adh..patch, 1 PATCH TD DAILY PRN for PAIN, (Reported) APPLY TO RIGHT KNEE Allergies Coded Allergies: phenazopyridine (Verified Allergy, Unknown, hives, 10/03/18) Sulfa (Sulfonamide Antibiotics) (Verified Adverse Reaction, Unknown, nausea/vomiting, 10/17/18) fenofibrate (Verified Adverse Reaction, Unknown, myalgia, 10/17/18) pseudoephedrine (Verified Adverse Reaction, Unknown, nausea/vomiting, 10/17/18) rosuvastatin (Verified Adverse Reaction, Unknown, myalgia, 10/17/18) RAPHAEL CALDERON MD Oct 02, 2020 09:02
--- NOTE | 2020-10-02 09:36 | HPE ---
HISTORY AND PHYSICAL DATE OF ADMISSION: 10/01/2020 CHIEF COMPLAINT: Right upper quadrant abdominal pain for the past three days. HISTORY OF PRESENT ILLNESS: This is a 70-year-old female recently admitted to [facility] on September 19 and discharged on September 28 with intra-abdominal abscess requiring exploratory laparoscopy with abdominal washout and takedown of adhesions and evacuation of phlegmon with removal of a large portion of the Lap-Band tubing and was in the hospital for eight days with drain removed prior to hospital discharge. The patient was given intravenous antibiotics at that time and discharged home on Augmentin. Since the patient had been discharged for the past three days, she has had right lower quadrant abdominal stabbing pain without radiation accompanied with diarrhea, 2-3 bowel movements loose during the day with no nausea, no vomiting, fever or chills at home. She denied any bright red blood per rectum, melena or black tarry stools. She has not had any weight loss. She has had decrease in appetite due to the severe pain which worsens when she ambulates from 8/10 to a 10/10, better when she is lying still on her back. She had taken the prescribed pain medications twice a day with no improvement, prompting her to come into the emergency room. In the ER, CT, abdomen and pelvis did not show abscess or perforation. General surgeon client resolution specialist, Dr. Londono, recommended admission for pain control and IV antibiotics. She was afebrile, 98.7. White count was elevated at 17.4 with C-reactive protein of 13.9. The hospitalist was asked to admit the patient for an intra-abdominal abscess, status post abdominal washout, exploratory laparoscopy and removal of a large section of the Lap-Band. PAST MEDICAL HISTORY: 1. Infected Lap-Band, status post robotic-assisted abdominal washout with evacuation of abscess and portion of her left band tubing. 2. Hypertension. 3. Type 2 diabetes. 4. Dyslipidemia. 5. Gout. 6. Depression. 7. Chronic kidney disease, stage 3. 8. Chronic back pain. 9. Obesity. 10. BMI of 34.7. 11. Diabetes. 12. COPD. 13. Asthma. 14. Glaucoma. 15. Obstructive sleep apnea. 16. Noncompliant with CPAP. 17. Vision impairment using glasses. 18. Osteoarthritis stability using cane and walker. 19. Class 2 obesity, status post lap gastric bypass 8 years ago with revision 8 months ago. 20. Vitamin D deficiency. PAST SURGICAL HISTORY: 1. Exploratory laparoscopy with washout and removal of large section of her left band tubing in August, by Dr. Bear Garcia. 2. Hysterectomy. 3. Bilateral carpal tunnel surgery. SOCIAL HISTORY: Former smoker, from her , lives alone, has Meals [employer] Wheels. FAMILY HISTORY: Father of pneumonia. Mother of breast cancer. Sister had laryngeal cancer. Mother with stomach cancer. Daughter has anorexia and bulimia. ALLERGIES: SULFA, FENOFIBRATE, phenazopyridine, Pseudoephedrine, rosuvastatin. HOME MEDICATIONS: 1. Allopurinol 300 daily. 2. Augmentin 875-125 one tab b.i.d. 3. Wellbutrin 150 b.i.d. 4. Vitamin D 50,000 units weekly. 5. Zetia 10 mg daily. 6. Lasix 40 b.i.d. 7. Hydrocodone. 8. Acetaminophen one tablet q.6 as needed for pain. 9. Lispro sliding scale t.i.d. 10. Lidocaine patch. 11. [place]-3 one gram b.i.d. 12. Potassium 8 mEq daily. 13. Premarin 0.3 p.o. every third day. REVIEW OF SYSTEMS: As per HPI, 12-point system otherwise negative. PHYSICAL EXAMINATION: VITAL SIGNS: Temperature 100.3, pulse 92, respiratory rate 17, blood pressure 119/83, 92% on room air. GENERAL: Awake, alert and oriented to person, place and time, anicteric, no jaundice, no distress. Speaks in full sentences. HEENT: Pupils equally round and reactive to light and accommodation. Extraocular muscles are intact. Normocephalic, atraumatic. No JVD or thyromegaly. NECK: Supple, full range of motion. No stridor. No use of respiratory accessory muscles. LUNGS: Clear to auscultation, no wheezing rales or rhonchi. HEART: S1, S2, sinus rhythm. No murmurs, rubs or gallops. ABDOMEN: Soft, tender in the right lower quadrant. No rebound or guarding, obese. No hepatosplenomegaly. No abdominal bruit. EXTREMITIES: No cyanosis or clubbing. LABORATORY DATA: White count 17.4, hemoglobin 12, hematocrit 36, platelet count 268. Sodium 132, potassium 4, chloride 92, bicarb 30, BUN 14, creatinine 1, ionized calcium 4.4, glucose of 284. Coronavirus [address], abdomen and pelvis, 10/01/2020: Interval removal of percutaneous abdominal drain since 09/21/2020, no free air, improvement of inflammatory changes about the second portion of the duodenum and pancreatic head. There is no pseudocyst, abscess, perforation or free air. Trace amount of ascites. No generalized ascites. Gallbladder is mildly distended with layered hyperdense bile within, no biliary dilatation. Small bowel loops are unremarkable. Colon shows constipation from cecum to mid-transverse colon without stricture or mass or evidence of colitis or diverticulitis. I do not see the appendix. No renal, ureteral or bladder stone. No hydronephrosis. ASSESSMENT AND PLAN: This is a 70-year-old female admitted from 09/19 to 09/28 for an intra-abdominal abscess requiring robotic-assisted laparoscopy with removal of a large portion of the Lap-Band tubing treated with IV antibiotics and discharged on Augmentin, presents with a white count of 17,000, sharp abdominal pain in the right upper quadrant and right lower quadrant, diarrhea, prompting her to come to the ER. IMPRESSION: 1. History of Intra-abdominal abscess with persistent abdominal pain, status post exploratory laparoscopy with abdominal washout and removal of a large section of the Lap-Band tubing. The patient had a low grade temperature of 100.3. The patient is admitted to Medical-Surgical floor, given IV Zosyn 4.5 q.6 hourly, antiemetics, IV fluids, NPO status, Protonix and Carafate, fingersticks q.6 hourly with sliding scale. General surgery, Dr. Londono has been consulted and did not feel that the patient has any surgical needs at this time. 2. Type 2 diabetes on sliding scale, decrease longacting insulin to 50% of usual dose as the patient is currently NPO. If abdominal pain is resolved in the morning, may start on clear or full liquid diet. 3. History of obstructive sleep apnea, noncompliant with her CPAP, BMI of 34, at increased risk for respiratory acidosis with morphine and oxycodone on board. Will monitor worsening respiratory distress or altered mental status. 4. Hypertension, controlled. 5. Chronic kidney disease, stage 3 at baseline creatinine. Avoid nephrotoxins, renally dose all medications. Hold any diuretics for now since the patient is infected. 6. Dyslipidemia. Hold medications until resumes an oral intake. 7. History of COPD, asthma, currently with clear lungs without exacerbation. 8. History of glaucoma. Outpatient followup. 9. History of morbid obesity, status post Lap-Band eight years ago with revision eight months ago, now complicated by intra-abdominal abscess with prior washout from previous admission, September 19 to September 28. 10. DVT prophylaxis with compression stockings. MTDD
[2020-10-02] MEDS: FLUTICASONE PROP 0.05% NASAL SPRAY 16 GM (FLONASE) NARES SCH (09:47)
[2020-10-02] MEDS: MOM 30ML SUSPENSION UDC PO PRN (09:49)
--- NOTE | 2020-10-02 09:50 | IPNPDOC ---
Date Seen The patient was seen on 10/02/20. 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 JOB #[id number] VS, I&O, 24H, Fishbone Vital Signs/I&O Vital Signs Date Time Temp Pulse Resp B/P (MAP) Pulse Ox O2 Delivery O2 Flow Rate FiO2 10/02/20 08:24 149/68 10/02/20 06:53 18 Room Air 10/02/20 06:00 96.8 74 94 I&O- Last 24 Hours up to 6 AM 10/02/20 06:00 Intake Total 2120 ml Output Total 0 ml Balance 2120 ml Laboratory Data 24H LABS Laboratory Tests 2 10/01/20 10:36: Immature Granulocyte % (Auto) 1.1, Neutrophils (%) (Auto) 83.7H, Lymphocytes (%) (Auto) 7.8L, Monocytes (%) (Auto) 6.8, Eosinophils (%) (Auto) 0.3, Basophils (%) (Auto) 0.3, Neutrophils # (Auto) 14.6H, Lymphocytes # (Auto) 1.4L, Monocytes # (Auto) 1.2H, Eosinophils # (Auto) 0.1, Basophils # (Auto) 0.1, Nucleated Red Blood Cells % (auto) 0.0, Erythrocyte Sedimentation Rate 86H, Lactic Acid Level 1.6, Total Bilirubin 1.2H, Direct Bilirubin 0.7H, Aspartate Amino Transf (AST/SGOT) 40H, Alanine Aminotransferase (ALT/SGPT) 67, Alkaline Phosphatase 138H, Total Protein 7.4, Albumin 2.7L, Albumin/Globulin Ratio 0.6L, Lipase 172 10/01/20 10:40: Total Creatine Kinase 84, Creatine Kinase MB 2.2, Creatine Kinase MB Relative Index 2.62, Troponin I 0.02, C-Reactive Protein, Quantitative 13.90H 10/01/20 11:35: POC Glucose (Misc Panel) 353H, POC Sodium (Misc Panel) 132L, POC Potassium (Misc Panel) 4.0, POC Chloride (Misc Panel) 92L, POC Total CO2 (Misc Panel) 30.0H, POC Blood Urea Nitrogen (Misc Panel 14, POC Ionized Calcium (Misc Panel) 4.4L, POC Creatinine (Misc Panel) 1.0, POC Hematocrit (Misc Panel) 38.0 10/01/20 12:48: Blood Gas Bicarbonate Standard 28.5, Venous Blood pH 7.426, Venous Blood Partial Pressure CO2 46.5, Venous Blood Partial Pressure O2 52.4H, Venous Blood Total C [place]bon Dioxide 31.3H, Venous Blood HCO3 29.9H, Venous Blood Oxygen Saturation 88.1H, Venous Blood Base Excess 4.8H, Coronavirus (COVID-19)(PCR) NEGATIVE, Influenza Type A (RT-PCR) NEGATIVE, Influenza Type B (RT-PCR) NEGATIVE, Respiratory Syncytial Virus (PCR) NEGATIVE 10/01/20 14:25: Procalcitonin 1.03 10/01/20 15:40: Bedside Glucose (Misc Panel) 284H 10/01/20 18:52: Bedside Glucose (Misc Panel) 260H 10/01/20 21:04: Bedside Glucose (Misc Panel) 207H 10/01/20 23:58: Bedside Glucose (Misc Panel) 208H 10/02/20 05:55: Bedside Glucose (Misc Panel) 219H 10/02/20 06:20: Immature Granulocyte % (Auto) 0.7, Neutrophils (%) (Auto) 78.2H, Lymphocytes (%) (Auto) 11.8L, Monocytes (%) (Auto) 7.9, Eosinophils (%) (Auto) 1.0, Basophils (%) (Auto) 0.4, Neutrophils # (Auto) 12.8H, Lymphocytes # (Auto) 1.9, Monocytes # (Auto) 1.3H, Eosinophils # (Auto) 0.2, Basophils # (Auto) 0.1, Nucleated Red Blood Cells % (auto) 0.0, Anion Gap 6L, Glomerular Filtration Rate 53.7, Calcium Level 8.7L, Total Bilirubin 0.9, Aspartate Amino Transf (AST/SGOT) 24, Alanine Aminotransferase (ALT/SGPT) 46, Alkaline Phosphatase 124H, Total Protein 6.3L, Albumin 2.3L, Albumin/Globulin Ratio 0.6L, Triglycerides Level 186H, Total Cholesterol 211H, LDL Cholesterol 129H, Non-HDL Cholesterol (LDL + VLDL) 166, Total HDL Cholesterol 45, Cholesterol/HDL Ratio 4.688, Amylase Level 19L, Lipase 69L CBC/BMP Laboratory Tests 10/01/20 10:36 10/02/20 06:20 Microbiology Microbiology 10/01/20 Blood Culture, Received Pending 10/01/20 Blood Culture, Received Pending RONIT GOODMAN MD Oct 02, 2020 09:50
--- NOTE | 2020-10-02 10:21 | IPN ---
PROGRESS NOTE DATE: 10/02/2020 SUBJECTIVE: Patient denies nausea, vomiting. She still complains of occasional sharp right upper quadrant epigastric abdominal pain. This morning she is anxious to eat. Per surgery review of the CT indicates no surgical intervention and patient may be fed. OBJECTIVE: Vital signs: Temperature 96.8, pulse 74, respiratory rate 18, blood pressure 149/66, 94% on room air. General: No use of respiratory accessory muscles. Awake, alert, oriented to person, place and time, answering questions appropriately. HEENT: Anicteric, no jaundice. Dry mucous membranes. Neck: Supple, full range of motion. No JVD, no thyromegaly, no stridor. No cervical lymphadenopathy. Lungs: Clear to auscultation, no wheezes, rhonchi or rales. Heart: S1 and S2 sinus rhythm. Abdomen: Soft, slightly tender epigastric and right upper quadrant, no guarding or rebound. Obese abdomen. No hepatosplenomegaly, abdominal bruits. Extremities: No cyanosis or clubbing. LABORATORY DATA: Reviewed. Microbiology has been reviewed. IMAGING STUDIES: Reviewed. ASSESSMENT: This is a 70 -year-old female admitted from 09/19/2020-09/28/2020 at [facility] for an intra-abdominal abscess requiring robotic assisted laparoscopy with removal of a large portion of the lap band tubing, treated with I.V. antibiotics and discharged home on Augmentin presented to the Emergency Room with persistent right upper quadrant, epinephrine abdominal pain with white count of 17,000, diarrhea 2-3 times a day for 3 days for 3 days. IMPRESSIONS/PLAN: 1. Persistent abdominal pain status post intra-abdominal abscess with laparoscopy with abdominal washout, removal of large section of the lap band tubing: Patient is currently on intravenous Zosyn, antiemetics, I.V. fluids. Per surgery may be advanced to a liquid diet. On Protonix and Carafate. Fingersticks q6h and sliding scale have been discontinued since she is now eating orally. Per general surgeon Dr. Londono there is no acute surgical need, may continue to advance the diet. Review of the MRCP despite elevated bilirubin is not indicative of acute pancreatis. Findings are consistent with lap band tubing inflammation from previous infection. Recommendation from general surgery is for the patient to see her bariatric surgeon in [place] and to remove the lap band tubing. This does not require inpatient hospital transfer; however. Once the patient is medically stable she may be discharged home on oral antibiotics. She does have a follow up appointment with her bariatric surgeon on Sunday this coming week. 2. Type-2 diabetes: Patient has recently been started on a liquid diet and she may be kept on a sliding scale for now. We have decreased her long acting insulin to 50% until she resumes a full oral diet with solids. 3. History of obstructive sleep apnea noncompliant with CPAP with BMI of 34 with increased risk of respiratory acidosis with morphine and oxycodone for pain control: We are monitoring for worsening altered mental status or respiratory distress and hold parameters have been placed. 4. Hypertension uncontrolled secondary to pain: Patient is currently on pain medications and resumed on her home medication. 5. Chronic kidney disease stage 3: Currently at baseline creatinine. Diuretics have been held due to abdominal pain and decreased oral intake. 6. Dyslipidemia: Stable. 7. History of COPD/asthma: Clear lungs without exacerbation currently. 8. Glaucoma: Outpatient follow up. 9. Morbid obesity status post lap band gastric bypass surgery 8 years ago, revision 8 months ago now complicated with recent intra-abdominal abscess requiring abdominal washout and removal of a large segment of the lap band and recently discharged September 28: Patient has a follow up appointment with her bariatric surgeon this week. If medically stable may be discharged home with outpatient follow up. TEJ
[2020-10-02 14:00] VITALS: BP 145/71
[2020-10-02] MEDS ORDERED: ONDANSETRON 4MG/2ML VIAL IV PRN (17:00)
[2020-10-02 22:00] VITALS: BP 124/56
[2020-10-03] MEDS: PIPERACILLIN/TAZOBACTAM SOD 4.5 GM in D5W MINI-BAG PLUS 50 ML IV SCH ×4 (01:34→20:50)
[2020-10-03] MEDS: oxyCODONE 5MG TAB PO PRN (01:35)
[2020-10-03] MEDS: MORPHINE 4 MG/ML 1ML VIAL/SYRINGE (J2270) IV PRN (04:20)
[2020-10-03 06:00] VITALS: BP 138/86
[2020-10-03 06:24] LABS: HEMATOCRIT 31.8 % (36.0-47.0); HEMOGLOBIN 10.3 g/dl (12.0-15.5); MEAN CORPUSCULAR HEMOGLOBIN 29.3 pg (27.0-33.0); MEAN CORPUSCULAR HGB CONC 32.4 g/dl (32.0-36.5); MEAN CORPUSCULAR VOLUME 90.3 fl (80.0-96.0); PLATELET COUNT, AUTOMATED 268 10^3/uL (150-450); RED BLOOD COUNT 3.52 10^6/uL (4.00-5.40); WHITE BLOOD COUNT 11.8 10^3/uL (4.0-10.0)
[2020-10-03] MEDS ORDERED: BACI1CAP PO (06:50)
[2020-10-03] MEDS ORDERED: PANT40TA29 PO (06:50)
[2020-10-03] MEDS ORDERED: AUGM875T28 PO (06:50)
[2020-10-03] MEDS ORDERED: OXYC-517 PO (06:50)
[2020-10-03] MEDS ORDERED: SENN-52 PO (06:50)
[2020-10-03] MEDS ORDERED: SUCR1TA PO (06:50)
[2020-10-03 07:04] LABS: ALBUMIN 2.1 GM/DL (3.2-5.2); ALT/SGPT 67 U/L (12-78); BILIRUBIN,TOTAL 1.7 MG/DL (0.2-1.0); BLOOD UREA NITROGEN 10 MG/DL (7-18); CALCIUM LEVEL 8.3 MG/DL (8.8-10.2); CARBON DIOXIDE LEVEL 28 MEQ/L (21-32); CHLORIDE LEVEL 101 MEQ/L (98-107); CREATININE FOR GFR 0.97 MG/DL (0.55-1.30); GLOMERULAR FILTRATION RATE > 60.0 (>39); GLUCOSE, FASTING 262 MG/DL (70-100); POTASSIUM SERUM 4.3 MEQ/L (3.5-5.1); SODIUM LEVEL 137 MEQ/L (136-145); TOTAL PROTEIN 5.7 GM/DL (6.4-8.2)
[2020-10-03] MEDS: HumaLOG INSULIN (NovoLOG) PER UNIT SC SCH ×4 (07:30→20:51)
[2020-10-03] MEDS: CYANOCOBALAMIN 500 MCG TAB PO SCH (08:39)
[2020-10-03] MEDS: LEVEMIR (INSULIN DETEMIR) 1 UNITS/0.01ML SC SCH ×2 (08:39→20:51)
[2020-10-03] MEDS: ACETAMINOPHEN 500 MG TAB PO SCH ×3 (08:39→20:50)
[2020-10-03] MEDS: SUCRALFATE 1 GM TAB PO SCH ×4 (08:39→20:50)
[2020-10-03] MEDS: LORATADINE 10 MG TAB PO SCH (08:39)
[2020-10-03 08:40] LABS: ERYTHROCYTE SEDIMENTATION RATE 105 mm/hr (0-30)
[2020-10-03] MEDS: FLUTICASONE PROP 0.05% NASAL SPRAY 16 GM (FLONASE) NARES SCH (08:40)
--- NOTE | 2020-10-03 08:51 | IPNPDOC ---
Date Seen The patient was seen on 10/03/20. Progress Note Hospitalist progress note is dictated job #[id number]. Please have the unit manager [employer] call DARLEEN Reddy PE at [phone] if note is needed urgently for stat manager cardiovascular VS, I&O, 24H, Fishbone Vital Signs/I&O Vital Signs Date Time Temp Pulse Resp B/P (MAP) Pulse Ox O2 Delivery O2 Flow Rate FiO2 10/03/20 08:44 113/57 10/03/20 06:00 97.3 87 18 93 Room Air I&O- Last 24 Hours up to 6 AM 10/03/20 05:59 Intake Total 3195 ml Output Total 900 ml Balance 2295 ml Laboratory Data 24H LABS Laboratory Tests 2 10/02/20 11:38: Bedside Glucose (Misc Panel) 445H 10/02/20 16:45: Urine Color YELLOW, Urine Appearance CLEAR, Urine pH 5.0, Urine Specific [place] 1.030, Urine Protein NEGATIVE, Urine Glucose (UA) 3+H, Urine Ketones NEGATIVE, Urine Blood NEGATIVE, Urine Nitrite NEGATIVE, Urine Bilirubin NEGATIVE, Urine Urobilinogen 0.2, Urine Leukocyte Esterase NEGATIVE, Urine WBC (Auto) 1, Urine RBC (Auto) 0, Urine Hyaline Casts (Auto) 0, Urine Bacteria (Auto) NEGATIVE, Urine Squamous Epithelial Cells 1, Urine Sperm (Auto) 10/02/20 17:07: Bedside Glucose (Misc Panel) 278H 10/02/20 20:41: Bedside Glucose (Misc Panel) 322H 10/03/20 01:40: Bedside Glucose (Misc Panel) 261H 10/03/20 06:09: Nucleated Red Blood Cells % (auto) 0.0, Erythrocyte Sedimentation Rate 105H, Anion Gap 8, Glomerular Filtration Rate > 60.0, Calcium Level 8.3L, Magnesium Level 2.0, Total Bilirubin 1.7#H, Aspartate Amino Transf (AST/SGOT) 67H, Alanine Aminotransferase (ALT/SGPT) 67, Alkaline Phosphatase 135H, C-Reactive Protein, Quantitative 14.40H, Total Protein 5.7L, Albumin 2.1L, Albumin/Globulin Ratio 0.6L CBC/BMP Laboratory Tests 10/03/20 06:09 Microbiology Microbiology 10/01/20 Blood Culture - Preliminary, Resulted No growth after 24 hours . All specim... 10/01/20 Blood Culture - Preliminary, Resulted No growth after 24 hours . All specim... RONIT GOODMAN MD Oct 03, 2020 08:51
--- NOTE | 2020-10-03 09:06 | IPNPDOC ---
Text Note Date of Service The patient was seen on 10/03/20. NOTE Patient admitted for abdominal pain secondary to inflammation (presumed residu al) from prior infected lap band tubing?. She reports her pain worsened when she tried eating, somewhat nauseated. Afebrile On exam she looks comfortable, she is currently reporting pain 10/10 visibly burping during conversation nontachycardic, regular rhythm clear breath sounds bilaterally abdomen is obese, soft, nondistended, tender over midepigastric area without reboung or guading Impression and plan: residual inflammation along head of pancreas and duodenum from prior phlegmon and abscess related to retained lap band tubing I told her that she may continue to experience pain due to the left over inflammation around pancreas and duodenum as seen on her most recent imaging (CT, MRI) but she should try to see what she is able to tolerate, food jaquez. Alternatively she may reform an abscess/phlegmon. Her WBC is down but CRP still markedly elevated. She is scheduled to see Dr. Silveira this . Im wondering if an alternative would be to transfer her to his care for possible earlier removal of her lap band and tubing to prevent reinfection of the remaining fb if she is not able to go home. VS,Fishbone, I+O VS, Fishbone, I+O Laboratory Tests 10/03/20 06:09 Vital Signs Date Time Temp Pulse Resp B/P (MAP) Pulse Ox O2 Delivery O2 Flow Rate FiO2 10/03/20 08:44 113/57 10/03/20 06:00 97.3 87 18 93 Room Air I&O- Last 24 Hours up to 6 AM 10/03/20 06:00 Intake Total 3345 ml Output Total 900 ml Balance 2445 ml RAPHAEL CALDERON MD Oct 03, 2020 09:06
[2020-10-03 14:00] VITALS: BP 146/80
--- NOTE | 2020-10-03 15:07 | IPN ---
PROGRESS NOTE DATE: 10/03/2020 SUBJECTIVE: Patient seen and examined at the bedside. Chart has been reviewed. She complains of pain in the epigastric right upper quadrant radiating to the back rated at 6/10, but able to tolerate her liquid diet without nausea, vomiting or fever. She complained of some chills and night sweats last night, none this morning. No other complaints PHYSICAL EXAMINATION: Temperature 97.3, pulse 87, respiratory rate 18, blood pressure 138/86, 93% on room air. GENERAL: Awake, alert, oriented times three, answering questions appropriately. No conversational dyspnea. No cyanosis. No pallor. HEENT: No jugular venous distention (JVD), thyromegaly or cervical lymphadenopathy. Moist mucous membranes. No carotid bruit. LUNGS: Clear to auscultation. No wheezing, rales or rhonchi. HEART: S1, S2. Sinus rhythm. ABDOMEN: Obese, soft. Tender epigastric right upper quadrant. No rebound or guarding. No hepatosplenomegaly, abdominal bruit or costovertebral angle (CVA) tenderness. EXTREMITIES: No cyanosis or clubbing. LABORATORY DATA: White count 11, hemoglobin 10, hematocrit 31, platelet count 268. Total bilirubin 1.7, AST 67, alkaline phosphatase 135. C-reactive protein 14.4. ASSESSMENT: This is a 70-year-old female admitted at [facility] from 09/19/2020 to 09/28/2020 for intraabdominal abscess requiring robotic-assisted laparoscopy with removal of a large portion of the lap-band tubing, treated with intravenous (IV) antibiotics, discharged home on Augmentin, returns to the emergency room (ER) with persistent right upper quadrant and epigastric abdominal pain radiating to the back and found to have a white count of 17,000, as well as complaints of diarrhea 2-3 times a day for the past three days. IMPRESSION: 1. Abdominal pain status post intraabdominal abscess with laparoscopy, abdominal washout, removal of a large section of lap-band tubing. Per general surgeon, Dr. Londono, patient is to be continued on intravenous (IV) antibiotics and antiemetics. She is not tolerating advancement of diet. Still on clear liquids. On Protonix and Carafate. Magnetic resonance cholangiopancreatography (MRCP) showed possible pancreatitis but general surgery thinks this is from the lap-band tubing inflammation. There is no choledocholithiasis. Patient is to have a followup appointment with her bariatric surgeon. Per Dr. Londono, she should have the lap-banding removed. 2. Type 2 diabetes. On liquid diet, sliding scale and lower dose of her long-acting insulin. 3. Obstructive sleep apnea (KAREN) on continuous positive airway pressure (CPAP). Body mass index (BMI) of 34. Since she is on morphine and oxycodone, monitor for respiratory distress. 4. Hypertension. Improved on nitro-paste. Resumed on her home medications. 5. Chronic kidney disease stage III. Currently at baseline creatinine. 6. Dyslipidemia. Stable. 7. History of chronic obstructive pulmonary disease (COPD) and asthma. Lungs clear currently. 8. Morbid obesity. Status post lap-band gastric bypass eight years ago with revision eight months ago. Has followup appointment this week with her bariatric surgeon, but complicated by infection and intraabdominal abscess, still requiring antibiotics. DISPOSITION: One to two more days due to persistent pain and not tolerating diet.
[2020-10-03 22:00] VITALS: BP 162/88
[2020-10-04] MEDS: PIPERACILLIN/TAZOBACTAM SOD 4.5 GM in D5W MINI-BAG PLUS 50 ML IV SCH ×3 (02:29→14:47)
[2020-10-04] MEDS: oxyCODONE 5MG TAB PO PRN (02:29)
[2020-10-04] MEDS: MORPHINE 4 MG/ML 1ML VIAL/SYRINGE (J2270) IV PRN (05:37)
[2020-10-04 06:00] VITALS: BP 166/80
[2020-10-04 06:02] LABS: HEMATOCRIT 33.9 % (36.0-47.0); MEAN CORPUSCULAR HEMOGLOBIN 29.6 pg (27.0-33.0); MEAN CORPUSCULAR HGB CONC 32.4 g/dl (32.0-36.5); MEAN CORPUSCULAR VOLUME 91.1 fl (80.0-96.0); PLATELET COUNT, AUTOMATED 313 10^3/uL (150-450); RED BLOOD COUNT 3.72 10^6/uL (4.00-5.40); WHITE BLOOD COUNT 9.2 10^3/uL (4.0-10.0)
[2020-10-04 06:54] LABS: ALBUMIN 2.2 GM/DL (3.2-5.2); CALCIUM LEVEL 9.1 MG/DL (8.8-10.2); CREATININE FOR GFR 0.99 MG/DL (0.55-1.30); GLOMERULAR FILTRATION RATE 58.7 (>39); MAGNESIUM LEVEL 2.2 MG/DL (1.8-2.4); POTASSIUM SERUM 4.1 MEQ/L (3.5-5.1)
[2020-10-04 08:01] LABS: C REACTIVE PROTEIN QUANTITATIV 12.7 MG/DL (0.00-0.30)
[2020-10-04] MEDS: SUCRALFATE 1 GM TAB PO SCH ×2 (08:02→12:14)
[2020-10-04] MEDS: HumaLOG INSULIN (NovoLOG) PER UNIT SC SCH ×2 (08:03→12:14)
[2020-10-04] MEDS ORDERED: FLAG500T PO (08:46)
[2020-10-04] MEDS ORDERED: LEVO750T13 PO (08:46)
[2020-10-04] MEDS: MOM 30ML SUSPENSION UDC PO PRN (09:25)
[2020-10-04] MEDS: CYANOCOBALAMIN 500 MCG TAB PO SCH (09:26)
[2020-10-04] MEDS: FLUTICASONE PROP 0.05% NASAL SPRAY 16 GM (FLONASE) NARES SCH (09:26)
[2020-10-04] MEDS: LORATADINE 10 MG TAB PO SCH (09:26)
[2020-10-04] MEDS: ACETAMINOPHEN 500 MG TAB PO SCH (09:26)
[2020-10-04] MEDS: LEVEMIR (INSULIN DETEMIR) 1 UNITS/0.01ML SC SCH (09:26)
[2020-10-04 09:28] VITALS: BP 148/70
--- NOTE | 2020-10-04 09:39 | DS.PDOC ---
Discharge Summary General Date of Admission Oct 02, 2020 at 09:42 Date of Discharge 10/04/20 Discharge Summary pls have community nutrition educator call [employer] at [phone] to stat [facility] hospitalist discharge summary job # [id number] Vital Signs/I&Os Vital Signs Date Time Temp Pulse Resp B/P (MAP) Pulse Ox O2 Delivery O2 Flow Rate FiO2 10/04/20 09:28 148/70 10/04/20 06:00 97.9 76 17 94 Room Air I&O- Last 24 Hours up to 6 AM 10/04/20 06:00 Intake Total 3340 ml Output Total 2700 ml Balance 640 ml Laboratory Data Labs 24H Laboratory Tests 2 10/03/20 11:53: Bedside Glucose (Misc Panel) 337H 10/03/20 17:11: Bedside Glucose (Misc Panel) 151H 10/03/20 20:44: Bedside Glucose (Misc Panel) 322H 10/04/20 05:33: Nucleated Red Blood Cells % (auto) 0.0, Anion Gap 6L, Glomerular Filtration Rate 58.7, Calcium Level 9.1, Magnesium Level 2.2, Total Bilirubin 1.0, Aspartate Amino Transf (AST/SGOT) 83H, Alanine Aminotransferase (ALT/SGPT) 106H, Alkaline Phosphatase 198H, C-Reactive Protein, Quantitative 12.70H, Total Protein 7.0#, Albumin 2.2L, Albumin/Globulin Ratio 0.5L CBC/BMP Laboratory Tests 10/04/20 05:33 FSBS Laboratory Tests Test 10/03/20 11:53 10/03/20 17:11 10/03/20 20:44 Range/Units Bedside Glucose (Misc Panel) 337 151 322 83-110 MG/DL Microbiology Microbiology 10/01/20 Blood Culture - Preliminary, Resulted No Growth after 48 hours. All Specime... 10/01/20 Blood Culture - Preliminary, Resulted No Growth after 48 hours. All Specime... Discharge Medications Scheduled Allopurinol (Zyloprim) 300 Mg Tablet, 300 MG PO DAILY, (Reported) Bacillus Coagulans (Bacid with Lactospore) 1 Each Capsule, 1 CAP PO [facility] Bupropion HCl (Wellbutrin Sr) 150 Mg Tabcr, 150 MG PO BID, (Reported) Conjugated Estrogens (Premarin) 0.3 Mg Tablet, 0.3 MG PO Q3RD, (Reported) Cyanocobalamin (Vitamin B-12) (Vitamin B-12) 500 Mcg Tab, 500 MCG PO DAILY, (Reported) Ergocalciferol (Vitamin D2) (Vitamin D2) 50,000 Units Cap, 50,000 UNITS PO 1XWK, (Reported) SUNDAYS Ezetimibe (Zetia) 10 Mg Tab, 10 MG PO DAILY, (Reported) Furosemide (Furosemide) 20 Mg Tab, 40 MG PO BID, (Reported) Insulin Glargine,Hum.rec.anlog (Lantus Solostar) 100 Unit/Ml Inj, 48 UNITS SC BID, (Reported) Insulin Lispro (Humalog) 100 Unit/Ml Inj, 1 DOSE SC TID, (Reported) sliding scale with meals Levofloxacin (Levofloxacin) 750 Mg Tablet, 750 MG PO DAILY Lisinopril (Lisinopril) 10 Mg Tab, 10 MG PO DAILY, (Reported) Loratadine (Claritin) 10 Mg Cap, 10 MG PO DAILY, (Reported) Metronidazole (Flagyl) 500 Mg Tablet, 500 MG PO Q8H FOR 10 DAYS Mometasone Furoate Monohydrate (Nasonex) 120 [place]/17 Gm Naspr, 2 SPRAY NARES DAILY, (Reported) [place]-3/Dha/Epa/Fish Oil (Fish Oil 1,000 mg Softgel) 1 Each Capsule, 1 GM PO BID, (Reported) Pantoprazole Sodium (Pantoprazole Sodium) 40 Mg Tablet.dr, 40 MG PO BID Potassium Chloride (Potassium Chloride) 8 Meq Tablet.er, 8 MEQ PO DAILY, (Reported) Sucralfate (Sucralfate) 1 Gm Tablet, 1 GM PO ACHS Scheduled PRN Albuterol Sulfate (Proventil Hfa) 108 Mcg/Act Aer, 2 PUFF INH Q4H PRN for SOB/WHEEZING, (Reported) Fluticasone Propionate (Flovent Hfa) 220 Mcg/Act Aer, 2 PUFFS INH BID PRN for SHORTNESS OF BREATH, (Reported) Hydrocodone/Acetaminophen (Hydrocodone-Acetamin 5-325 mg) 1 Each Tablet, 1 TAB PO Q6H PRN for PAIN, (Reported) Lidocaine (Lidoderm) 5% Adh..patch, 1 PATCH TD DAILY PRN for PAIN, (Reported) APPLY TO RIGHT KNEE Oxycodone HCl (Oxycodone HCl) 5 Mg Tablet, 5 MG PO Q4HP PRN for PAIN LEVEL 6-10 Sennosides/Docusate Sodium (Senna Plus Tablet) 1 Each Tablet, 2 TAB PO BIDP PRN for CONSTIPATION Allergies Coded Allergies: phenazopyridine (Verified Allergy, Unknown, hives, 10/03/18) Sulfa (Sulfonamide Antibiotics) (Verified Adverse Reaction, Unknown, nausea/vomiting, 10/17/18) fenofibrate (Verified Adverse Reaction, Unknown, myalgia, 10/17/18) pseudoephedrine (Verified Adverse Reaction, Unknown, nausea/vomiting, 10/17/18) rosuvastatin (Verified Adverse Reaction, Unknown, myalgia, 10/17/18) RONIT GOODMAN MD Oct 04, 2020 09:39
--- NOTE | 2020-10-04 10:12 | DSES ---
DISCHARGE SUMMARY DATE OF ADMISSION: 10/02/2020 DATE OF DISCHARGE: 10/04/2020 CONSULTING PHYSICIAN: RAPHAEL LONDONO MD/GENERAL SURGERY PRIMARY DISCHARGE DIAGNOSIS: 1. Residual inflammation along the head of the pancreas and duodenum from prior phlegmon and abscess related to retained lap band tubing. 2. Intractable abdominal pain secondary to above. 3. Obesity, BMI of 37.7 with history of gastric bypass surgery, lap banding and revision eight months ago. 4. History of intraabdominal abscess, admitted on 09/19 to 09/28 requiring robotic-assisted laparoscopy with removal of a large portion of a lap band tubing. 5. Type 2 diabetes. 6. Obstructive sleep apnea. 7. Hypertension. 8. Chronic kidney disease Stage III. 9. Dyslipidemia. 10.COPD and asthma. 11.Morbid obesity. DISCHARGE MEDICATIONS: 1. Levaquin 750 daily. 2. Flagyl 500 mg q. 8. 3. Bacid one cap with meals h.s. 4. Oxycodone 5 q. 4 as needed. 5. Protonix 40 b.i.d. 6. Senokot two tabs b.i.d. as needed. 7. Carafate 1 gram a.c. and h.s. 8. Albuterol two puffs q. 4 as needed. 9. Allopurinol 300 daily. 10.Wellbutrin 150 b.i.d. 11.Premarin 0.3 every third day. 12.Vitamin D 50,000 units weekly. 13.Zetia 10 mg daily. 14.Flovent two puffs inhaled as needed. 15.Lasix 40 b.i.d. 16.Hydrocodone/acetaminophen one tab q. 6 as needed. 17.Lantus insulin 48 units sub q. b.i.d. 18.Lispro sliding scale. 19.Lidoderm patch, one patch daily as needed. 20.Lisinopril 10 daily. 21.Loratadine 10 daily. 22.Mometasone, two sprays in nares daily. 23.[place]-3 one gram b.i.d. 24.Potassium 8 mEq daily. DISCHARGE INSTRUCTIONS: Immediate follow-up with bariatric surgeon in [place], Dr. Silveira this week, , primary care physician and surgical follow-up within a week of hospital discharge. HOSPITAL COURSE: This is a 70-year-old female admitted to [facility] from September 19 to September 28 due to an intraabdominal abscess found on exploratory laparoscopy requiring abdominal washout, removal of large section of the lap band tubing, treated with IV Zosyn, discharged on Augmentin. The patient did not have a duodenal ulcer perforation and was discharged in stable condition but presented to the Emergency Room with a three day history of right upper quadrant epigastric stabbing abdominal pain and diarrhea, 2-3 bowel movements per day with decrease in appetite without fever or chills. She was found to have leukocytosis with a white count of 17,000. CT of the abdomen and pelvis showed improvement from previous with no localized abscess but with persistent inflammation found on MRCP. Dr. Londono, general surgeon recommended intravenous antibiotics, bowel rest, NPO status and IV fluids. Patient was felt to have persistent inflammation along the head of the pancreas and duodenum from prior phlegmon and abscess related to the retained left band tubing with recommendations to have the lap band tubing removed by her bariatric surgeon, Dr. Silveira immediately after hospital discharge. Patient as kept NPO, kept on IV Zosyn 4.5 grams q. 6 hourly with improvement in white blood cell count from admission of 17.4 to 9.2 which is normal. She remained afebrile with no chills. She was initially kept NPO on IV fluids but tolerated changing to an oral diet, low residue, but initially on clears, full liquid and now tolerating a low residue diet. She has been kept on oxycodone and Tylenol as needed. Patient did not have any dehydration during this admission and was discharged in stable condition. She had episodes of high blood pressure and was resumed on her home medications without ischemic symptoms. PHYSICAL EXAMINATION: On discharge, temperature was 97.9, pulse 76, respiratory rate was 17, blood pressure is 148/70, 94% on room air. In general, patient is awake, alert and oriented to person, place and time, anicteric. No jaundice. No use of respiratory or accessory muscles. HEENT: No JVD or thyromegaly. No cervical lymphadenopathy. Moist mucous membranes. No stridor. No carotid bruits. Lungs are clear to auscultation. No wheezing, rales or rhonchi. Heart: S1 and S2, sinus rhythm. No murmurs, rubs or gallops. Abdomen is soft, tender in the epigastric and left upper quadrant. No rebound or guarding. Positive bowel sounds x4 quadrants, soft. No hepatosplenomegaly or abdominal bruit. Extremities: No cyanosis, clubbing or edema. LABORATORY DATA: White count 9.2, hemoglobin 11, hematocrit 33, platelet count 313,000, sodium 136, potassium is 4.1, chloride 100, bicarbonate 30, BUN 10, creatinine 0.99, glucose 353. Calcium 9.1. Magnesium 2.2. T-bilirubin 1, AST 83, ALT 106, alkaline phosphatase 198, CRP 12.7, total protein 7, albumin 2.2. Two sets of blood cultures are negative. TIME SPENT ON DISCHARGE: 30 minutes
== END 2020-10-04 14:56 | disposition home or self-care (01) | DRG 393 ==
LOC: M ED 10:16 → EDBD 10:16 → M ED INP 10:17 → ENRESERV 16:20 → M 4MAIN 18:00 → M MSPAV 18:01 → OBSVTOIN 10-02 09:42
PROVIDERS: ADMIT General Practice; ATTEND General Practice
DX: K95.09 Other complications of gastric band procedure (principal); K85.90 Acute pancreatitis without necrosis or infection, unspecified; R10.13 Epigastric pain; N18.30 Chronic kidney disease, stage 3 unspecified; I12.9 Hypertensive chronic kidney disease with stage 1 through stage 4 chronic kidney disease, or unspecified chronic kidney disease; E78.5 Hyperlipidemia, unspecified; J45.909 Unspecified asthma, uncomplicated; E66.01 Morbid (severe) obesity due to excess calories; K29.80 Duodenitis without bleeding; Z68.37 Body mass index [BMI] 37.0-37.9, adult; E11.9 Type 2 diabetes mellitus without complications; G47.33 Obstructive sleep apnea (adult) (pediatric); Z79.899 Other long term (current) drug therapy; Z88.2 Allergy status to sulfonamides; Z88.8 Allergy status to other drugs, medicaments and biological substances; Z79.4 Long term (current) use of insulin

== ENCOUNTER 2020-10-25 16:58 | Emergency (ER) | payer MEDICARE ==
[~2020-10-25] VITALS: Ht 154.9 cm; Wt 80.7 kg
[~2020-10-25 16:58] MED LIST changes: +BACI1CAP PO; +FLAG500T PO; +HYDR-3713 PO; +LEVO750T13 PO; +OXYC-517 PO; +PANT40TA29 PO; +SENN-52 PO; +SUCR1TA PO
[2020-10-25 19:53] LABS: BASO # 0.1 10^3/uL (0.0-0.2); BASO % 0.9 % (0.0-1.0); EOS # 0.3 10^3/uL (0.0-0.5); EOS % 3.4 % (0.0-3.0); HEMATOCRIT 37.9 % (36.0-47.0); HEMOGLOBIN 12.1 g/dl (12.0-15.5); LYMPH # 3.2 10^3/uL (1.5-5.0); LYMPH % 35.3 % (24.0-44.0); MEAN CORPUSCULAR HEMOGLOBIN 28.5 pg (27.0-33.0); MEAN CORPUSCULAR HGB CONC 31.9 g/dl (32.0-36.5); MEAN CORPUSCULAR VOLUME 89.2 fl (80.0-96.0); MONO # 0.7 10^3/uL (0.0-0.8); MONO % 7.4 % (2.0-8.0); NEUTROPHILS # 4.8 10^3/uL (1.5-8.5); NEUTROPHILS % 52.6 % (36.0-66.0); PLATELET COUNT, AUTOMATED 246 10^3/uL (150-450); RED BLOOD COUNT 4.25 10^6/uL (4.00-5.40); WHITE BLOOD COUNT 9.1 10^3/uL (4.0-10.0)
[2020-10-25 20:04] LABS: ALT/SGPT 40 U/L (12-78); BILIRUBIN,DIRECT 0.1 MG/DL (0.0-0.2); BILIRUBIN,TOTAL 0.2 MG/DL (0.2-1.0); C REACTIVE PROTEIN QUANTITATIV 2.18 MG/DL (0.00-0.30); LIPASE 46 U/L (73-393); TOTAL PROTEIN 7.1 GM/DL (6.4-8.2)
[2020-10-25 20:30] LABS: ERYTHROCYTE SEDIMENTATION RATE 70 mm/hr (0-30)
[2020-10-25] MEDS ORDERED: LIDOCAINE 1% MDV 20ML VIAL SC ONE (20:45)
[2020-10-25] MEDS ORDERED: oxyCODONE 5MG TAB PO ONE (22:05)
[2020-10-25] MEDS ORDERED: FUROSEMIDE 40 MG TAB PO ONE (22:05)
[2020-10-25 22:20] LABS: CK-MB VALUE MASS 3.1 NG/ML (<3.6); CPK CREATINE PHOSPHOKINASE 127 U/L (26-192); MB/CK RELATIVE INDEX 2.44 (< OR =4); TROPONIN I < 0.02 NG/ML (< 0.10)
[2020-10-25 23:06] VITALS: BP 170/72
[2020-10-26] MEDS ORDERED: AMOX1SUS19 (12:16)
--- NOTE | 2020-10-26 13:24 | ECGEPIP ---
[facility] - ED Test Date: 2020-10-25 Pat Name: MARISOL COBOS Department: Room: - Gender: Female License Inspector: SALAZAR : [id number] Requested By: GAMAL Neville PA-C Order Number: [id number] Reading MD: Jey Cross Measurements Intervals [place] Rate: 77 P: 51 WY: 186 QRS: -53 QRSD: 130 T: 85 QT: 376 QTc: 425 Interpretive Statements Normal sinus rhythm Left axis deviation Left bundle branch block POOR R WAVE PROGRESSION SIMILAR TO 09/20/20 Electronically Signed on 10-26-2020 13:24:26 EDT by Jey Cross
== END 2020-10-25 23:07 | disposition home or self-care (01) ==
LOC: M ED 16:58
DX: L02.211 Cutaneous abscess of abdominal wall (principal); E11.9 Type 2 diabetes mellitus without complications; J44.9 Chronic obstructive pulmonary disease, unspecified; N18.30 Chronic kidney disease, stage 3 unspecified; K57.32 Diverticulitis of large intestine without perforation or abscess without bleeding; Z87.891 Personal history of nicotine dependence; Z98.84 Bariatric surgery status; Z88.1 Allergy status to other antibiotic agents; Z88.2 Allergy status to sulfonamides; Z88.8 Allergy status to other drugs, medicaments and biological substances

== ENCOUNTER 2020-10-26 11:43 | Emergency (ER) | payer MEDICARE ==
[~2020-10-26] VITALS: Ht 154.9 cm; Wt 80.3 kg
[2020-10-26 11:43] VITALS: BP 154/74
[2020-10-26] MEDS ORDERED: AMOX1SUS19 (12:16)
== END 2020-10-26 12:43 | disposition home or self-care (01) ==
LOC: M ED 11:43
DX: Z48.00 Encounter for change or removal of nonsurgical wound dressing (principal); G47.30 Sleep apnea, unspecified; J44.9 Chronic obstructive pulmonary disease, unspecified; E11.9 Type 2 diabetes mellitus without complications; E78.5 Hyperlipidemia, unspecified; I10 Essential (primary) hypertension; Z88.1 Allergy status to other antibiotic agents; Z88.2 Allergy status to sulfonamides; Z88.8 Allergy status to other drugs, medicaments and biological substances

== ENCOUNTER → 2020-11-08 | Outpatient (REF) | payer MEDICARE ==
[~2020-11-08] MED LIST changes: +AMOX1SUS19
[2020-11-08 17:51] LABS: BASO # 0.1 10^3/uL (0.0-0.2); BASO % 0.8 % (0.0-1.0); EOS # 0.4 10^3/uL (0.0-0.5); EOS % 3.2 % (0.0-3.0); HEMOGLOBIN 12.1 g/dl (12.0-15.5); LYMPH # 3.3 10^3/uL (1.5-5.0); MEAN CORPUSCULAR HEMOGLOBIN 28.1 pg (27.0-33.0); MEAN CORPUSCULAR VOLUME 90.5 fl (80.0-96.0); MONO # 0.8 10^3/uL (0.0-0.8); MONO % 7.2 % (2.0-8.0); NEUTROPHILS # 6.5 10^3/uL (1.5-8.5); NEUTROPHILS % 58.4 % (36.0-66.0); PLATELET COUNT, AUTOMATED 280 10^3/uL (150-450); RED BLOOD COUNT 4.31 10^6/uL (4.00-5.40); WHITE BLOOD COUNT 11.1 10^3/uL (4.0-10.0)
[2020-11-08 18:13] LABS: ALBUMIN 3.5 GM/DL (3.2-5.2); ALT/SGPT 64 U/L (12-78); BILIRUBIN,TOTAL 0.3 MG/DL (0.2-1.0); BLOOD UREA NITROGEN 15 MG/DL (7-18); C REACTIVE PROTEIN QUANTITATIV 2.45 MG/DL (0.00-0.30); CALCIUM LEVEL 9.6 MG/DL (8.8-10.2); CARBON DIOXIDE LEVEL 30 MEQ/L (21-32); CHLORIDE LEVEL 102 MEQ/L (98-107); CREATININE FOR GFR 0.79 MG/DL (0.55-1.30); GLOMERULAR FILTRATION RATE > 60.0 (>39); GLUCOSE, FASTING 57 MG/DL (70-100); POTASSIUM SERUM 3.9 MEQ/L (3.5-5.1); SODIUM LEVEL 138 MEQ/L (136-145); TOTAL PROTEIN 7.3 GM/DL (6.4-8.2)
[2020-11-08 18:50] LABS: ERYTHROCYTE SEDIMENTATION RATE 67 mm/hr (0-30)
[2020-11-08 19:33] LABS: HEMOGLOBIN A1c 7.6 %
== END ==
LOC: M LAB REF 16:37
PROVIDERS: ATTEND Family Medicine
DX: K95.01 Infection due to gastric band procedure (principal); G60.9 Hereditary and idiopathic neuropathy, unspecified; R10.9 Unspecified abdominal pain; Z79.899 Other long term (current) drug therapy

== ENCOUNTER 2020-12-06 18:47 | Emergency (ER) | payer MEDICARE ==
[~2020-12-06] VITALS: Ht 154.9 cm; Wt 75.0 kg
[~2020-12-06 18:47] MED LIST changes: +ERGO500029 PO
[2020-12-06] MEDS ORDERED: PANTOPRAZOLE 40MG VIAL (C9113 PER 1) IV ONE (19:05)
[2020-12-06] MEDS ORDERED: NS 1,000 ML IV SCH (19:05)
[2020-12-06 19:41] LABS: BASO # 0.1 10^3/uL (0.0-0.2); BASO % 0.6 % (0.0-1.0); EOS # 0.2 10^3/uL (0.0-0.5); EOS % 2.2 % (0.0-3.0); HEMATOCRIT 39.2 % (36.0-47.0); HEMOGLOBIN 12.5 g/dl (12.0-15.5); LYMPH # 3.1 10^3/uL (1.5-5.0); LYMPH % 27.6 % (24.0-44.0); MEAN CORPUSCULAR HEMOGLOBIN 28.3 pg (27.0-33.0); MEAN CORPUSCULAR HGB CONC 31.9 g/dl (32.0-36.5); MEAN CORPUSCULAR VOLUME 88.9 fl (80.0-96.0); MONO % 8.9 % (2.0-8.0); NEUTROPHILS # 6.7 10^3/uL (1.5-8.5); NEUTROPHILS % 60.3 % (36.0-66.0); PLATELET COUNT, AUTOMATED 239 10^3/uL (150-450); RED BLOOD COUNT 4.41 10^6/uL (4.00-5.40); WHITE BLOOD COUNT 11.1 10^3/uL (4.0-10.0)
--- NOTE | 2020-12-06 20:00 | REPVR ---
PROCEDURE INFORMATION: Exam: CT Abdomen And Pelvis Without Contrast Exam date and time: 12/06/2020 7:15 PM Age: 70 years old Clinical indication: Abdominal pain; Additional info: Abd pain TECHNIQUE: Imaging protocol: Computed tomography of the abdomen and pelvis without contrast. Radiation optimization: All CT scans at this facility use at least one of these dose optimization techniques: automated exposure control; mA and/or kV adjustment per patient size (includes targeted exams where dose is matched to clinical indication); or iterative reconstruction. COMPARISON: CT ABD/PEL W/IV CONTRAST ONLY 10/01/2020 11:52 AM FINDINGS: Lungs: No suspicious mass or airspace process in the visualized lung bases. Liver: Liver may be cirrhotic with nodular anterior contours. Gallbladder and bile ducts: Gallbladder is present and shows no evidence of gallstone. Pancreas: Noncontrast pancreas shows no obvious mass or adjacent fluid. Spleen: Noncontrast spleen shows no obvious focal deformity. Adrenal glands: Adrenal glands are normal in appearance. Kidneys and ureters: Kidneys are unremarkable aside from nonobstructive left renal stones. No hydronephrosis or ureter stone. Stomach and bowel: Gastric band device is present. No obstructive change or adjacent fluid. Soft tissue stranding in the right upper quadrant subcutaneous tissues along the tract of the catheter without obvious fluid collection No evidence of small bowel obstruction. No evidence of acute diverticulitis. Appendix: Appendix may be surgically absent. No right lower quadrant inflammatory process. Intraperitoneal space: No pneumoperitoneum. Vasculature: Atherosclerotic change present in the aorta, without aneurysm. Lymph nodes: No enlarged lymph nodes. Urinary bladder: Urinary bladder appears normal. Reproductive: Uterus is surgically absent. Bones/joints: Bony structures are normal except for lumbar spine degenerative disc changes. Soft tissues: No pelvic hematoma. Other findings: Limited evaluation without enteric or IV contrast. IMPRESSION: 1. Gastric band device with edema along the tract in the subcutaneous tissues of the right upper quadrant. No obvious focal fluid collection. Overall similar appearance to the prior CT from September 2020. 2. 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 3. No acute bowel process. 4. Nonobstructive right renal calculi Electronically signed by: Butch Long On 12/06/2020 20:00:10 PM
[2020-12-06 20:05] LABS: ALBUMIN 3.4 GM/DL (3.2-5.2); ALT/SGPT 74 U/L (12-78); BILIRUBIN,DIRECT 0.1 MG/DL (0.0-0.2); BILIRUBIN,TOTAL 0.2 MG/DL (0.2-1.0); BLOOD UREA NITROGEN 22 MG/DL (7-18); CALCIUM LEVEL 9.6 MG/DL (8.8-10.2); CARBON DIOXIDE LEVEL 30 MEQ/L (21-32); CHLORIDE LEVEL 102 MEQ/L (98-107); CREATININE FOR GFR 0.91 MG/DL (0.55-1.30); GLOMERULAR FILTRATION RATE > 60.0 (>39); GLUCOSE, FASTING 95 MG/DL (70-100); LIPASE 88 U/L (73-393); POTASSIUM SERUM 3.8 MEQ/L (3.5-5.1); SODIUM LEVEL 138 MEQ/L (136-145); TOTAL PROTEIN 7.4 GM/DL (6.4-8.2)
[2020-12-06 21:20] VITALS: BP 158/62
--- NOTE | 2020-12-07 14:15 | ED PDOC ---
Post-Departure Follow-Up ct abd/p faxed to dr weber for fu Josseline Brown MD Dec 07, 2020 14:15
== END 2020-12-06 21:27 | disposition home or self-care (01) ==
LOC: M ED 18:47
DX: R10.84 Generalized abdominal pain (principal); N20.0 Calculus of kidney; E11.9 Type 2 diabetes mellitus without complications; J44.9 Chronic obstructive pulmonary disease, unspecified; I10 Essential (primary) hypertension; Z88.2 Allergy status to sulfonamides; Z88.8 Allergy status to other drugs, medicaments and biological substances; Z79.899 Other long term (current) drug therapy
CPT/HCPCS: 11042; 74176; 80047; 80048; 80076; 83690; 85025; 93041; 96361; 96374; 99284; C9113

== ENCOUNTER → 2021-02-22 | Outpatient (CLI) | payer OTHER, MEDICAID ==
[2021-02-22 12:05] LABS: BASO # 0.1 10^3/uL (0.0-0.2); BASO % 0.7 % (0.0-1.0); EOS # 0.2 10^3/uL (0.0-0.5); EOS % 2.7 % (0.0-3.0); HEMATOCRIT 38.5 % (36.0-47.0); HEMOGLOBIN 12.7 g/dl (12.0-15.5); LYMPH # 1.9 10^3/uL (1.5-5.0); LYMPH % 22.6 % (24.0-44.0); MEAN CORPUSCULAR HEMOGLOBIN 28.7 pg (27.0-33.0); MEAN CORPUSCULAR VOLUME 87.1 fl (80.0-96.0); MONO # 0.5 10^3/uL (0.0-0.8); MONO % 5.9 % (2.0-8.0); NEUTROPHILS # 5.6 10^3/uL (1.5-8.5); NEUTROPHILS % 67.9 % (36.0-66.0); PLATELET COUNT, AUTOMATED 216 10^3/uL (150-450); RED BLOOD COUNT 4.42 10^6/uL (4.00-5.40); WHITE BLOOD COUNT 8.3 10^3/uL (4.0-10.0)
[2021-02-22 12:07] LABS: HEMATOCRIT 38.5 % (36.0-47.0)
[2021-02-22 13:17] LABS: ALBUMIN 3.3 GM/DL (3.2-5.2); ALT/SGPT 245 U/L (12-78); BILIRUBIN,TOTAL 0.5 MG/DL (0.2-1.0); BLOOD UREA NITROGEN 34 MG/DL (7-18); CALCIUM LEVEL 8.5 MG/DL (8.8-10.2); CARBON DIOXIDE LEVEL 27 MEQ/L (21-32); CHLORIDE LEVEL 102 MEQ/L (98-107); CREATININE FOR GFR 1.12 MG/DL (0.55-1.30); FERRITIN 359 NG/ML (8-252); GLOMERULAR FILTRATION RATE 50.9 (>39); GLUCOSE, FASTING 279 MG/DL (70-100); IRON (FE) 104 UG/DL (50-170); MAGNESIUM LEVEL 2.1 MG/DL (1.8-2.4); PERCENT SATURATION 31.9 % (13.2-45.0); PHOSPHORUS LEVEL 4.1 MG/DL (2.5-4.9); SODIUM LEVEL 137 MEQ/L (136-145); TOTAL 25(OH) VITAMIN D 53.6 NG/ML (30.0-100.0); TOTAL IRON BINDING CAPACITY 326 UG/DL (250-450); VITAMIN B12 LEVEL > 2000 PG/ML (247-911)
[2021-02-22 14:44] LABS: HEMOGLOBIN A1c 7.2 %
== END ==
LOC: M LAB 11:07
PROVIDERS: ATTEND Physician Assistant
DX: K91.2 Postsurgical malabsorption, not elsewhere classified (principal); Z98.84 Bariatric surgery status; E55.9 Vitamin D deficiency, unspecified; Z86.39 Personal history of other endocrine, nutritional and metabolic disease

== ENCOUNTER → 2021-05-03 | Outpatient (CLI) | payer OTHER, MEDICAID ==
[~2021-05-03] MED LIST changes: +ISOVUE-370 76% 100ML VIAL As Ordered ONE; -KLOR10TA76 PO; -MAGN400T3 PO; +MAGN400T33 PO; +POTA-136 PO
--- NOTE | 2021-05-03 16:44 | REP ---
INDICATION: F/U PULMONARY NODULE. COMPARISON: PA chest 10/01/2020, images from the lower chest and upper abdomen on CT 12/06/2020. TECHNIQUE: Bolus 75 mL Isovue 370 scanning through the chest with coronal and sagittal reconstructions provided. FINDINGS: Lungs are well inflated. Tiny nodule in the inferior lingular segment of the left upper lobe at the anterior left lung base on image 74 unchanged from the previous abdominal CT on image 32 is about 3 mm. It has some small calcification associated with it. The remainder of the left lung and the right lung are without significant nodules, mass, pleural thickening, pleural plaque or calcification, effusion or other acute finding. The heart is not enlarged. There is no pericardial thickening or effusion. Some minor atherosclerotic calcifications of the aorta without aneurysm or dissection. There is no pathologic sized mediastinal or hilar adenopathy. Main, right and left pulmonary arteries in the mediastinum are without filling defects. No axillary or supraclavicular mass noted. Tracheal airway intact. There is a lap band around the gastroesophageal junction and some edema or thickening of the distal esophagus is again noted. Bone windows show some degenerative disc changes in the cervical and thoracic levels scattered throughout and without destructive lesion or compression deformity. The sternum, manubrium, medial clavicles, visualized scapulae, portions of humeral heads and ribs, all without acute finding. The liver shows enlargement of the left hepatic lobe and slight lobulation of contour which may reflect some mild chronic liver disease. No gross splenomegaly, focal hepatic or splenic lesion nor ascites. The adrenal glands are unremarkable. Visualized pancreas intact gallbladder shows no calcified stone or mass. Colon and small bowel loops in the upper abdomen were unremarkable. Adrenal glands unchanged. The kidneys show no acute finding. IMPRESSION: 1. The only significant nodule seen is a sub 4 mm nodule inferior lingular segment of the left upper lobe at the anterior left lung base unchanged. It has a few calcifications and is consistent with benign finding. 2. Evidence suggesting some mild chronic liver disease with prominent left hepatic lobe, slightly lobulated contour but no discrete hepatic mass, biliary dilatation or ascites. 3. The heart, aorta and airway are unremarkable. 4. Pulmonary arteries are prominent centrally without filling defect 5. Lap band device at the GE junction. The distal esophagus shows some slight wall thickening or edema. Appearance is the similar to the prior study on 12/06/2020. This could be the sequelae of reflux esophagitis or other. <Electronically signed by Tu Tio > 05/03/21 1640
== END ==
LOC: M RAD 13:43
PROVIDERS: ATTEND Family Medicine
DX: R91.1 Solitary pulmonary nodule (principal)
CPT/HCPCS: 71260; Q9967

== ENCOUNTER → 2021-08-16 | Outpatient (CLI) | payer OTHER, MEDICAID ==
[~2021-08-16] MED LIST changes: -ISOVUE-370 76% 100ML VIAL As Ordered ONE; -MOME50SP NARES; +NASO50SP3 NARES
[2021-08-16 11:21] LABS: BASO % 0.4 % (0.0-1.0); EOS # 0.2 10^3/uL (0.0-0.5); HEMATOCRIT 42.6 % (36.0-47.0); HEMOGLOBIN 13.7 g/dl (12.0-15.5); LYMPH # 2.4 10^3/uL (1.5-5.0); LYMPH % 24.5 % (24.0-44.0); MEAN CORPUSCULAR HEMOGLOBIN 29.1 pg (27.0-33.0); MEAN CORPUSCULAR HGB CONC 32.2 g/dl (32.0-36.5); MEAN CORPUSCULAR VOLUME 90.6 fl (80.0-96.0); MONO # 0.7 10^3/uL (0.0-0.8); MONO % 6.8 % (2.0-8.0); NEUTROPHILS # 6.4 10^3/uL (1.5-8.5); PLATELET COUNT, AUTOMATED 221 10^3/uL (150-450); WHITE BLOOD COUNT 9.7 10^3/uL (4.0-10.0)
[2021-08-16 12:00] LABS: ALBUMIN 3.7 GM/DL (3.2-5.2); BILIRUBIN,TOTAL 0.2 MG/DL (0.2-1.0); CALCIUM LEVEL 9.7 MG/DL (8.8-10.2); CREATININE FOR GFR 1.16 MG/DL (0.55-1.30); GLOMERULAR FILTRATION RATE 48.9 (>39); POTASSIUM SERUM 4.1 MEQ/L (3.5-5.1); THYROID STIMULATING HORMONE 2.16 uIU/ML (0.358-3.740); TOTAL PROTEIN 7.2 GM/DL (6.4-8.2); URIC ACID 3.3 MG/DL (2.6-6.0)
== END ==
LOC: M LAB 09:02
PROVIDERS: ATTEND Family Medicine
DX: Z01.810 Encounter for preprocedural cardiovascular examination (principal); I25.10 Atherosclerotic heart disease of native coronary artery without angina pectoris; I12.9 Hypertensive chronic kidney disease with stage 1 through stage 4 chronic kidney disease, or unspecified chronic kidney disease; N18.30 Chronic kidney disease, stage 3 unspecified; E78.5 Hyperlipidemia, unspecified; Z79.899 Other long term (current) drug therapy

== ENCOUNTER → 2021-08-16 | Outpatient (CLI) | payer OTHER, MEDICAID ==
[2021-08-16 11:44] LABS: CREATININE FOR GFR 1.14 MG/DL (0.55-1.30); GLOMERULAR FILTRATION RATE 49.9 (>39)
== END ==
LOC: M LAB 09:04
PROVIDERS: ATTEND Surgery
DX: Z01.810 Encounter for preprocedural cardiovascular examination (principal)

== ENCOUNTER → 2021-08-18 | Outpatient (CLI) | payer OTHER ==
[~2021-08-18] MED LIST changes: +CYSTO-CONRAY II 17.2% 250ML VIAL (Q9958) As Ordered ONE; +ISOVUE-370 76% 100ML VIAL As Ordered ONE
== END ==
LOC: M RAD 09:44
PROVIDERS: ATTEND Surgery
DX: S31.100A Unspecified open wound of abdominal wall, right upper quadrant without penetration into peritoneal cavity, initial encounter (principal); T81.49XD Infection following a procedure, other surgical site, subsequent encounter; Z48.815 Encounter for surgical aftercare following surgery on the digestive system; Z98.84 Bariatric surgery status
CPT/HCPCS: 74178; 76000; Q9958; Q9967

== ENCOUNTER 2021-09-27 21:11 | Inpatient (IN) | payer OTHER, MEDICAID ==
[~2021-09-27] VITALS: Ht 154.9 cm; Wt 83.9 kg
[~2021-09-27 21:11] MED LIST changes: -CYSTO-CONRAY II 17.2% 250ML VIAL (Q9958) As Ordered ONE; -ISOVUE-370 76% 100ML VIAL As Ordered ONE
[2021-09-27] MEDS ORDERED: MORPHINE 4 MG/ML 1ML VIAL/SYRINGE IV ONE (21:40)
[2021-09-27] MEDS ORDERED: ONDANSETRON 4MG/2ML VIAL IV ONE (21:40)
[2021-09-27 22:17] LABS: BASO # 0.1 10^3/uL (0.0-0.2); BASO % 0.5 % (0.0-1.0); EOS # 0.1 10^3/uL (0.0-0.5); EOS % 0.6 % (0.0-3.0); HEMATOCRIT 39.3 % (36.0-47.0); LYMPH # 1.1 10^3/uL (1.5-5.0); LYMPH % 8.5 % (24.0-44.0); MEAN CORPUSCULAR HEMOGLOBIN 29.5 pg (27.0-33.0); MEAN CORPUSCULAR HGB CONC 33.1 g/dl (32.0-36.5); MEAN CORPUSCULAR VOLUME 89.1 fl (80.0-96.0); MONO # 0.8 10^3/uL (0.0-0.8); MONO % 6.3 % (2.0-8.0); NEUTROPHILS # 10.9 10^3/uL (1.5-8.5); NEUTROPHILS % 83.6 % (36.0-66.0); PLATELET COUNT, AUTOMATED 251 10^3/uL (150-450); RED BLOOD COUNT 4.41 10^6/uL (4.00-5.40); WHITE BLOOD COUNT 13.1 10^3/uL (4.0-10.0)
[2021-09-27] MEDS ORDERED: ISOVUE-370 76% 100ML VIAL As Ordered ONE (22:24)
[2021-09-27 22:52] LABS: ALBUMIN 3.5 GM/DL (3.2-5.2); BILIRUBIN,DIRECT 2.5 MG/DL (0.0-0.2); BILIRUBIN,TOTAL 2.9 MG/DL (0.2-1.0)
[2021-09-27] MEDS ORDERED: HumuLIN R (REGULAR) INSULIN (NovoLIN R) **100U/ML** PER UNIT IV ONE (23:10)
[2021-09-27] MEDS ORDERED: NS 1,000 ML IV ONE (23:10)
[2021-09-27] MEDS ORDERED: PIPERACILLIN/TAZOBACTAM SOD 3.375 GM in D5W MINI-BAG PLUS 50 ML IV ONE (23:10)
[2021-09-28 01:07] LABS: RSV AMPLIFICATION NEGATIVE (NEGATIVE)
[2021-09-28] MEDS ORDERED: NS 1,000 ML IV SCH (01:15)
[2021-09-28] MEDS ORDERED: NS 1,000 ML IV ONE (01:15)
[2021-09-28] MEDS ORDERED: MORPHINE 4 MG/ML 1ML VIAL/SYRINGE IV ONE (01:55)
[2021-09-28] MEDS ORDERED: GLUCOSE 4GM CHEW TABLET PO PRN (02:10)
[2021-09-28] MEDS ORDERED: GLUCAGON INJ 1MG VIAL SC PRN (02:10)
[2021-09-28] MEDS ORDERED: DEXTROSE 50% 50 ML SYRINGE IV PRN (02:10)
[2021-09-28] MEDS ORDERED: NASA1SPR (02:33)
[2021-09-28] MEDS ORDERED: GLUC3SPR (02:33)
[2021-09-28] MEDS ORDERED: GLUC1CHW11 PO (02:33)
[2021-09-28] MEDS ORDERED: SENN1TAB41 PO (02:33)
[2021-09-28] MEDS ORDERED: LORA-674 PO (02:33)
[2021-09-28] MEDS ORDERED: MIRA1POW3 PO (02:33)
[2021-09-28] MEDS ORDERED: VITMTA PO (02:33)
[2021-09-28] MEDS ORDERED: ALLO300T2 PO (02:33)
[2021-09-28] MEDS ORDERED: HOME MED LIST COMPLETE! XX SCH (02:35)
[2021-09-28 03:50] LABS: CHOLESTEROL RISK RATIO 5.146 (<5)
[2021-09-28] MEDS: HumaLOG INSULIN (NovoLOG) PER UNIT SC SCH ×4 (05:00→17:47)
[2021-09-28] MEDS ORDERED: PIPERACILLIN/TAZOBACTAM SOD 4.5 GM in D5W MINI-BAG PLUS 50 ML IV SCH (06:00)
[2021-09-28] MEDS: NS 1,000 ML IV SCH ×2 (06:25→13:15)
[2021-09-28] MEDS: HEPARIN SOD (PORCINE) 5000UNITS/ML 1ML VIAL/SYRINGE SC SCH ×3 (06:25→21:25)
[2021-09-28] MEDS: PIPERACILLIN/TAZOBACTAM SOD 3.375 GM in D5W MINI-BAG PLUS 50 ML IV SCH ×3 (06:26→17:47)
[2021-09-28] MEDS: MORPHINE 4 MG/ML 1ML VIAL/SYRINGE IV PRN ×3 (08:43→21:25)
[2021-09-28 08:56] LABS: INR 1.08; PROTHROMBIN TIME 14.4 SECONDS (12.7-14.5)
[2021-09-28 09:05] LABS: ALBUMIN 2.9 GM/DL (3.2-5.2); BILIRUBIN,TOTAL 2.3 MG/DL (0.2-1.0); CALCIUM LEVEL 8.3 MG/DL (8.8-10.2); CREATININE FOR GFR 1.16 MG/DL (0.55-1.30); GLOMERULAR FILTRATION RATE 48.8 (>39); POTASSIUM SERUM 3.9 MEQ/L (3.5-5.1); TOTAL PROTEIN 5.9 GM/DL (6.4-8.2)
[2021-09-28 15:00] VITALS: BP 143/62
[2021-09-28 20:00] VITALS: BP 144/60
[2021-09-28] MEDS ORDERED: ZOSYN 3.375GM VIAL As Ordered ONE (23:52)
[2021-09-29] VITALS: BP 122/57
[2021-09-29] MEDS: PIPERACILLIN/TAZOBACTAM SOD 3.375 GM in D5W MINI-BAG PLUS 50 ML IV SCH ×4 (00:02→17:01)
[2021-09-29 04:00] VITALS: BP_SYST 127; BP_SYST 133; BP_DIAS 61; BP_DIAS 70
[2021-09-29 06:00] LABS: HEMATOCRIT 33.7 % (36.0-47.0); MEAN CORPUSCULAR HGB CONC 32.6 g/dl (32.0-36.5); MEAN CORPUSCULAR VOLUME 91.8 fl (80.0-96.0); PLATELET COUNT, AUTOMATED 165 10^3/uL (150-450); RED BLOOD COUNT 3.67 10^6/uL (4.00-5.40); WHITE BLOOD COUNT 6.2 10^3/uL (4.0-10.0)
[2021-09-29] MEDS: HumaLOG INSULIN (NovoLOG) PER UNIT SC SCH ×4 (06:00→17:02)
[2021-09-29] MEDS ORDERED: ZOSYN 3.375GM VIAL As Ordered ONE (06:02)
[2021-09-29] MEDS: HEPARIN SOD (PORCINE) 5000UNITS/ML 1ML VIAL/SYRINGE SC SCH ×3 (06:17→20:14)
[2021-09-29] MEDS: MORPHINE 4 MG/ML 1ML VIAL/SYRINGE IV PRN ×2 (06:18→13:36)
[2021-09-29 06:25] LABS: ALBUMIN 2.7 GM/DL (3.2-5.2); CREATININE FOR GFR 1.03 MG/DL (0.55-1.30); GLOMERULAR FILTRATION RATE 55.9 (>39); POTASSIUM SERUM 3.7 MEQ/L (3.5-5.1); TOTAL PROTEIN 5.6 GM/DL (6.4-8.2)
[2021-09-29 08:24] VITALS: BP 133/63
[2021-09-29] MEDS ORDERED: FLUTICASONE HFA 220 MCG 12 GM INHALER (FLOVENT) INH PRN (10:05)
[2021-09-29] MEDS ORDERED: ALBUTEROL 90 MCG/ACT 8GM HFA INHALER INH PRN (10:05)
[2021-09-29] MEDS ORDERED: LIDOCAINE 5% (LIDODERM) PATCH TD PRN (10:05)
[2021-09-29] MEDS: SENOKOT S TAB PO SCH ×2 (11:42→20:13)
[2021-09-29] MEDS: buPROPion **SR TABLET** (ZYBAN) 150MG PO SCH ×2 (11:42→20:13)
[2021-09-29] MEDS: allopurinoL 300 MG TAB PO SCH (11:43)
[2021-09-29] MEDS: MULTIVITAMINS/MINERALS THERAP 1 TAB PO SCH (11:43)
[2021-09-29] MEDS: EZETIMIBE 10MG TABLET (ZETIA) PO SCH (11:43)
[2021-09-29] MEDS: LORATADINE 10 MG TAB PO SCH (11:44)
[2021-09-29 15:52] VITALS: BP 139/61
[2021-09-29] MEDS: FUROSEMIDE 20 MG TAB PO SCH (17:03)
[2021-09-29 20:00] VITALS: BP 119/72
[2021-09-29] MEDS ORDERED: **NOTE PATIENT COMMENT** MISC XX SCH (21:00)
[2021-09-30] VITALS: BP 122/68
[2021-09-30] MEDS ORDERED: ZOSYN 3.375GM VIAL As Ordered ONE ×2 (00:17→06:29)
[2021-09-30] MEDS: HumaLOG INSULIN (NovoLOG) PER UNIT SC SCH ×3 (00:36→12:24)
[2021-09-30] MEDS: PIPERACILLIN/TAZOBACTAM SOD 3.375 GM in D5W MINI-BAG PLUS 50 ML IV SCH ×3 (00:36→13:00)
[2021-09-30] MEDS: MORPHINE 4 MG/ML 1ML VIAL/SYRINGE IV PRN ×2 (03:10→08:46)
[2021-09-30 04:00] VITALS: BP 130/72
[2021-09-30 05:50] LABS: HEMATOCRIT 36.1 % (36.0-47.0); HEMOGLOBIN 11.7 g/dl (12.0-15.5); MEAN CORPUSCULAR HEMOGLOBIN 29.7 pg (27.0-33.0); MEAN CORPUSCULAR HGB CONC 32.4 g/dl (32.0-36.5); MEAN CORPUSCULAR VOLUME 91.6 fl (80.0-96.0); PLATELET COUNT, AUTOMATED 177 10^3/uL (150-450); RED BLOOD COUNT 3.94 10^6/uL (4.00-5.40); WHITE BLOOD COUNT 8.2 10^3/uL (4.0-10.0)
[2021-09-30 06:20] LABS: ALBUMIN 2.8 GM/DL (3.2-5.2); BILIRUBIN,TOTAL 0.8 MG/DL (0.2-1.0); CALCIUM LEVEL 8.5 MG/DL (8.8-10.2); CREATININE FOR GFR 1.03 MG/DL (0.55-1.30); GLOMERULAR FILTRATION RATE 55.9 (>39); POTASSIUM SERUM 3.6 MEQ/L (3.5-5.1); TOTAL PROTEIN 6.8 GM/DL (6.4-8.2)
[2021-09-30] MEDS: HEPARIN SOD (PORCINE) 5000UNITS/ML 1ML VIAL/SYRINGE SC SCH (06:30)
[2021-09-30 08:00] VITALS: BP 140/60
[2021-09-30 08:39] VITALS: BP 140/60
[2021-09-30] MEDS: MULTIVITAMINS/MINERALS THERAP 1 TAB PO SCH (08:39)
[2021-09-30] MEDS: EZETIMIBE 10MG TABLET (ZETIA) PO SCH (08:39)
[2021-09-30] MEDS: allopurinoL 300 MG TAB PO SCH (08:39)
[2021-09-30] MEDS: LORATADINE 10 MG TAB PO SCH (08:40)
[2021-09-30] MEDS: SENOKOT S TAB PO SCH (08:40)
[2021-09-30] MEDS: buPROPion **SR TABLET** (ZYBAN) 150MG PO SCH (08:40)
[2021-09-30] MEDS: FUROSEMIDE 20 MG TAB PO SCH (08:40)
[2021-09-30] MEDS ORDERED: METR-265 PO (10:32)
[2021-09-30] MEDS ORDERED: CIPR250T3 PO (10:32)
[2021-09-30] MEDS ORDERED: PERCOCET 5MG/325MG TAB PO ONE (14:00)
== END 2021-09-30 13:59 | disposition home health service (06) | DRG 439 ==
LOC: M ED 21:11 → M ED INP 09-28 01:56 → ENRESERV 09-28 13:50 → M PCU 09-28 14:51
PROVIDERS: ADMIT Family Medicine; ATTEND Internal Medicine
DX: K85.10 Biliary acute pancreatitis without necrosis or infection (principal); K80.00 Calculus of gallbladder with acute cholecystitis without obstruction; N18.30 Chronic kidney disease, stage 3 unspecified; J44.9 Chronic obstructive pulmonary disease, unspecified; E78.5 Hyperlipidemia, unspecified; Z79.4 Long term (current) use of insulin; E11.22 Type 2 diabetes mellitus with diabetic chronic kidney disease; G47.33 Obstructive sleep apnea (adult) (pediatric); H40.9 Unspecified glaucoma; I12.9 Hypertensive chronic kidney disease with stage 1 through stage 4 chronic kidney disease, or unspecified chronic kidney disease; Z79.899 Other long term (current) drug therapy; Z88.8 Allergy status to other drugs, medicaments and biological substances; Z88.2 Allergy status to sulfonamides; M10.9 Gout, unspecified; R53.81 Other malaise; Z87.891 Personal history of nicotine dependence

== ENCOUNTER 2021-12-17 08:59 | Emergency (ER) | payer OTHER, MEDICAID ==
[~2021-12-17] VITALS: Ht 154.9 cm; Wt 86.4 kg
[~2021-12-17 08:59] MED LIST changes: +ALLO300T2 PO; +CIPR250T3 PO; +GLUC1CHW11 PO; +GLUC3SPR; +LORA-674 PO; +METR-265 PO; +MIRA1POW3 PO; +NASA1SPR; +SENN1TAB41 PO; +VITMTA PO
[2021-12-17 09:57] LABS: VENOUS BASE EXCESS 1.6 (-2.0-2.0); VENOUS HCO3 26.5 MEQ/L (23.0-27.0); VENOUS O2 SATURATION 86.6 % (60.0-80.0); VENOUS PARTIAL PRESSURE CO2 42.7 mmHg (38.0-50.0); VENOUS PARTIAL PRESSURE O2 49.3 mmHg (30.0-50.0); VENOUS STANDARD HCO3 25.6 MEQ/L; VENOUS TOTAL CO2 27.8 MEQ/L (24.0-28.0)
[2021-12-17 10:04] LABS: BASO % 0.6 % (0.0-1.0); EOS # 0.1 10^3/uL (0.0-0.5); EOS % 1.7 % (0.0-3.0); HEMATOCRIT 37.5 % (36.0-47.0); HEMOGLOBIN 12.5 g/dl (12.0-15.5); LYMPH # 1.9 10^3/uL (1.5-5.0); LYMPH % 25.8 % (24.0-44.0); MEAN CORPUSCULAR HEMOGLOBIN 29.8 pg (27.0-33.0); MEAN CORPUSCULAR HGB CONC 33.3 g/dl (32.0-36.5); MEAN CORPUSCULAR VOLUME 89.5 fl (80.0-96.0); MONO # 0.6 10^3/uL (0.0-0.8); MONO % 8.3 % (2.0-8.0); NEUTROPHILS # 4.6 10^3/uL (1.5-8.5); NEUTROPHILS % 63.3 % (36.0-66.0); PLATELET COUNT, AUTOMATED 184 10^3/uL (150-450); RED BLOOD COUNT 4.19 10^6/uL (4.00-5.40); WHITE BLOOD COUNT 7.3 10^3/uL (4.0-10.0)
[2021-12-17 10:25] LABS: HEMOGLOBIN A1c 7.9 %
[2021-12-17 10:53] LABS: ACETONE/KETONE 2.32 MG/DL (<2.81); ALBUMIN 3.1 GM/DL (3.2-5.2); ALT/SGPT 36 U/L (12-78); BILIRUBIN,DIRECT < 0.1 MG/DL (0.0-0.2); BILIRUBIN,TOTAL 0.3 MG/DL (0.2-1.0); BLOOD UREA NITROGEN 23 MG/DL (7-18); CALCIUM LEVEL 8.5 MG/DL (8.8-10.2); CARBON DIOXIDE LEVEL 29 MEQ/L (21-32); CHLORIDE LEVEL 95 MEQ/L (98-107); CREATININE FOR GFR 1.52 MG/DL (0.55-1.30); GLOMERULAR FILTRATION RATE 35.7 (>39); GLUCOSE, FASTING 635 MG/DL (70-100); LIPASE 75 U/L (73-393); POTASSIUM SERUM 5.8 MEQ/L (3.5-5.1); SODIUM LEVEL 133 MEQ/L (136-145); TOTAL PROTEIN 7.2 GM/DL (6.4-8.2)
[2021-12-17 10:57] LABS: OSMOLALITY SERUM 313 MOSM/KG (280-301)
[2021-12-17] MEDS ORDERED: HumuLIN R (REGULAR) INSULIN (NovoLIN R) **100U/ML** PER UNIT SC ONE (11:15)
[2021-12-17 12:00] VITALS: BP 180/79
== END 2021-12-17 12:32 | disposition home or self-care (01) ==
LOC: M ED 08:59
DX: E11.65 Type 2 diabetes mellitus with hyperglycemia (principal); I44.0 Atrioventricular block, first degree; I44.7 Left bundle-branch block, unspecified; I10 Essential (primary) hypertension; E78.5 Hyperlipidemia, unspecified; J44.9 Chronic obstructive pulmonary disease, unspecified; Z87.891 Personal history of nicotine dependence; Z79.4 Long term (current) use of insulin; Z88.2 Allergy status to sulfonamides; Z88.1 Allergy status to other antibiotic agents; Z88.8 Allergy status to other drugs, medicaments and biological substances; Z79.51 Long term (current) use of inhaled steroids; Z79.811 Long term (current) use of aromatase inhibitors; Z79.899 Other long term (current) drug therapy
CPT/HCPCS: 36415; 80048; 80076; 82010; 82803; 83036; 83690; 83930; 85025; 93005; 93041; 94760; 99284; J1815

== ENCOUNTER 2022-03-06 11:11 | Emergency (ER) | payer OTHER, MEDICAID ==
[~2022-03-06] VITALS: Ht 154.9 cm; Wt 82.0 kg
[~2022-03-06 11:11] MED LIST changes: +ALBU6.7H6 INH; +LEVO1TAB40 PO; -LEVO750T13 PO; -PROV108A INH
[2022-03-06 12:33] LABS: BASO # 0.1 10^3/uL (0.0-0.2); BASO % 0.6 % (0.0-1.0); EOS # 0.2 10^3/uL (0.0-0.5); EOS % 2.1 % (0.0-3.0); HEMATOCRIT 38.9 % (36.0-47.0); LYMPH # 1.9 10^3/uL (1.5-5.0); LYMPH % 22.1 % (24.0-44.0); MEAN CORPUSCULAR HEMOGLOBIN 30.5 pg (27.0-33.0); MEAN CORPUSCULAR HGB CONC 33.4 g/dl (32.0-36.5); MEAN CORPUSCULAR VOLUME 91.3 fl (80.0-96.0); MONO # 0.6 10^3/uL (0.0-0.8); MONO % 6.4 % (2.0-8.0); NEUTROPHILS # 5.9 10^3/uL (1.5-8.5); NEUTROPHILS % 68.5 % (36.0-66.0); PLATELET COUNT, AUTOMATED 216 10^3/uL (150-450); RED BLOOD COUNT 4.26 10^6/uL (4.00-5.40); WHITE BLOOD COUNT 8.6 10^3/uL (4.0-10.0)
[2022-03-06 13:02] LABS: CALCIUM LEVEL 9.4 MG/DL (8.8-10.2); CREATININE FOR GFR 0.97 MG/DL (0.55-1.30); GLOMERULAR FILTRATION RATE 59.9 (>39); POTASSIUM SERUM 3.8 MEQ/L (3.5-5.1)
[2022-03-06 14:10] VITALS: BP 161/72
== END 2022-03-06 14:17 | disposition home or self-care (01) ==
LOC: M ED 11:11
DX: T38.3X1A Poisoning by insulin and oral hypoglycemic [antidiabetic] drugs, accidental (unintentional), initial encounter (principal); I10 Essential (primary) hypertension; J45.909 Unspecified asthma, uncomplicated; G47.33 Obstructive sleep apnea (adult) (pediatric); E11.9 Type 2 diabetes mellitus without complications; Z79.4 Long term (current) use of insulin; Z79.811 Long term (current) use of aromatase inhibitors; Z79.51 Long term (current) use of inhaled steroids; Z79.899 Other long term (current) drug therapy; Z88.1 Allergy status to other antibiotic agents; Z88.2 Allergy status to sulfonamides; Z88.9 Allergy status to unspecified drugs, medicaments and biological substances

== ENCOUNTER → 2022-03-09 | Outpatient (REF) | payer OTHER, MEDICAID | LOC: M LAB REF 16:20 | PROVIDERS: ATTEND Family Medicine | DX: N18.30 Chronic kidney disease, stage 3 unspecified (principal); N39.0 Urinary tract infection, site not specified ==

== ENCOUNTER 2022-04-03 12:30 | Day surgery (SDC) | payer OTHER ==
[~2022-04-03] VITALS: Ht 154.9 cm; Wt 81.6 kg
[~2022-04-03 12:30] MED LIST changes: +TRES1INJ SC
[2022-04-03] MEDS ORDERED: LR 1,000 ML IV SCH ×2 (13:20→15:55)
[2022-04-03] MEDS ORDERED: LIDOCAINE 2% 100MG/5ML SDV (FOR ANES.) As Ordered ONE (14:24)
[2022-04-03] MEDS ORDERED: propofoL 200 MG/20 ML VIAL As Ordered ONE (14:24)
[2022-04-03] MEDS ORDERED: ROCURONIUM BROMIDE 50 MG/5 ML VIAL As Ordered ONE (14:26)
[2022-04-03] MEDS ORDERED: fentaNYL 100 MCG/2 ML INJECTION As Ordered ONE (14:57)
[2022-04-03] MEDS ORDERED: BACITRACIN OINTMENT 30GM TUBE As Ordered ONE (14:59)
[2022-04-03] MEDS ORDERED: LIDOCAINE W/EPINEPHRINE 1% 20ML VIAL As Ordered ONE (14:59)
[2022-04-03] MEDS ORDERED: EPINEPHrine 1MG/ML INJ 30ML MD-VIAL As Ordered ONE (15:00)
[2022-04-03] MEDS ORDERED: METHYLENE BLUE 0.5% (5MG/ML) 10 ML AMP (PROVAYBLUE) As Ordered ONE (15:00)
[2022-04-03] MEDS: OXYMETAZOLINE 0.05% NASAL SPRAY (AFRIN) As Ordered ONE ×2 (15:30→16:04)
[2022-04-03] MEDS ORDERED: ACETAMINOPHEN 1000MG 100ML IV BTL (OFIRMEV) (J0131 PER 10MG) As Ordered ONE ×2 (15:31→15:32)
[2022-04-03] MEDS ORDERED: ONDANSETRON 4MG 2ML VIAL As Ordered ONE (15:34)
[2022-04-03] MEDS ORDERED: SUGAMMADEX SODIUM 500 MG/5 ML VIAL (BRIDION) As Ordered ONE (15:35)
[2022-04-03] MEDS ORDERED: METOCLOPRAMIDE INJ 10MG/2ML VIAL (J2765 PER 1) As Ordered ONE (15:36)
[2022-04-03] MEDS ORDERED: LIDOCAINE 2% JELLY 5ML TUBE As Ordered ONE (15:43)
[2022-04-03] MEDS ORDERED: fentaNYL 100 MCG/2 ML INJECTION IV PRN (15:55)
[2022-04-03] MEDS ORDERED: oxyCODONE 5MG TAB PO PRN (15:55)
[2022-04-03] MEDS ORDERED: ONDANSETRON 4MG 2ML VIAL IV PRN (15:55)
[2022-04-03] MEDS ORDERED: LABETALOL 100MG/20ML VIAL As Ordered ONE (15:58)
[2022-04-03 17:45] VITALS: BP 148/72
== END 2022-04-03 17:51 | disposition home or self-care (01) ==
LOC: M SDC 12:30
PROVIDERS: ATTEND Otolaryngology
DX: C44.321 Squamous cell carcinoma of skin of nose (principal); I10 Essential (primary) hypertension; E78.5 Hyperlipidemia, unspecified; E11.9 Type 2 diabetes mellitus without complications; K21.9 Gastro-esophageal reflux disease without esophagitis; D64.9 Anemia, unspecified; F41.9 Anxiety disorder, unspecified; J44.9 Chronic obstructive pulmonary disease, unspecified; G47.33 Obstructive sleep apnea (adult) (pediatric); Z79.899 Other long term (current) drug therapy; Z88.2 Allergy status to sulfonamides; Z88.8 Allergy status to other drugs, medicaments and biological substances; Z79.4 Long term (current) use of insulin
CPT/HCPCS: 30117; 87635; 88305; J0131; J2405; J2765; J3010

== ENCOUNTER → 2022-06-01 | Outpatient (CLI) | payer OTHER, MEDICAID ==
[~2022-06-01] MED LIST changes: +TENO1TAB4 PO
== END ==
LOC: M ONCR 13:42
PROVIDERS: ATTEND General Practice
DX: C44.321 Squamous cell carcinoma of skin of nose (principal); E11.9 Type 2 diabetes mellitus without complications; G47.33 Obstructive sleep apnea (adult) (pediatric); I11.0 Hypertensive heart disease with heart failure; I51.9 Heart disease, unspecified; J44.9 Chronic obstructive pulmonary disease, unspecified; K21.9 Gastro-esophageal reflux disease without esophagitis; M10.9 Gout, unspecified; N18.9 Chronic kidney disease, unspecified; Z79.4 Long term (current) use of insulin; Z79.51 Long term (current) use of inhaled steroids; Z79.899 Other long term (current) drug therapy; Z80.1 Family history of malignant neoplasm of trachea, bronchus and lung; Z87.891 Personal history of nicotine dependence; Z88.2 Allergy status to sulfonamides; Z88.8 Allergy status to other drugs, medicaments and biological substances; Z90.710 Acquired absence of both cervix and uterus; Z90.79 Acquired absence of other genital organ(s); Z98.84 Bariatric surgery status

== ENCOUNTER → 2022-06-06 | Outpatient (REF) | payer OTHER, MEDICAID | LOC: M LAB REF 12:47 | PROVIDERS: ATTEND Family Medicine | DX: N39.0 Urinary tract infection, site not specified (principal) ==

== ENCOUNTER 2022-06-30 13:05 | Outpatient (RCR) | payer OTHER, MEDICAID | END 2022-07-01 | LOC: M ONCR 13:05 | PROVIDERS: ATTEND General Practice | DX: C30.0 Malignant neoplasm of nasal cavity (principal) ==

== ENCOUNTER 2022-08-01 21:53 | Emergency (ER) | payer OTHER, MEDICAID ==
[~2022-08-01] VITALS: Ht 154.9 cm; Wt 79.5 kg
[~2022-08-01 21:53] MED LIST changes: -CHLO1.4S7 PO; -MORP1SOL PO
[2022-08-01 21:55] VITALS: BP 166/74
[2022-08-03] MEDS ORDERED: MORP1SOL PO (14:02)
[2022-08-04] MEDS ORDERED: CHLO1.4S7 PO (13:46)
[2022-08-07] MEDS ORDERED: TOBRSUS41 OP (14:07)
== END 2022-08-02 01:23 | disposition left against medical advice (07) ==
LOC: M ED 21:53
DX: Z53.21 Procedure and treatment not carried out due to patient leaving prior to being seen by health care provider (principal)

== ENCOUNTER → 2022-08-01 | Outpatient (RCR) | payer OTHER, MEDICAID ==
[~2022-08-01] MED LIST changes: +CHLO1.4S7 PO; +HYDR-4517 PO; +LIDO15SO4 PO; +MORP1SOL PO; +TOBRSUS41 OP
== END ==
LOC: M ONCR 07-04 13:24
PROVIDERS: ATTEND General Practice
DX: C30.0 Malignant neoplasm of nasal cavity (principal)

== ENCOUNTER 2022-08-09 12:55 | Outpatient (RCR) | payer OTHER, MEDICAID ==
[~2022-08-09 12:55] MED LIST changes: +CHLO1.4S7 PO; +MORP1SOL PO
== END 2022-08-29 ==
LOC: M ONCR 12:55
PROVIDERS: ATTEND General Practice
DX: C30.0 Malignant neoplasm of nasal cavity (principal)

== ENCOUNTER → 2022-08-28 | Outpatient (REF) | payer OTHER, MEDICAID | LOC: M LAB REF 16:33 | PROVIDERS: ATTEND Family Medicine | DX: N39.0 Urinary tract infection, site not specified (principal) ==

== ENCOUNTER → 2022-09-06 | Outpatient (CLI) | payer MEDICAID, OTHER | LOC: M ONCR 12:54 | PROVIDERS: ATTEND General Practice | DX: C30.0 Malignant neoplasm of nasal cavity (principal); R43.8 Other disturbances of smell and taste; Z92.3 Personal history of irradiation ==